=== PATIENT | female | born 1970 | race Caucasian/White ===

== ENCOUNTER 2017-12-18 22:21 | Inpatient (IN) | payer OTHER ==
[2017-12-19 00:06] LABS: ABS Basophils 0.1 10^3/ul (0-0.2); ABS Eosinophils 0.3 10^3/ul (0-0.6); ABS Lymphocytes 1.6 10^3/ul (1.0-4.8); ABS Monocytes 0.7 10^3/ul (0-0.8); ABS Neutrophils 8.6 10^3/ul (1.5-7.7); ABS Nucleated RBC 0 10^3/ul; Eosinophil % 2.3 % (0-6); Hematocrit 29 % (35-47); Hemoglobin 9.5 g/dl (12.0-16.0); Lymphocyte % 14.5 % (25-47); Mean Corpuscular HGB Conc 33 g/dl (31-36); Mean Corpuscular Hemoglobin 30 pg (27-31); Mean Corpuscular Volume 89 fL (80-97); Mean Platelet Volume 9.2 um3 (7.4-10.4); Nucleated Red Blood Cells % 0; Platelet Count 265 10^3/ul (150-450); Red Cell Distribution Width 13 % (10.5-15); White Blood Count 11.2 10^3/ul (3.5-10.8)
[2017-12-19 01:22] LABS: Urine Appearance Cloudy; Urine Blood Negative (Negative); Urine Color Yellow; Urine Ketones Negative (Negative); Urine Protein Negative (Negative); Urine Specific Gravity 1.014 (1.010-1.030); Urine Urobilinogen Negative (Negative)
[2017-12-19] MEDS ORDERED: Vancomycin(*) 1,000 MG in NS 0.9% 250 ML* 250 ML IVPB ONE ×2 (01:45→03:30)
[2017-12-19] MEDS ORDERED: Piperacillin/Tazobac ADVAN(*) 3.375 GM in NS 0.9% 100 ML* 100 ML IVPB ONE ×2 (01:46→13:43)
--- NOTE | 2017-12-19 02:21 | ED ---
HPI Febrile Illness - HPI Summary HPI Summary: Complains of fever up to 103 starting Tuesday, and redness and pain appearing on abdomen 2 days. History of breast reduction surgery, tummy tuck, liposuction on 12/06 with [facility] with Dr. Reed. Also complains of possible yeast infection due to vaginal itching and discharge after taking antibiotics for surgery. Currently being treated with Diflucan. Patient called surgeon today and was advised to come to the ED for possible cellulitis. Patient started on Keflex today by phoned in prescription. Denies cough, sore throat, CP, SOB, N/V/D, change in BM - History of Current Complaint Chief Complaint: EDGeneral Time Seen by Provider: 12/18/17 23:39 Hx Last Menstrual Period: 2 years - uterine ablasion Pain Intensity: 1 - Allergy/Home Medications Allergies/Adverse Reactions: Allergies Allergy/AdvReac Type Severity Reaction Status Date / Time codeine Allergy Nausea Verified 12/18/17 22:23 Home Medications: Home Medications Cephalexin CAP* [Keflex 500 CAP*] 500 mg PO TID 12/19/17 [History Confirmed ] oxyCODONE/Acetamin 5/325 MG* [Percocet 5/325 TAB*] 1 tab PO Q4HR PRN 12/19/17 [ History Confirmed 12/19/17] PMH/Surg Hx/FS Hx/Imm Hx Endocrine/Hematology History: Denies: Hx Diabetes, Hx Sickle Cell Disease, Hx Thyroid Disease Cardiovascular History: Denies: Hx Hypertension, Hx Pacemaker/ICD, Other Cardiovascular Problems/ Disorders Respiratory History: Denies: Hx Asthma, Hx Chronic Obstructive Pulmonary Disease (COPD), Other Respiratory Problems/Disorders GI History: Reports: Hx Gastroesophageal Reflux Disease - rarely, treats w/Tums Denies: Hx Ulcer, Other GI Disorders Musculoskeletal History: Reports: Hx Back Problems - herniated discs, chronic pain, Hx Orthopedic Injury - (right) knee ACL repair 1988 Denies: Other Musculoskeletal History Sensory History: Denies: Hx Contacts or Glasses, Hx Hearing Aid Opthamlomology History: Denies: Hx Contacts or Glasses Neurological History: Denies: Other Neuro Impairments/Disorders Psychiatric History: Reports: Hx Anxiety - MEDICATION FOR, Hx Depression - 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 1987 RT ACL REPAIR. 2008 RT KNEE SCOPE- [facility]. EXCISION FOREIGN OBJECT FROM MOUTH A CHILD , BACK SURGERY 2012, TWO CARPAL TUNNEL SURGERIES. LOWER BACK SURGERY- FOR HERNIATED DISC-. RIGHT WRIST CARPAL TUNNEL RELEASE-11/2013 Hx Anesthesia Reactions: No Infectious Disease History: No Infectious Disease History: Denies: Hx Clostridium Difficile, Hx Hepatitis, Hx Human Immunodeficiency Virus (HIV), Hx of Known/Suspected MRSA, Hx Shingles, Hx Tuberculosis, Traveled Outside the [place] in Last 30 Days - Family History Known Family History: Positive: Cardiac Disease - Social History Alcohol Use: None Substance Use Type: Reports: None Smoking Status (MU): Never Smoked Tobacco Have You Smoked in the Last Year: No Review of Systems Positive: Fever Eyes: Negative ENT: Negative Cardiovascular: Negative Respiratory: Negative Gastrointestinal: Negative Positive: discharge Musculoskeletal: Negative Positive: Other Neurological: Negative Psychological: Normal All Other Systems Reviewed And Are Negative: Yes Physical Exam - Summary Physical Exam Summary: Surgical wounds are clean dry and intact. No purulent drainage noted. Drains appear to be functioning properly. Cellulitis across bilateral upper abdomen and suprapubic area. Patient denies abdominal pain but abdomen is tender when palpated. Area over bilateral kidneys is tender, hard to determine whether CVA tenderness or tenderness due to liposuction in this area. Triage Information Reviewed: Yes Vital Signs On Initial Exam: Initial Vitals Temp Pulse Resp BP Pulse Ox 97.6 F 83 18 114/46 96 12/18/17 22:23 12/18/17 22:23 12/18/17 22:23 12/18/17 22:23 12/18/17 22:23 Vital Signs Reviewed: Yes Appearance: Positive: Well-Appearing Skin: Positive: Warm Head/Face: Positive: Normal Head/Face Inspection Eyes: Positive: Normal Neck: Positive: Supple Respiratory/Lung Sounds: Positive: Clear to Auscultation Cardiovascular: Positive: Normal Musculoskeletal: Positive: Normal Neurological: Positive: Normal Psychiatric: Positive: Normal AVPU Assessment: Alert - Sofia Coma Scale Best Eye Response: 4 - Spontaneous Best Motor Response: 6 - Obeys Commands Best Verbal Response: 5 - Oriented Coma Scale Total: 15 Diagnostics - Vital Signs Vital Signs Temp Pulse Resp BP Pulse Ox 12/18/17 23:35 80 93/65 98 12/18/17 23:34 78 99 12/18/17 22:23 97.6 F 83 18 114/46 96 - Laboratory Lab Results: Lab Results 12/18/17 12/18/17 12/18/17 Range/Units 01:00 23:51 23:51 WBC 11.2 H (3.5-10.8) 10^3/ul RBC 3.20 L (4.0-5.4) 10^6/ul Hgb 9.5 L (12.0-16.0) g/dl Hct 29 L (35-47) % MCV 89 (80-97) fL MCH 30 (27-31) pg MCHC 33 (31-36) g/dl RDW 13 (10.5-15) % Plt Count 265 (150-450) 10^3/ul MPV 9.2 (7.4-10.4) um3 Neut % (Auto) 76.6 (38-83) % Lymph % (Auto) 14.5 L (25-47) % Murray % (Auto) 5.9 (0-7) % Eos % (Auto) 2.3 (0-6) % Baso % (Auto) 0.7 (0-2) % Absolute Neuts (auto) 8.6 H (1.5-7.7) 10^3/ul Absolute Lymphs (auto) 1.6 (1.0-4.8) 10^3/ul Absolute Monos (auto) 0.7 (0-0.8) 10^3/ul Absolute Eos (auto) 0.3 (0-0.6) 10^3/ul Absolute Basos (auto) 0.1 (0-0.2) 10^3/ul Absolute Nucleated RBC 0 10^3/ul Nucleated RBC % 0 Sodium 132 L (139-145) mmol/L Potassium 3.5 (3.5-5.0) mmol/L Chloride 102 (101-111) mmol/L Carbon Dioxide 21 L (22-32) mmol/L Anion Gap 9 (2-11) mmol/L BUN 14 (6-24) mg/dL Creatinine 0.68 (0.51-0.95) mg/dL Est GFR ( Amer) 118.3 (>60) Est GFR (Non-Af Amer) 92.0 (>60) BUN/Creatinine Ratio 20.6 H (8-20) Glucose 134 H (70-100) mg/dL Lactic Acid (0.5-2.0) mmol/L Calcium 8.4 L (8.6-10.3) mg/dL Total Bilirubin 0.50 (0.2-1.0) mg/dL AST 12 L (13-39) U/L ALT 13 (7-52) U/L Alkaline Phosphatase 288 H (34-104) U/L C-Reactive Protein 393.83 H (< 5.00) mg/L Total Protein 6.3 L (6.4-8.9) g/dL Albumin 3.0 L (3.2-5.2) g/dL Globulin 3.3 (2-4) g/dL Albumin/Globulin Ratio 0.9 L (1-3) Urine Color Yellow Urine Appearance Cloudy Urine pH 5.0 (5-9) Ur Specific [place] 1.014 (1.010-1.030) Urine Protein Negative (Negative) Urine Ketones Negative (Negative) Urine Blood Negative (Negative) Urine Nitrate Negative (Negative) Urine Bilirubin Negative (Negative) Urine Urobilinogen Negative (Negative) Ur Leukocyte Esterase 3+ A (Negative) Urine WBC (Auto) 3+(>20/hpf) A (Absent) Urine RBC (Auto) Trace(0-2/hpf) (Absent) Ur Squamous Epith Cells Present A (Absent) Ur Transition Epith Cell Present A (Absent) Urine Bacteria Absent (Absent) Urine Glucose Negative (Negative) 12/18/17 Range/Units 23:51 WBC (3.5-10.8) 10^3/ul RBC (4.0-5.4) 10^6/ul Hgb (12.0-16.0) g/dl Hct (35-47) % MCV (80-97) fL MCH (27-31) pg MCHC (31-36) g/dl RDW (10.5-15) % Plt Count (150-450) 10^3/ul MPV (7.4-10.4) um3 Neut % (Auto) (38-83) % Lymph % (Auto) (25-47) % Murray % (Auto) (0-7) % Eos % (Auto) (0-6) % Baso % (Auto) (0-2) % Absolute Neuts (auto) (1.5-7.7) 10^3/ul Absolute Lymphs (auto) (1.0-4.8) 10^3/ul Absolute Monos (auto) (0-0.8) 10^3/ul Absolute Eos (auto) (0-0.6) 10^3/ul Absolute Basos (auto) (0-0.2) 10^3/ul Absolute Nucleated RBC 10^3/ul Nucleated RBC % Sodium (139-145) mmol/L Potassium (3.5-5.0) mmol/L Chloride (101-111) mmol/L Carbon Dioxide (22-32) mmol/L Anion Gap (2-11) mmol/L BUN (6-24) mg/dL Creatinine (0.51-0.95) mg/dL Est GFR ( Amer) (>60) Est GFR (Non-Af Amer) (>60) BUN/Creatinine Ratio (8-20) Glucose (70-100) mg/dL Lactic Acid 0.8 (0.5-2.0) mmol/L Calcium (8.6-10.3) mg/dL Total Bilirubin (0.2-1.0) mg/dL AST (13-39) U/L ALT (7-52) U/L Alkaline Phosphatase (34-104) U/L C-Reactive Protein (< 5.00) mg/L Total Protein (6.4-8.9) g/dL Albumin (3.2-5.2) g/dL Globulin (2-4) g/dL Albumin/Globulin Ratio (1-3) Urine Color Urine Appearance Urine pH (5-9) Ur Specific [place] (1.010-1.030) Urine Protein (Negative) Urine Ketones (Negative) Urine Blood (Negative) Urine Nitrate (Negative) Urine Bilirubin (Negative) Urine Urobilinogen (Negative) Ur Leukocyte Esterase (Negative) Urine WBC (Auto) (Absent) Urine RBC (Auto) (Absent) Ur Squamous Epith Cells (Absent) Ur Transition Epith Cell (Absent) Urine Bacteria (Absent) Urine Glucose (Negative) Result Diagrams: 12/18/17 23:51 12/18/17 23:51 Lab Statement: Any lab studies that have been ordered have been reviewed, and results considered in the medical decision making process. Course/Dx - Course Course Of Treatment: Patient complains of fever up to 103, redness and tenderness across her stomach 3 days with vaginal itching and burning as well. Patient started on Keflex today by surgeon for cellulitis, told to come to the ED for further evaluation. Treating vaginal symptoms with Diflucan. History of breast reduction, tummy tuck, liposuction on 12/06 with [facility]. Vital signs within normal limits and stable. Patient nonseptic. Alkaline phosphatase elevated, but patient denies N/V or right upper quadrant pain when not palpated in that area. Definite pain in right upper quadrant when palpated. Hard to determine if pain is related to surgical wounds or gallbladder. Ultrasound gallbladder not available at this time. Discussed patient with Dr. Santillan on-call for the [facility] who wished us to keep patient and give her IV antibiotics. Discussed patient with Dr. Tam who recommended IV antibiotics and discharge as patient does not meet sepsis criteria, with advice the patient return for any concerning symptoms. IV vancomycin and Zosyn given here in the ED. Patient already on Keflex, told to continue taking which will cellulitis and UTI. Advised to return for any new or concerning symptoms. Dr Drake will consult on pt and decide dispo at that time. - Diagnoses Provider Diagnoses: Cellulitis, UTI (urinary tract infection), Elevated alkaline phosphatase level - Provider Notifications Discussed Care Of Patient With: Marco Tam Time Discussed With Above Provider: 04:01 - WILL CONSULT ON PT Discharge - Sign-Out/Discharge Documenting (check all that apply): Discharge/Admit/Transfer - Discharge Plan Condition: Stable Disposition: ADMITTED TO [facility] Patient Education Materials: Urinary Tract Infection in Women (ED), Cellulitis (ED) Referrals: Keila Ortega MD [Primary Care Provider] - Additional Instructions: Follow-up with your plastic surgeon. Continue to take Keflex. Return to the ED for any new or worsening symptoms - Billing Disposition and Condition Condition: STABLE Disposition: [facility]
[2017-12-19] MEDS ORDERED: Acetaminophen TAB* 325 MG PO ONE (03:02)
[2017-12-19] MEDS: NS 0.9% 1000 ML* 2,000 ML IV ONE (04:29)
[2017-12-19] MEDS ORDERED: Iohexol 300* (CONTRAST) 10 ML SDV IV ONE (11:41)
--- NOTE | 2017-12-19 12:48 | RAD ---
HISTORY: Status post abdominoplasty, rule out abscess COMPARISONS: None TECHNIQUE: Multiple contiguous axial CT scans were obtained of the chest, abdomen, and pelvis after the administration of intravenous contrast. Coronal and sagittal multiplanar reformations are submitted for review.. Oral contrast was administered. Delayed images were obtained through the abdomen and pelvis. FINDINGS: CHEST NECK AND THYROID: The lower neck and thyroid are unremarkable. CHEST WALL: There is no lower cervical, axillary, or supraclavicular lymphadenopathy by size criteria. HEART AND PERICARDIUM: The heart is unremarkable. AORTA AND PULMONARY VASCULATURE: Evaluation is limited due to the phase of contrast demonstration; however, there are filling defects within the lobar branches of the right pulmonary artery consistent with pulmonary embolism. The aorta is unremarkable. MEDIASTINUM: There is no mediastinal lymphadenopathy by size criteria. ITALIA: There is no hilar lymphadenopathy by size criteria. AIRWAY AND ESOPHAGUS: The airway is unremarkable, without endobronchial filling defect. The esophagus is grossly normal. LUNG PARENCHYMA: The lungs are clear. PLEURA: No pleural abnormalities are noted. BONES AND SOFT TISSUES: No bone or soft tissue abnormalities are noted. ABDOMEN/PELVIS: LIVER: The liver is diffusely low in attenuation compared to the spleen. There are no focal hepatic parenchymal masses. The liver measures 22 cm in long axis. BILE DUCTS: There is no intrahepatic or extrahepatic biliary dilatation. GALLBLADDER: The gallbladder is normal, without pericholecystic inflammatory change. PANCREAS: The pancreas is normal, without mass or ductal dilatation. SPLEEN: Normal in size and appearance. UPPER GI TRACT: Evaluation of the gastrointestinal tract is limited by incomplete gastric distention. The upper GI tract is unremarkable. SMALL BOWEL & MESENTERY: The small bowel is normal in contour, course, and caliber. There is no obstruction or dilatation. COLON: The colon is normal in contour, course, caliber. There is no pericolonic inflammatory change. ADRENALS: Normal bilaterally. KIDNEYS: The kidneys are normal in shape, size, contour, and axis. There is no hydronephrosis or nephrolithiasis. BLADDER: The bladder is smooth in contour. PELVIC ORGANS: The uterus and adnexa are grossly normal for technique. AORTA: The aorta is normal. IVC: Unremarkable LYMPH NODES: There is no lymphadenopathy by size criteria. ABDOMINAL WALL: A surgical drain is noted. There is extensive subcutaneous edema of the anterior abdominal wall and flanks bilaterally. There is no loculated fluid collection to suggest abscess. BONES AND SOFT TISSUES: Mild degenerative changes are noted at L5-S1. OTHER: None IMPRESSION: 1. NO LOCULATED FLUID COLLECTION TO SUGGEST ABSCESS. EXTENSIVE ABDOMINAL WALL SUBCUTANEOUS EDEMA CONSISTENT WITH THE HISTORY OF RECENT SURGERY. 2. PULMONARY ARTERIAL FILLING DEFECTS WITHIN THE LOBAR BRANCHES OF THE RIGHT PULMONARY ARTERY CONSISTENT WITH PULMONARY EMBOLISM. 3. HEPATOMEGALY WITH FATTY INFILTRATION OF THE LIVER. PRELIMINARY FINDINGS WERE DISCUSSED WITH DR. ZAPIEN IN THE EMERGENCY DEPARTMENT AT APPROXIMATELY 12:40 PM ON DEC 19 2017.
--- NOTE | 2017-12-19 13:07 | CONS ---
CC: Dr. Keila Ortega; Keyur Reed MD, [address] [place] [address]. * SURGICAL CONSULTATION REPORT: DATE OF CONSULT: 12/19/17 HISTORY OF PRESENT ILLNESS: I was contacted by the hospitalist service regarding Alexandrea Albert, 47-year-old female who is just under 2 weeks status post of abdominoplasty, liposuction, and bilateral breast reduction who presented to the emergency room as requested per plastic surgeon for evaluation for fevers, chills, and worsening upper abdominal pain. In the emergency room, the patient had labs drawn and these were reviewed. No significant additional workup performed and emergency room reached out to the hospitalist service for admission for concern of SIRS and the hospitalist service contacted me. The patient describes having an uneventful postoperative course. She was given Keflex in the postoperative period. She was followed up one week postoperatively and describes being in good condition. She went back to work. She completed her course of antibiotics. She continue to having ELMIRA drains in the lower incision. She would record these daily. On Tuesday, the patient states she was not feeling well, just general malaise with fever. She had abdominal pain, but thought this was a typical course. It was not until yesterday when the patient reached out to her surgeon who restarted her on Keflex. The patient did spike a fever to 103 and was recommended to go to the emergency room. Since coming to the emergency room, the patient does states that she feels somewhat better. Pain is mostly in the upper abdomen where she describes having a tightness. She describes decreased sensation along the skin in the lower abdomen. She describes the drains with persistent drainage that has changed to a cloudier drainage on the left side about 2 days ago. She has been applying antibiotic ointment to the breast incision along with gauze. PAST MEDICAL HISTORY: Anxiety. MEDICATIONS: Reviewed. ALLERGIES: She is allergic to CODEINE. SOCIAL HISTORY: She is a nonsmoker, night time nanny employment, rarely drinks. REVIEW OF SYSTEMS: Fevers and chills as described. No cardiovascular disease. No cerebrovascular disease. No complications with anesthesia. Good exercise tolerance. The patient is doing weight loss program through [employer] using [employer]. She denies nausea or vomiting. She has been having normal bowel movements. Appetite has been fine. No significant weight loss or weight gain. No history of DVT. No metabolic disorders other than obesity. PHYSICAL EXAM: Vital Signs: One temperature has been drawn since arrival was 97.6. Blood pressure 104/58 it had gone as low as 82 in the early hours, systolic. Heart rate normal. General: She is alert and oriented x3. She is in no apparent distress. Head, Ears, Eyes, Nose, and Throat: Normocephalic and atraumatic. Sclerae anicteric. Mucous membranes are moist. Abdomen: Soft , thought secondary to the surgery as one would expect, there is no erythema. It is tender diffusely but without rebound. There is no ecchymosis. No cellulitis. Lower abdominal incision is healing well. Steri-Strips off. ELMIRA drains show serous drainage at the right-sided ELMIRA drain and cloudy yellowish at the left drain, these go through the incision site. Incision extends in the midline towards the umbilicus. The umbilical incision is also intact without erythema. There is no drainage from these sites other than at the ELMIRA drains, it is dry and intact. Breast: Breast incisions bilaterally are also intact with most of the Steri-Strips fallen off. There is no erythema. No drainage. Nipple incisions are also intact without breakdown. Extremities: Within normal limits. IMPRESSION: Status post panniculectomy, abdominoplasty, breast reduction, and liposuction. The patient with reported fever at home, afebrile now. White count of 11.2 without left shift. She does have an elevated CRP of 390. Urinalysis shows white blood cells, but negative nitrites. She may be suffering with a possible seroma or infected seroma within the abdominal wall. My inclination would be antibiotics at this point and followup with her surgeon who can evaluate her for the possibility of imaging and even surgical intervention, but I think the prudent thing initially would be antibiotics and observation. I think she will be better served and I have asked the emergency room to call her plastic surgeon. If there is thought of admission, she can be admitted under OBV; we will see her again tomorrow, if this is the case. This was discussed with the patient as well as the emergency room physicians. TIME SPENT: Overall 40 minutes was spent with the patient going over the plan of care as well as examination. [id number]/[facility] #: [id number] SONIDO
[2017-12-19] MEDS ORDERED: Morphine VIAL* 4 MG/ML VIAL (1 ml vial) IV PRN (13:25)
[2017-12-19] MEDS ORDERED: Ibuprofen TAB* 600 MG PO PRN (13:26)
[2017-12-19] MEDS ORDERED: Zosyn per Pharmacy* NOTE FOLLOW UP SCH (14:00)
[2017-12-19] MEDS ORDERED: Heparin VIAL(*) 5000 UNITS/ML VIAL (FIVE THOUSAND) ONE (14:04)
[2017-12-19] MEDS ORDERED: Heparin DRIP 25,000 UNITS(*) 25,000 UNITS/500 ML BAG ONE (14:05)
--- NOTE | 2017-12-19 14:08 | ED ---
Luis Yang Rebecca, scribed for Stephen Zapien on 12/19/17 at 0956 . Progress - Progress Note Progress Note: Pt was signed out by Doug Craft, pending dispo, awaiting consultations. - Results/Orders Results/Orders: CT Chest/Abd/Pel: Read by radiologist: 1. NO LOCULATED FLUID COLLECTION TO SUGGEST ABSCESS. EXTENSIVE ABDOMINAL WALL SUBCUTANEOUS EDEMA CONSISTENT WITH THE HISTORY OF RECENT SURGERY. 2. PULMONARY ARTERIAL FILLING DEFECTS WITHIN THE LOBAR BRANCHES OF THE RIGHT PULMONARY ARTERY CONSISTENT WITH PULMONARY EMBOLISM. 3. HEPATOMEGALY WITH FATTY INFILTRATION OF THE LIVER. PRELIMINARY FINDINGS WERE DISCUSSED WITH DR. ZAPIEN IN THE EMERGENCY DEPARTMENT AT APPROXIMATELY 12:40 PM ON DEC 19 2017. ED physician reviewed this report. Re-Evaluation - Re-Evaluation First Eval Re-Evaluation Time: 10:14 Comment: Updated the pt. She is concerned about going home. Course/Dx - Course Course Of Treatment: Pt was signed out by Doug Craft, pending dispo, awaiting consultations. CT Chest/abd/pel reveals a pulmonary embolism with full findings above. Discussed care of pt with Dr. Francois who advised consultation with the pt's surgeon. Discussed care of pt with her surgeon, Dr. Lou Santillan , who is requesting CTs. Discussed care of pt with Dr. Francois again at 1030 who requested blood cultures. Discussed with Dr. Clay at [address] Chest/Abd/Pel findings of PE. Discussed with Dr. Santillan again at 1245, sharing the CT findings and she will call back. Discussed care of pt with Dr. Santillan again at 1250 who recommeneded [place] [facility] Discussed with Dr. Ennis again at 1300 who accepts pt for admission. Further discussed with Dr. Francois, asking him to do a consultation. Pt will be admitted with Dx of pulmonary embolism, cellulitis, septic shock, status post abdominalplasty, status post breast reduction and elevated alkaline phosphatase level. 1 hour of critical care time. Allergy noted. - Diagnoses Provider Diagnoses: Cellulitis, Elevated alkaline phosphatase level, Pulmonary embolism, Septic shock, Status post abdominoplasty, Status post breast reduction - Provider Notifications Discussed Care Of Patient With: Herman Francois Time Discussed With Above Provider: 09:50 Instructed by Provider To: Other - Advised consultation with the pt's surgeon. Discussed care of pt with her surgeon, Dr. Lou Santillan, who is requesting CTs. Discussed care of pt with Dr. Francois again at 1030 who requested blood cultures. Discussed with Dr. Clay at [address] Chest/Abd/Pel findings of PE. Discussed with Dr. Santillan again at 1245, sharing the CT findings and she will call back. Discussed care of pt with Dr. Santillan again at 1250 who recommeneded admission to [place]ist [place] [facility] [place] Discussed with Dr. Ennis again at 1300 who accepts pt for admission. Further discussed with Dr. Francois, asking him to do a consultation. - Critical Care Time Critical Care Time: 30-74 min - 60 minutes Discharge - Sign-Out/Discharge Documenting (check all that apply): Discharge/Admit/Transfer - Admit - Discharge Plan Condition: Stable Disposition: ADMITTED TO [facility] Patient Education Materials: Urinary Tract Infection in Women (ED), Cellulitis (ED) Referrals: Keila Ortega MD [Primary Care Provider] - The documentation as recorded by the Luis gao Rebecca accurately reflects the service I personally performed and the decisions made by , Stephen Zapien.
[2017-12-19] MEDS: oxyCODONE/Acetamin 5/325 MG* TAB PO PRN (14:12)
[2017-12-19] MEDS: NS 0.9% 1000 ML* 1,000 ML IV SCH ×2 (14:15→22:27)
[2017-12-19 14:18] LABS: INR 1.11 (0.77-1.02)
[2017-12-19] MEDS: Heparin VIAL(*) 5000 UNITS/ML VIAL (FIVE THOUSAND) IV PRN ×2 (14:20→19:39)
[2017-12-19] MEDS: Heparin DRIP 25,000 UNITS(*) 25,000 UNITS/500 ML BAG IV SCH (14:21)
[2017-12-19] MEDS ORDERED: Vancomycin(*) 1,250 MG in NS 0.9% 250 ML* 250 ML IVPB ONE (15:00)
[2017-12-19] MEDS: Acetaminophen TAB* 325 MG PO PRN (15:14)
--- NOTE | 2017-12-19 16:03 | PN ---
Sepsis Event Evaluation Date of Evaluation: 12/19/17 Time of Evaluation: 16:00 Current Stage of Sepsis: Sepsis Vital Signs - Last 12 Hours: Vital Signs - 12 hr Temp Pulse Resp BP Pulse Ox 12/19/17 14:37 100 F 89 16 125/64 99 12/19/17 14:14 100.2 F 95 126/78 98 12/19/17 14:12 16 12/19/17 14:11 95 100 12/19/17 14:10 93 126/78 98 Lactic Acid: 0.8, next one pending - Cardiopulmonary Exam Capillary Refill: Immediate Respiratory: Symmetrical Chest Expansion and Respiratory Effort, Clear to Auscultation, Clear to Percussion, Clear to Palpation Cardiovascular: NL Sounds; No Murmurs; No JVD, RRR, No Edema - Peripheral Pulse Exam Radial Pulses: Bilateral Normal Pedal Pulses: Bilateral Normal - Skin Exam Skin Exam: Flushed - Sofia Coma Scale Best Eye Response: 4 - Spontaneous Best Motor Response: 6 - Obeys Commands Best Verbal Response: 5 - Oriented - new labs ordered and pending, pt is comfortable, but anxious about her fever of 103 Coma Scale Total: 15 Assess/Plan/Problems-Billing Assessment: 47 yo F with recent extensive plastic surgery on abd and breasts with sepsis due to cellulitis and PE Cont. Vanc/Zosyn. Hemodynamically stable. F/u labs ordered
[2017-12-19 16:49] LABS: ABS Basophils 0.1 10^3/ul (0-0.2); ABS Eosinophils 0.2 10^3/ul (0-0.6); ABS Lymphocytes 1.2 10^3/ul (1.0-4.8); ABS Monocytes 0.3 10^3/ul (0-0.8); ABS Nucleated RBC 0 10^3/ul; Hematocrit 28 % (35-47); Hemoglobin 9.1 g/dl (12.0-16.0); Lymphocyte % 12.7 % (25-47); Mean Corpuscular HGB Conc 32 g/dl (31-36); Mean Corpuscular Hemoglobin 29 pg (27-31); Mean Corpuscular Volume 90 fL (80-97); Mean Platelet Volume 9.8 um3 (7.4-10.4); Nucleated Red Blood Cells % 0; Platelet Count 288 10^3/ul (150-450); Red Blood Count 3.11 10^6/ul (4.0-5.4); Red Cell Distribution Width 13 % (10.5-15); White Blood Count 9.8 10^3/ul (3.5-10.8)
[2017-12-19] MEDS ORDERED: NS 0.9% 1000 ML* 1,000 ML IV ONE (16:55)
[2017-12-19 17:03] LABS: EGFR Non-African American 115.1 (>60)
[2017-12-19] MEDS: Citalopram TAB* 10 MG PO SCH (19:11)
[2017-12-19] MEDS: ZOSYN 3.375 GM Q8H per EXTENDED INFUSION IVPB SCH ×2 (19:30)
[2017-12-19] MEDS ORDERED: Magnesium Sulfate 2 GM IV* 2 GM/50 ML BAG IVPB ONE (20:20)
--- NOTE | 2017-12-19 20:41 | PN ---
Hospitalist Progress Note Date of Service: 12/19/17 Called to floor by RN to emergently evaluate the patient for vomiting and changes on tele. Upon evaluation of tele, patient had what appears to be a Mobitz I block then felt nauseous and vomited, then had a 12 second pause. Patient states she felt as if she passed out during the episode. She is currently awake and conversant, flushed and visibly anxious. Ordered external pacer pads, 2 gm Mag, troponin and CBC. Dr. Tam discussed with Dr. Salazar from cardiology who will evaluate tomorrow. Patient to be transferred to ICU for closer monitoring. Requested by patient to call her Issac to update on status. Requested hydro excavation operator to contact her plastic surgeon Dr. Keyur Reed in [facility] to advise of patient's change in status. Dr. Tam left his mobile number with Dr. Reed's service.
[2017-12-19] MEDS ORDERED: Ondansetron INJ* 2 MG/ML VIAL IV PRN (20:46)
[2017-12-19 20:48] LABS: ABS Basophils 0.1 10^3/ul (0-0.2); ABS Eosinophils 0.2 10^3/ul (0-0.6); ABS Lymphocytes 1.8 10^3/ul (1.0-4.8); ABS Monocytes 0.4 10^3/ul (0-0.8); ABS Nucleated RBC 0 10^3/ul; Hematocrit 26 % (35-47); Hemoglobin 8.6 g/dl (12.0-16.0); Lymphocyte % 18.6 % (25-47); Mean Corpuscular HGB Conc 33 g/dl (31-36); Mean Corpuscular Hemoglobin 30 pg (27-31); Mean Corpuscular Volume 90 fL (80-97); Mean Platelet Volume 9.2 um3 (7.4-10.4); Nucleated Red Blood Cells % 0; Platelet Count 283 10^3/ul (150-450); Red Blood Count 2.88 10^6/ul (4.0-5.4); Red Cell Distribution Width 13 % (10.5-15); White Blood Count 9.4 10^3/ul (3.5-10.8)
--- NOTE | 2017-12-19 21:14 | HP ---
CC: Dr. Keila Ortega; Dr. Francois; Dr. Keyur Reed, ; Dr. Lou Santillan * HISTORY AND PHYSICAL: DATE OF ADMISSION: 12/19/17 PRIMARY CARE PROVIDER: Dr. Keila Ortega. CHIEF COMPLAINT: Fever. HISTORY OF PRESENT ILLNESS: Alexandrea Albert is a 47-year-old female with history of obesity who had abdominoplasty, liposuction, and bilateral breast reduction performed by Dr. Reed on 12/06/17. The patient stated that postoperatively, she was on antibiotics for approximately 7 days, which ended on 12/13/17. She did okay to the point of going to work on 12/15/17, but a day later on 12/16/17, she started developing fevers. The highest fever was documented at 103 degrees at home. She called back Dr. Reed's service and spoke with Dr. Santillan, who started the patient on Keflex. The patient also came into the hospital today for evaluation for continuation of feeling poorly and fevers. Here, her systolic pressures had been in the 90s, but after initial intravenous fluids, it wil now to 111 systolically. The patient's maximum temperature was 97.6. A CT of the chest, abdomen and pelvis was obtained after the ED physician discussed the patient's case with Dr. Santillan and showed no evidence of abscess, but positive for small right-sided pulmonary embolism. The CT also showed extensive abdominal wall subcutaneous edema. The patient is going to be admitted with a diagnosis of sepsis, which appears to be likely due to abdominal wall cellulitis as well as PE. PAST MEDICAL HISTORY: 1. On 11/26/17, liposuction, abdominoplasty, and bilateral breast reduction performed at [place] by a plastic surgeon. 2. History of anxiety. 3. History of obesity. 4. History of bilateral carpal tunnel release. 5. History of lumbar back surgery in 2012. 6. History of tonsillectomy. 7. History of wisdom teeth removal in the past. 8. History of right knee surgery in 1987. CURRENT MEDICATIONS: Include: 1. Percocet 5/325 mg 1 tablet every 4 hours p.r.n. 2. Celexa 20 mg daily. 3. Estrogen 1 tablet daily. 4. Keflex 500 mg 3 times a day started just yesterday. ALLERGIES: CODEINE causes nausea. The patient had been tolerating oxycodone without any problems as well as morphine. FAMILY HISTORY: Positive for breast cancer on the mother's side, the patient's mother as well as maternal grandmother had breast cancer. Mother of COPD complications at the age of 72. The patient's father with history of CHF at the age of 92. SOCIAL HISTORY: The patient denies any tobacco, alcohol, or drug use. She is a [employer]. Lives with her , who will be her surrogate as needed be. REVIEW OF SYSTEMS: Please see history of present illness. The patient stated that she had been having lower abdominal pain postoperative, but in the past couple of days she decided not to take her narcotic pain medications anymore and complains of significant amount of postoperative pain currently. She had been somewhat short of breath, but she thought it was related to surgery. She complains of pleuritic chest pain, which also she thought was related to the surgery and her incisions underneath bilateral breasts. None of the postoperative pain had changed in the past several days. She denies leg edema. She had been febrile for 4 days up to 103 degrees. Her appetite had been poor. She denies nausea and vomiting. The remaining 12 systems were reviewed with the patient and were otherwise negative. PHYSICAL EXAMINATION GENERAL: The patient is a very pleasant 47-year-old female, who is in no acute distress. The patient is alert, awake, and oriented x3. VITAL SIGNS: Blood pressure of 111/61, heart rate of 81 and regular, respiratory rate 12, oxygen saturation 97% on room air, temperature 97.6. HEENT: Head atraumatic, normocephalic. Eyes, pupils are equal, reactive to light and accommodation. Oropharynx clear. Mucosa moist. NECK: Supple. No JVD. No bruits bilaterally. RESPIRATORY: Fine crackles at bilateral bases. Otherwise, clear. CARDIOVASCULAR: Regular rate and rhythm. No murmur. ABDOMEN: Soft. Mild diffuse tenderness on superficial palpation due to a recent plastic surgery with no rebound. No guarding. Bowel sounds present in all 4 quadrants. SKIN: On evaluation of the skin and evaluation of the patient's postoperative incisions, the patient has bilateral incisions underneath her breasts as well as periareolar incisions bilaterally. Bilateral groin incisions with 2 ELMIRA drains, 1 ELMIRA drain on each side of the abdomen. All of the incisions with neatly approximated edges with no evidence of infection, dehiscence, drainage or cellulitis. The patient's mid abdominal wall and the supraumbilical area has increased warmth. Mild tenderness to palpation and erythema, consistent with cellulitis. There is no cellulitis in the incision sites. EXTREMITIES: There is no edema. Pulses are +2 bilaterally. There is no clubbing or cyanosis. NEUROLOGIC: Speech clear. Cranial nerves II through XII grossly intact. Motor strength is 5/5 bilaterally. DIAGNOSTIC STUDIES/LAB DATA: Laboratory data reveals white blood cell count of 11.2, hemoglobin of 9.5, hematocrit 29, and platelets 265,000. Sodium 132, potassium 3.5, chloride 102, carbon dioxide 21, BUN 14, creatinine 0.68. Glucose 134. Calcium of 8.4, total bilirubin of 0.5, AST of 12, ALT of 13, alkaline phosphatase of 288, C-reactive protein of 393. Total protein of 6.3, albumin of 3.0. Urinalysis showed +3 esterase, but no bacteria. Chest, abdomen and pelvis CT. Impression: "No loculated fluid collection to suggest abscess. Extensive abdominal wall subcutaneous edema consistent with a history of recent surgery. Pulmonary arterial filling defects and lobar branches of the right pulmonary artery consistent with pulmonary embolism. Hepatomegaly with fatty infiltration of the liver." ASSESSMENT AND PLAN: 1. In regards to the patient's pulmonary embolism. Due to the patient being history of postop as of 2 weeks ago, she is going to be initially placed on heparin drip that was already started in the ED and we will continue it. Later on, she probably may be able to just continue on Xarelto at home. I will obtain bilateral lower extremity deep venous thrombosis. At this point, it does not appear that the patient has any lower extremity edema. 2. In regards to the patient's sepsis. It appears to be due to abdominal wall cellulitis and upper mid abdomen. Due to history of extensive surgery on the patient's abdomen, she is going to be placed on vancomycin and Zosyn. We will continue with requesting general surgical consult and Dr. Francois already consulted on this patient in the emergency department. The patient is going to be resuscitated with intravenous fluids. 3. For DVT prophylaxis as mentioned above, the patient is going to be continued on heparin drip. 4. For code status, the patient is considered as full. Her surrogate is her . TIME SPENT: Approximately 72 minutes were spent on the admission of this patient, more than half that time was spent [id number] with the patient during the interview and physical exam. [id number]/CPS #: [id number] SONIDO
[2017-12-19 22:12] LABS: EGFR Non-African American 112.7 (>60)
[2017-12-19] MEDS: LORazepam INJ* 2 MG/ML 1 ML VIAL IV PRN (22:57)
[2017-12-19] MEDS ORDERED: Ondansetron SYRINGE* 4 MG/2 ML SYRINGE (from 40mg/20ml vial) IV PRN (23:00)
[2017-12-19] MEDS ORDERED: Potassium Chlor TAB* 20 MEQ TAB.ER PO ONE (23:03)
[2017-12-20] MEDS: Vancomycin(*) 1,000 MG in NS 0.9% 250 ML* 250 ML IVPB SCH ×3 (00:37→16:42)
[2017-12-20] MEDS: ZOSYN 3.375 GM Q8H per EXTENDED INFUSION IVPB SCH ×4 (02:43→11:01)
[2017-12-20 06:21] LABS: ABS Basophils 0.1 10^3/ul (0-0.2); ABS Eosinophils 0.2 10^3/ul (0-0.6); ABS Lymphocytes 1.9 10^3/ul (1.0-4.8); ABS Monocytes 0.5 10^3/ul (0-0.8); ABS Neutrophils 6.8 10^3/ul (1.5-7.7); ABS Nucleated RBC 0 10^3/ul; Eosinophil % 1.6 % (0-6); Hematocrit 23 % (35-47); Hemoglobin 7.9 g/dl (12.0-16.0); Lymphocyte % 20.3 % (25-47); Mean Corpuscular HGB Conc 34 g/dl (31-36); Mean Corpuscular Hemoglobin 30 pg (27-31); Mean Corpuscular Volume 90 fL (80-97); Mean Platelet Volume 8.9 um3 (7.4-10.4); Nucleated Red Blood Cells % 0; Platelet Count 266 10^3/ul (150-450); Red Cell Distribution Width 14 % (10.5-15); White Blood Count 9.5 10^3/ul (3.5-10.8)
[2017-12-20 06:35] LABS: EGFR Non-African American 112.7 (>60)
[2017-12-20] MEDS: Heparin VIAL(*) 5000 UNITS/ML VIAL (FIVE THOUSAND) IV PRN ×2 (07:37→14:24)
[2017-12-20] MEDS: Heparin DRIP 25,000 UNITS(*) 25,000 UNITS/500 ML BAG IV SCH ×2 (07:38→22:28)
[2017-12-20] MEDS ORDERED: Calcium Gluconate INJ* 1 GM in NS 0.9% 50 ML* 50 ML IVPB ONE (07:47)
[2017-12-20] MEDS ORDERED: NS 0.9% 1000 ML* 1,000 ML IV SCH (07:50)
[2017-12-20] MEDS ORDERED: Potassium Chlor TAB* 20 MEQ TAB.ER PO ONE (07:52)
[2017-12-20] MEDS ORDERED: Polyethylene Glycol 3350* 17 GM PACKET PO SCH (08:00)
--- NOTE | 2017-12-20 08:17 | PN ---
Subjective Date of Service: 12/20/17 Interval History: Pt feels "much better". Stronger, less post op pain in abdomen. Had a BM this AM , no evidence of melena or blood. Had 12 sec of asystole after vomiting last night. Cardiology consulted Objective Active Medications: Acetaminophen (Tylenol Tab*) 650 mg PO Q4H PRN PRN Reason: FEVER/PAIN Last Admin: 12/19/17 15:14 Dose: 650 mg Citalopram Hydrobromide (Celexa Tab*) 20 mg PO QPM [facility] Last Admin: 12/19/17 19:11 Dose: 20 mg Docusate Sodium (Colace Cap*) 100 mg PO BID VASILE Heparin Sodium (Porcine) (Heparin Vial(*)) 0 units IV .BOLUS PRN PRN Reason: BOLUS PER HEPARIN PROTOCOL Last Admin: 12/20/17 07:37 Dose: 2,400 units Heparin Sodium/Dextrose (Heparin Drip 25,000 Units(*)) 25,000 units in 500 mls @ 0 mls/hr IV PER RATE [facility]; Per Protocol PRN Reason: Protocol Last Admin: 12/20/17 07:38 Dose: 34 mls/hr Piperacillin Sod/Tazobactam (Sod 3.375 gm/ Sodium Chloride) 100 mls @ 25 mls/ hr IVPB Q8H [facility] Last Admin: 12/20/17 02:43 Dose: 25 mls/hr Vancomycin HCl 1,000 mg/ (Sodium Chloride) 250 mls @ 166.667 mls/hr IVPB Q8H [facility] Last Admin: 12/20/17 07:39 Dose: 166.667 mls/hr Calcium Gluconate 1 gm/ Sodium (Chloride) 60 mls @ 60 mls/hr IVPB ONCE ONE Stop: 12/20/17 08:46 Sodium Chloride (Ns 0.9% 1000 Ml*) 1,000 mls @ 75 mls/hr IV PER RATE [facility] Last Admin: 12/20/17 08:07 Dose: 75 mls/hr Ibuprofen (Motrin Tab*) 600 mg PO Q8H PRN PRN Reason: PAIN Lorazepam (Ativan Inj*) 0.5 mg IV Q6H PRN PRN Reason: ANXIETY Last Admin: 12/19/17 22:57 Dose: 0.5 mg Morphine Sulfate (Morphine Vial*) 1 mg IV Q4H PRN PRN Reason: PAIN Last Admin: 12/19/17 20:45 Dose: 1 mg Ondansetron HCl (Zofran 40 Mg Vial*) 4 mg IV Q6H PRN PRN Reason: NAUSEA Oxycodone/Acetaminophen (Percocet 5/325 Tab*) 1 tab PO Q4HR PRN PRN Reason: PAIN Last Admin: 12/19/17 14:12 Dose: 1 tab Pharmacy Consult (Zosyn Per Pharmacy*) 1 note FOLLOW UP .ZOSYN PER PHARMACY [facility] Pharmacy Profile Note (Vancomycin Trough Check) 1 note FOLLOW UP 1600 ONE Stop: 12/20/17 16:01 Polyethylene Glycol/Electrolytes (Miralax*) 17 gm PO DAILY [facility] Vital Signs - 8 hr 12/20/17 12/20/17 12/20/17 00:30 01:00 01:30 Temperature Pulse Rate 85 82 79 Respiratory 19 19 19 Rate Blood Pressure 111/52 103/54 109/57 (mmHg) O2 Sat by Pulse 93 94 95 Oximetry 12/20/17 12/20/17 12/20/17 02:00 02:30 03:00 Temperature Pulse Rate 78 84 74 Respiratory 20 18 21 Rate Blood Pressure 104/57 107/60 107/54 (mmHg) O2 Sat by Pulse 95 96 96 Oximetry 12/20/17 12/20/17 12/20/17 03:30 04:00 04:30 Temperature 98.6 F Pulse Rate 75 79 78 Respiratory 22 22 20 Rate Blood Pressure 101/57 106/66 106/61 (mmHg) O2 Sat by Pulse 95 96 95 Oximetry 12/20/17 12/20/17 12/20/17 05:00 05:30 06:00 Temperature Pulse Rate 84 75 80 Respiratory 17 20 21 Rate Blood Pressure 101/56 104/58 112/60 (mmHg) O2 Sat by Pulse 96 96 96 Oximetry 12/20/17 07:40 Temperature 98.8 F Pulse Rate Respiratory Rate Blood Pressure (mmHg) O2 Sat by Pulse Oximetry Oxygen Devices in Use Now: Nasal Cannula Appearance: 47 yo f in nAD, aAOx3 Eyes: No Scleral Icterus, PERRLA Ears/Nose/Mouth/Throat: NL Teeth, Lips, Gums, Mucous Membranes Moist Neck: NL Appearance and Movements; NL JVP, Trachea Midline Respiratory: Symmetrical Chest Expansion and Respiratory Effort, - - crackles at b/l bases Cardiovascular: NL Sounds; No Murmurs; No JVD, RRR Abdominal: - - tender in supraumbilical region with palpable increased density subcu fat and slight erythema on skin. post op incisions in b/l inguinal, suprapubica area as well as around b/l areola's and underneath both breasts with no evidence of dehiscence, wound infection, drainage. ELMIRA drains in b/l lower abd with serous fluid Lymphatic: No Cervical Adenopathy Skin: No Nodules or Sclerosis, - - see above Neurological: Alert and Oriented x 3, NL Muscle Strength and Tone Result Diagrams: 12/20/17 06:05 12/20/17 06:05 Additional Lab and Data: Lab Results 12/18/17 12/18/17 12/18/17 Range/Units 01:00 23:51 23:51 WBC 11.2 H (3.5-10.8) 10^3/ul RBC 3.20 L (4.0-5.4) 10^6/ul Hgb 9.5 L (12.0-16.0) g/dl Hct 29 L (35-47) % MCV 89 (80-97) fL MCH 30 (27-31) pg MCHC 33 (31-36) g/dl RDW 13 (10.5-15) % Plt Count 265 (150-450) 10^3/ul MPV 9.2 (7.4-10.4) um3 Neut % (Auto) 76.6 (38-83) % Lymph % (Auto) 14.5 L (25-47) % Luna % (Auto) 5.9 (0-7) % Eos % (Auto) 2.3 (0-6) % Baso % (Auto) 0.7 (0-2) % Absolute Neuts (auto) 8.6 H (1.5-7.7) 10^3/ul Absolute Lymphs (auto) 1.6 (1.0-4.8) 10^3/ul Absolute Monos (auto) 0.7 (0-0.8) 10^3/ul Absolute Eos (auto) 0.3 (0-0.6) 10^3/ul Absolute Basos (auto) 0.1 (0-0.2) 10^3/ul Absolute Nucleated RBC 0 10^3/ul Nucleated RBC % 0 Sodium 132 L (139-145) mmol/L Potassium 3.5 (3.5-5.0) mmol/L Chloride 102 (101-111) mmol/L Carbon Dioxide 21 L (22-32) mmol/L Anion Gap 9 (2-11) mmol/L BUN 14 (6-24) mg/dL Creatinine 0.68 (0.51-0.95) mg/dL Est GFR ( Amer) 118.3 (>60) Est GFR (Non-Af Amer) 92.0 (>60) BUN/Creatinine Ratio 20.6 H (8-20) Glucose 134 H (70-100) mg/dL Lactic Acid (0.5-2.0) mmol/L Calcium 8.4 L (8.6-10.3) mg/dL Total Bilirubin 0.50 (0.2-1.0) mg/dL AST 12 L (13-39) U/L ALT 13 (7-52) U/L Alkaline Phosphatase 288 H (34-104) U/L C-Reactive Protein 393.83 H (< 5.00) mg/L Total Protein 6.3 L (6.4-8.9) g/dL Albumin 3.0 L (3.2-5.2) g/dL Globulin 3.3 (2-4) g/dL Albumin/Globulin Ratio 0.9 L (1-3) Urine Color Yellow Urine Appearance Cloudy Urine pH 5.0 (5-9) Ur Specific Sarah Ann 1.014 (1.010-1.030) Urine Protein Negative (Negative) Urine Ketones Negative (Negative) Urine Blood Negative (Negative) Urine Nitrate Negative (Negative) Urine Bilirubin Negative (Negative) Urine Urobilinogen Negative (Negative) Ur Leukocyte Esterase 3+ A (Negative) Urine WBC (Auto) 3+(>20/hpf) A (Absent) Urine RBC (Auto) Trace(0-2/hpf) (Absent) Ur Squamous Epith Cells Present A (Absent) Ur Transition Epith Cell Present A (Absent) Urine Bacteria Absent (Absent) Urine Glucose Negative (Negative) 12/18/17 Range/Units 23:51 WBC (3.5-10.8) 10^3/ul RBC (4.0-5.4) 10^6/ul Hgb (12.0-16.0) g/dl Hct (35-47) % MCV (80-97) fL MCH (27-31) pg MCHC (31-36) g/dl RDW (10.5-15) % Plt Count (150-450) 10^3/ul MPV (7.4-10.4) um3 Neut % (Auto) (38-83) % Lymph % (Auto) (25-47) % Luna % (Auto) (0-7) % Eos % (Auto) (0-6) % Baso % (Auto) (0-2) % Absolute Neuts (auto) (1.5-7.7) 10^3/ul Absolute Lymphs (auto) (1.0-4.8) 10^3/ul Absolute Monos (auto) (0-0.8) 10^3/ul Absolute Eos (auto) (0-0.6) 10^3/ul Absolute Basos (auto) (0-0.2) 10^3/ul Absolute Nucleated RBC 10^3/ul Nucleated RBC % Sodium (139-145) mmol/L Potassium (3.5-5.0) mmol/L Chloride (101-111) mmol/L Carbon Dioxide (22-32) mmol/L Anion Gap (2-11) mmol/L BUN (6-24) mg/dL Creatinine (0.51-0.95) mg/dL Est GFR ( Amer) (>60) Est GFR (Non-Af Amer) (>60) BUN/Creatinine Ratio (8-20) Glucose (70-100) mg/dL Lactic Acid 0.8 (0.5-2.0) mmol/L Calcium (8.6-10.3) mg/dL Total Bilirubin (0.2-1.0) mg/dL AST (13-39) U/L ALT (7-52) U/L Alkaline Phosphatase (34-104) U/L C-Reactive Protein (< 5.00) mg/L Total Protein (6.4-8.9) g/dL Albumin (3.2-5.2) g/dL Globulin (2-4) g/dL Albumin/Globulin Ratio (1-3) Urine Color Urine Appearance Urine pH (5-9) Ur Specific Sarah Ann (1.010-1.030) Urine Protein (Negative) Urine Ketones (Negative) Urine Blood (Negative) Urine Nitrate (Negative) Urine Bilirubin (Negative) Urine Urobilinogen (Negative) Ur Leukocyte Esterase (Negative) Urine WBC (Auto) (Absent) Urine RBC (Auto) (Absent) Ur Squamous Epith Cells (Absent) Ur Transition Epith Cell (Absent) Urine Bacteria (Absent) Urine Glucose (Negative) Assess/Plan/Problems-Billing Assessment: 47 yo F with recent extensive plastic surgery on abd and breasts with sepsis due to cellulitis and PE - Patient Problems (1) Pulmonary embolism Comment: post op plastic surgery. cont heparin gtt Hb down -suspect dilution (due to IVF used for sepsis tx) (2) Sepsis Comment: suspect source is the skin and subcu tissue after liposuction in the and wall. cont nick spectrum antibiotics: Zosyn /Vanc. CRP lower today. will d/w ID further tx. Surgery following (3) Anemia Comment: acute on post op suspect dilution stool for guiac pending, no evidence of acute bleeding (4) Syncope Comment: 12 sec pause after N/V possible vaso -vagal Cardiology consult pending Echo ordered Cont telem (5) DVT prophylaxis Comment: heparin gtt dopplers of b/l LE's pending Status and Disposition: inpatient
[2017-12-20] MEDS: Docusate CAP* 100 MG PO SCH ×3 (08:21→21:12)
[2017-12-20] MEDS: Acetaminophen TAB* 325 MG PO PRN ×2 (08:21→14:24)
[2017-12-20] MEDS ORDERED: Polyethylene Glycol 3350* 17 GM PACKET PO PRN (08:31)
[2017-12-20] MEDS ORDERED: Ondansetron 40 MG VIAL* 2 MG/ML 20 ML VIAL IV PRN (09:00)
--- NOTE | 2017-12-20 09:00 | RAD ---
Indication: Pulmonary embolus, recent surgery. Duplex Doppler sonography of the deep venous system of both lower extremities was performed. Bilaterally the common femoral veins, proximal greater saphenous veins, proximal deep femoral veins, femoral veins, popliteal veins, posterior tibial veins and peroneal veins appear patent and compressible. Incidentally noted duplicated right femoral vein is present. IMPRESSION: NO EVIDENCE OF DEEP VENOUS THROMBOSIS OF EITHER LOWER EXTREMITY IS PRESENT.
[2017-12-20] MEDS ORDERED: Perflutren Lipid Microsphere* 3 ML VIAL ONE (10:34)
--- NOTE | 2017-12-20 11:09 | PN ---
Progress Note - Progress Note Date of Service: 12/20/17 SOAP: Subjective: Pt seen and examined. events overnight noted. Pt feeling better today. still with abdo pain. no nausea Objective: [id number], af vss chest: incisions intact, /o celulitis or fluctuance abdo: nondistended, tender mostly on L. some cellulitis, no fluctuence. ELMIRA b/l serous labs, CT noted Assessment: PE, cellulitis s/p cosmetic surgery Plan: abx drainage via ELMIRA drains no need for incision and washout of abdominoplast at this point. ID consult
--- NOTE | 2017-12-20 11:34 | ECHO ---
Patient: SAMMI HALEY [facility] Rec#: [id number] : 1970 Date: 12/20/2017 Age: 47y Height: 157.48 cm / 62.0 in Weight: 90.26 kg / 198.9 lbs Sex: F BSA: 1.91 Room#: [facility] Admit Date#: 12/19/2017 Type: Inpatient Referring: Audrey Ennis MD Reading: Ehsan Rizzo MD Shift Production Associate: Swetha Stanley RDCS CC: Keila Ortega Transthoracic Echocardiogram Indication: Syncope, pulmonary embolism, sepsis. BP: 112/60 HR: 75 Rhythm: NSR with PVCs Findings History: Obesity, s/p plastic surgery early November 2017. Technical Comments: The study is technically difficult. The study is technically limited due to poor acoustic windows. The study was technically limited due to the patient's inability to lay in the left lateral decubitus position. Completed at 1120. Left Ventricle: The left ventricular chamber size is normal. There is no left ventricular hypertrophy. There is normal left ventricular systolic function. The estimated ejection fraction is 55-60%. There is septal flattening of the interventricular septum consistent with right ventricular volume or pressure overload. There is no consistent Doppler evidence of clinically significant diastolic dysfunction. Left Atrium: The left atrium is not well visualized. The left atrium is moderately dilated. Right Ventricle: The right ventricle is mildly dilated. The right ventricular global systolic function is mildly to moderately reduced. Right Atrium: The right atrium is not well visualized. The right atrium is moderately dilated. Aortic Valve: The aortic valve is trileaflet. The aortic valve leaflets are mildly thickened. There is no evidence of aortic regurgitation. There is no evidence of aortic stenosis. Mitral Valve: The mitral valve leaflets are mildly thickened. There is a trace of mitral regurgitation. There is no evidence of mitral stenosis. Tricuspid Valve: The tricuspid valve leaflets are normal. There is mild tricuspid regurgitation. The right ventricular systolic pressure is estimated at 33 mmHg. There is evidence that pulmonary hypertension may be underestimated. There is no tricuspid stenosis. Pulmonic Valve: The pulmonic valve appears normal. There is a trace pulmonic regurgitation. There is no pulmonic stenosis. Pericardium: There is no significant pericardial effusion. A pericardial fat pad is visualized. Aorta: There is no dilatation of the ascending aorta. There is no dilatation of the aortic arch. The aortic root is normal in size. Pulmonary Artery: The main pulmonary artery is not well visualized. Venous: The inferior vena cava is dilated. There is an approximate 50% respiratory change in the inferior vena cava dimension. Contrast: Definity was used to optimize study. 4 mL of diluted Definity was utilized. Intravenous contrast was used to enhance endocardial border definition. Conclusions The study is technically limited due to poor acoustic windows. There is normal left ventricular systolic function. The estimated ejection fraction is 55-60%. There is septal flattening of the interventricular septum consistent with right ventricular volume or pressure overload. The right ventricular global systolic function is mildly to moderately reduced. There is no evidence of aortic regurgitation. There is a trace of mitral regurgitation. There is mild tricuspid regurgitation. The right ventricular systolic pressure is estimated at 33 mmHg. There is evidence that pulmonary hypertension may be underestimated. There is no significant pericardial effusion. Measurements Name Value Normal Range RVIDd (AP) 2D 3.3 cm (0.9 - 2.6) RVDdMajor (2D) 4.4 cm (2.2 - 4.4) RAd ISD 4CH 5.7 cm (3.4 - 4.9) RA (A4C)W 4.7 cm (2.9 - 4.6) IVSd (2D) 0.8 cm (0.6 - 1) LVPWd (2D) 0.9 cm (0.6 - 1) LVIDd (2D) 4.7 cm (3.6 - 5.4) LVIDs (2D) 2.7 cm - LV FS (2D) 42 % (25 - 45) Aortic Annulus 2 cm (1.4 - 2.6) Ao root diameter (2D) 2.4 cm (2.1 - 3.5) Ascending Ao 2.6 cm (2.1 - 3.4) Aortic arch 1.7 cm (1.8 - 3.4) LA dimension (AP) 2D 3.8 cm (2.3 - 3.8) LAd ISD 4CH 6.3 cm (2.9 - 5.3) LA ISD 4CH W 5 cm (2.5 - 4.5) Name Value Normal Range LA ESV SP 4CH (A/L) 105 ml - LA ESV SP 2CH (A/L) 140 ml - LA ESV BP (A/L) 127 ml - LA ESV BP (A/L) index 66 ml/m2 - LA ESV SP 4CH (MOD) 95 ml - LA ESV SP 2CH (MOD) 126 ml - Name Value Normal Range MV E-wave Vmax 1.1 m/sec - MV deceleration time 236.6 msec - MV A-wave Vmax 0.89 m/sec - MV E:A ratio 1.2 ratio - LV septal e' Vmax 0.09 m/sec - LV lateral e' Vmax 0.11 m/sec - LV E:e' septal ratio 12.22 ratio - LV E:e' lateral ratio 10 ratio - Name Value Normal Range AV Vmax 1.4 m/sec - AV VTI 29.34 cm - AV peak gradient 7.87 mmHg - AV mean gradient 4.14 mmHg - LVOT Vmax 1.1 m/sec - LVOT VTI 22.28 cm - LVOT peak gradient 4.54 mmHg - LVOT mean gradient 2.23 mmHg - SHERWIN Vmax 1.37 m/sec - Name Value Normal Range TR Vmax 2.5 m/sec - TR peak gradient 25 mmHg - RAP 8 mmHg - RVSP 33 mmHg - IVC diameter 2.2 cm - Name Value Normal Range PV Vmax 1.3 m/sec - PV peak gradient 7.2 mmHg -
[2017-12-20] MEDS ORDERED: Al Hydrox/Mg Hydrox/Simet LIQ* 30 ML UDC PO PRN (14:49)
[2017-12-20] MEDS: oxyCODONE/Acetamin 5/325 MG* TAB PO PRN (15:41)
[2017-12-20] MEDS ORDERED: Vancomycin Trough Check NOTE FOLLOW UP ONE (16:00)
--- NOTE | 2017-12-20 16:05 | CONSULT ---
<Sharmaine Daniel - Last Filed: 12/20/17 16:35> Consult Consult: Infectious disease consult note Consult requested by: Consult reason: fever HPI: 47 yo woman pmhx anxiety/ADHD, obesity presented with fever. Pt underwent extensive plastic surgery including abdominoplasty, liposuction and b/l breast reduction on 12/06/17 in [facility]. She took 7-days of postop antibiotics which she completed on 12/13. She felt well and went to work on 12/15 but developed a fever on 12/16 up to 103. She called her surgeon's office and was given a course of keflex on 12/18 but still felt unwell so surgeon recommended that she came to ED for evaluation on 12/19. In the ED, she was afebrile but hypotensive to SBP 90/70s, improved with IVF. Per discussion with her surgeon, CT C/A/P was done, which showed small R lobar PE, no fluid collection in the abdomen but extensive subcutaneous edema and fatty liver. She was started on heparin gtt and vanc/zosyn for possible abdominal wall cellulitis. ELMIRA drain fluid was sent to Cx on 12/20 and grew MRSA from both L and R drains. BCx from 12/19 is no growth to date. UCx 12/18 was negative. Doppler of LE was negative for PE. Yesterday, pt had a 12-second pause on telemetry after feeling dizzy/nausea and emesis so transferred to ICU for close monitoring. Cardiology was consulted, TTE showed EF 55-60%, septal flattening from possible RV overload, RV systolic function is reduced. Of note, pt has been taking estrogen 1mg daily and progesterone for 3 years for hormonal replacement post menopause. No Fhx of bleeding/clotting but mom/grandmother had breast cancer. On my exam, pt reported that her ELMIRA drain output became cloudier around Tuesday/ Tuesday, has had intermittent abd pressure. No cough, hemoptysis, headache, dysuria. Having loose BMs, no bloody stool. 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 Never smoker. FHx: Mom, grandmother- breast cancer ROS: 14 point negative unless stated above in HPI. PE: Selected Entries 12/20/17 15:22 Heart Rate 76 Respiratory 19 Rate Blood Pressure 92/50 (mmHg) O2 Sat by Pulse 92 Oximetry Gen- fatigued appearing middle aged woman, no acute distress. HEENT- EOMI, MMM. CV- s1 s2, RRR, no m/r/g Pulm- CTA b/l anteriorly, unable to sit up due to abdominal discomfort. Abd- soft, [address] draining serous yellow fluid with fibrinous materials. large incision with steristrips across the lower abdomen, no fluctuance or purulence. Extrem- no LE edema, no calf tenderness Neuro- AOx3, non focal. Labs: WBC 11.2 --> 9.8 --> 9.4 --> 9.5 Hgb 9.5 --> 9.1 --> 8.6 --> 7.9 CRP 394 UA- 3+LE, wbc 3+, no bacteria UCx- negative BCx 12/19- NGTD Fluid Cx from ELMIRA drains b/l- MRSA A/P: 47 yo woman pmhx anxiety/ADHD, obesity s/p extensive plastic surgery including abdominoplasty, liposuction and b/l breast reduction on 12/06/17 presented with fever/chills, found to meet SIRS criteria on admission. Abdominal fluid Cx growing MRSA, BCx no growth to date, currently on vancomycin/zosyn for abdominal wall skin/soft tissue infection. CT A/P without e/o abscess/loculated fluid collection. Also found to have R lobal PE with signs of RV strain on TTE. Hospital course c/b 12-second pause requiring transfer to ICU, currently with soft BPs in low 90s. - if febrile, would panculture (BCx, UA/UCx). - continue vancomycin, check trough. Can discontinue zosyn given no e/o G- organisms on UCx or BCx. - trend CRP - discussed with ID attending Dr. Lane. Sharmaine Daniel PGY3, IM resident <Ariana NEWELL,Juan Benavides - Last Filed: 12/20/17 17:01> Consult Consult: Seen, examined, and discussed with Dr Daniel, I agree with her full note 1. Abd wall cellulitis after abdominoplasty, typically gram positive and MRSA in drain, though it's role here not definitely a pathogen; will DC zosyn and follow exam/CRP. Discussed with Dr Ennis
[2017-12-20] MEDS: LORazepam INJ* 2 MG/ML 1 ML VIAL IV PRN (17:08)
[2017-12-20] MEDS ORDERED: diPHENhydraMINE PO* 25 MG PO PRN (17:41)
[2017-12-20] MEDS ORDERED: Magnesium Sulfate 1 GM IV* 1 GM/100 ML BAG IV ONE (17:43)
[2017-12-20] MEDS ORDERED: Ondansetron SYRINGE* 4 MG/2 ML SYRINGE (from 40mg/20ml vial) IV PRN (18:00)
[2017-12-20] MEDS: Citalopram TAB* 10 MG PO SCH (18:27)
[2017-12-20] MEDS ORDERED: Vancomycin per Pharmacy* NOTE FOLLOW UP PRN (22:42)
[2017-12-20] MEDS: Vancomycin(*) 1,250 MG in NS 0.9% 250 ML* 250 ML IVPB SCH (23:37)
[2017-12-21 06:14] LABS: Hematocrit 24 % (35-47); Hemoglobin 7.9 g/dl (12.0-16.0); Mean Corpuscular HGB Conc 33 g/dl (31-36); Mean Corpuscular Hemoglobin 30 pg (27-31); Mean Corpuscular Volume 90 fL (80-97); Mean Platelet Volume 9.2 um3 (7.4-10.4); Platelet Count 259 10^3/ul (150-450); Red Blood Count 2.67 10^6/ul (4.0-5.4); Red Cell Distribution Width 14 % (10.5-15); White Blood Count 7.4 10^3/ul (3.5-10.8)
[2017-12-21 06:41] LABS: EGFR Non-African American 115.1 (>60)
--- NOTE | 2017-12-21 09:18 | CONSULT ---
<Sharmaine Daniel - Last Filed: 12/21/17 13:14> Consult Consult: Infectious disease- follow up note 12/21/2017 Briefly, 47 yo woman pmhx anxiety/ADHD, obesity s/p abdominoplasty, panniculectomy and b/l breast reduction on 12/06/17 p/w fever/chills with abd fluid cx growing MRSA though clear BCx, concerning for abdominal wall skin/soft tissue infection, previously on vanc/zosyn. Discontinued zosyn yesterday given negative BCx. Vanc trough level was 9, so vanc dose was increased from 1g q8h to 1250mg q8h yesterday. S: Overnight, had allergic reaction to IV ativan and zofran, was given IV benadryl with resolution of sx. This morning, feels well, having regular BMs. Whole body feels more swollen. Selected Entries 12/21/17 12/21/17 07:00 08:00 Temperature 37.1 C Heart Rate 71 Respiratory 20 Rate Blood Pressure 97/51 (mmHg) O2 Sat by Pulse 95 Oximetry Gen- fatigued appearing middle aged woman, no acute distress. HEENT- EOMI, MMM. CV- s1 s2, RRR, no m/r/g Pulm- CTA b/l anteriorly, unable to sit up due to abdominal discomfort. Abd- soft, [address] draining serous yellow fluid with fibrinous materials. large incision with minimal erythema steristrips across the lower abdomen, no fluctuance or purulence. Extrem- no LE edema, no calf tenderness Neuro- AOx3, non focal. Labs: WBC 11.2 --> 9.8 --> 9.4 --> 9.5 --> 7.9 Hgb 9.5 --> 9.1 --> 8.6 --> 7.9 --> 7.9 CRP 394 UA- 3+LE, wbc 3+, no bacteria UCx- negative BCx 12/19- NGTD Fluid Cx from ELMIRA drains b/l 12/20- MRSA A/P: 47 yo woman pmhx anxiety/ADHD, obesity s/p extensive plastic surgery including abdominoplasty, liposuction and b/l breast reduction on 12/06/17 presented with fever/chills, found to meet SIRS criteria on admission. Abdominal fluid Cx growing MRSA, BCx no growth to date, currently on vancomycin for abdominal wall skin/soft tissue infection. CT A/P without e/o abscess/loculated fluid collection. Also found to have R lobal PE with signs of RV strain on TTE. Hospital course c/b 12-second pause requiring transfer to ICU, currently with soft BPs in low 90s. - if febrile, would panculture (BCx, UA/UCx). - consider targeting a lower vanc trough goal given no systemic MRSA infection, only growing in abdominal fluid from ELMIRA drain. - once BCx finalizes and remains negative, consider switching to PO antibiotics for MRSA soft tissue infection- ie doxy, bactrim, etc. - trend CRP - discussed with ID attending Dr. Lane, final recs pending. Sharmaine Daniel PGY3, [facility] IM resident <Ariana NEWELL,Juan Benavides - Last Filed: 12/22/17 08:42> Consult Consult: Seen, examined, and discussed with Dr Daniel, I agree with her full note above.
[2017-12-21] MEDS: Vancomycin(*) 1,250 MG in NS 0.9% 250 ML* 250 ML IVPB SCH ×2 (10:35→16:17)
[2017-12-21] MEDS: Docusate CAP* 100 MG PO SCH ×2 (10:35→21:23)
[2017-12-21] MEDS: oxyCODONE/Acetamin 5/325 MG* TAB PO PRN ×2 (10:35→16:58)
--- NOTE | 2017-12-21 12:19 | PN ---
Subjective Date of Service: 12/21/17 Interval History: Pt feels "much better". Still c/o post op discomfort in upper epigastrium Objective Active Medications: Acetaminophen (Tylenol Tab*) 650 mg PO Q4H PRN PRN Reason: FEVER/PAIN Last Admin: 12/20/17 14:24 Dose: 650 mg Al Hydrox/Mg Hydrox/Simethicone (Maalox Plus*) 30 ml PO Q2H PRN PRN Reason: HEARTBURN Last Admin: 12/20/17 15:04 Dose: 30 ml Citalopram Hydrobromide (Celexa Tab*) 20 mg PO QPM VASILE Last Admin: 12/20/17 18:27 Dose: 20 mg Diphenhydramine HCl (Benadryl Po*) 25 mg PO Q6H PRN PRN Reason: Allergy Symptoms Last Admin: 12/20/17 17:54 Dose: 25 mg Docusate Sodium (Colace Cap*) 100 mg PO BID [facility] Last Admin: 12/21/17 10:35 Dose: Not Given Heparin Sodium (Porcine) (Heparin Vial(*)) 0 units IV .BOLUS PRN PRN Reason: BOLUS PER HEPARIN PROTOCOL Last Admin: 12/20/17 14:24 Dose: 2,400 units Heparin Sodium/Dextrose (Heparin Drip 25,000 Units(*)) 25,000 units in 500 mls @ 0 mls/hr IV PER RATE VASILE; Per Protocol PRN Reason: Protocol Last Admin: 12/20/17 22:28 Dose: 37 mls/hr Vancomycin HCl 1,250 mg/ (Sodium Chloride) 250 mls @ 166.667 mls/hr IVPB Q8H VASILE Last Admin: 12/21/17 10:35 Dose: 166.667 mls/hr Ibuprofen (Motrin Tab*) 600 mg PO Q8H PRN PRN Reason: PAIN Lorazepam (Ativan Inj*) 0.5 mg IV Q6H PRN PRN Reason: ANXIETY Last Admin: 12/20/17 17:08 Dose: 0.5 mg Morphine Sulfate (Morphine Vial*) 1 mg IV Q4H PRN PRN Reason: PAIN Last Admin: 12/19/17 20:45 Dose: 1 mg Ondansetron HCl (Zofran Syringe*) 4 mg IV Q6H PRN PRN Reason: NAUSEA Last Admin: 12/20/17 17:14 Dose: 4 mg Oxycodone/Acetaminophen (Percocet 5/325 Tab*) 1 tab PO Q4HR PRN PRN Reason: PAIN Last Admin: 12/21/17 10:35 Dose: 1 tab Pharmacy Consult (Vancomycin Per Pharmacy*) 1 note FOLLOW UP . PRN PRN Reason: PER PROTOCOL Pharmacy Profile Note (Vancomycin Trough Check) 1 note FOLLOW UP 0800 ONE Stop: 12/22/17 08:01 Polyethylene Glycol/Electrolytes (Miralax*) 17 gm PO DAILY PRN PRN Reason: CONSTIPATION Vital Signs - 8 hr 12/21/17 12/21/17 12/21/17 05:00 05:48 06:00 Temperature 98.9 F Pulse Rate 69 75 Respiratory 15 21 Rate Blood Pressure 104/53 94/57 (mmHg) O2 Sat by Pulse 94 95 Oximetry 12/21/17 12/21/17 12/21/17 07:00 08:00 09:00 Temperature 98.7 F Pulse Rate 70 68 73 Respiratory 20 19 15 Rate Blood Pressure 97/51 101/54 (mmHg) O2 Sat by Pulse 95 94 96 Oximetry 12/21/17 12/21/17 12/21/17 10:00 10:01 10:35 Temperature Pulse Rate 70 72 Respiratory 18 18 Rate Blood Pressure 114/53 (mmHg) O2 Sat by Pulse 95 96 Oximetry 12/21/17 12/21/17 12/21/17 11:00 11:01 11:41 Temperature 98.8 F Pulse Rate 74 73 Respiratory 22 18 Rate Blood Pressure 101/59 (mmHg) O2 Sat by Pulse 95 95 Oximetry Oxygen Devices in Use Now: Nasal Cannula Appearance: 47 yo f in nAD, AAOx3 Eyes: No Scleral Icterus, PERRLA Ears/Nose/Mouth/Throat: NL Teeth, Lips, Gums, Mucous Membranes Moist Neck: NL Appearance and Movements; NL JVP, Trachea Midline Respiratory: Symmetrical Chest Expansion and Respiratory Effort, Clear to Auscultation Cardiovascular: NL Sounds; No Murmurs; No JVD, RRR Abdominal: - - tender to palpation of the subcu tissue in epigastrum with area of induration noted, erythmea on skin resolving Lymphatic: No Cervical Adenopathy, No Axillary Adenopathy Extremities: No Edema, No Clubbing, Cyanosis Skin: No Nodules or Sclerosis, - - post op incisions with no dehiscence, ELMIRA drains draining scant serous fluid. Neurological: Alert and Oriented x 3, NL Muscle Strength and Tone Result Diagrams: 12/21/17 05:40 12/21/17 05:40 Additional Lab and Data: Lab Results 12/18/17 12/18/17 12/18/17 Range/Units 01:00 23:51 23:51 WBC 11.2 H (3.5-10.8) 10^3/ul RBC 3.20 L (4.0-5.4) 10^6/ul Hgb 9.5 L (12.0-16.0) g/dl Hct 29 L (35-47) % MCV 89 (80-97) fL MCH 30 (27-31) pg MCHC 33 (31-36) g/dl RDW 13 (10.5-15) % Plt Count 265 (150-450) 10^3/ul MPV 9.2 (7.4-10.4) um3 Neut % (Auto) 76.6 (38-83) % Lymph % (Auto) 14.5 L (25-47) % [place] % (Auto) 5.9 (0-7) % Eos % (Auto) 2.3 (0-6) % Baso % (Auto) 0.7 (0-2) % Absolute Neuts (auto) 8.6 H (1.5-7.7) 10^3/ul Absolute Lymphs (auto) 1.6 (1.0-4.8) 10^3/ul Absolute Monos (auto) 0.7 (0-0.8) 10^3/ul Absolute Eos (auto) 0.3 (0-0.6) 10^3/ul Absolute Basos (auto) 0.1 (0-0.2) 10^3/ul Absolute Nucleated RBC 0 10^3/ul Nucleated RBC % 0 Sodium 132 L (139-145) mmol/L Potassium 3.5 (3.5-5.0) mmol/L Chloride 102 (101-111) mmol/L Carbon Dioxide 21 L (22-32) mmol/L Anion Gap 9 (2-11) mmol/L BUN 14 (6-24) mg/dL Creatinine 0.68 (0.51-0.95) mg/dL Est GFR ( Amer) 118.3 (>60) Est GFR (Non-Af Amer) 92.0 (>60) BUN/Creatinine Ratio 20.6 H (8-20) Glucose 134 H (70-100) mg/dL Lactic Acid (0.5-2.0) mmol/L Calcium 8.4 L (8.6-10.3) mg/dL Total Bilirubin 0.50 (0.2-1.0) mg/dL AST 12 L (13-39) U/L ALT 13 (7-52) U/L Alkaline Phosphatase 288 H (34-104) U/L C-Reactive Protein 393.83 H (< 5.00) mg/L Total Protein 6.3 L (6.4-8.9) g/dL Albumin 3.0 L (3.2-5.2) g/dL Globulin 3.3 (2-4) g/dL Albumin/Globulin Ratio 0.9 L (1-3) Urine Color Yellow Urine Appearance Cloudy Urine pH 5.0 (5-9) Ur Specific [place] 1.014 (1.010-1.030) Urine Protein Negative (Negative) Urine Ketones Negative (Negative) Urine Blood Negative (Negative) Urine Nitrate Negative (Negative) Urine Bilirubin Negative (Negative) Urine Urobilinogen Negative (Negative) Ur Leukocyte Esterase 3+ A (Negative) Urine WBC (Auto) 3+(>20/hpf) A (Absent) Urine RBC (Auto) Trace(0-2/hpf) (Absent) Ur Squamous Epith Cells Present A (Absent) Ur Transition Epith Cell Present A (Absent) Urine Bacteria Absent (Absent) Urine Glucose Negative (Negative) 12/18/17 Range/Units 23:51 WBC (3.5-10.8) 10^3/ul RBC (4.0-5.4) 10^6/ul Hgb (12.0-16.0) g/dl Hct (35-47) % MCV (80-97) fL MCH (27-31) pg MCHC (31-36) g/dl RDW (10.5-15) % Plt Count (150-450) 10^3/ul MPV (7.4-10.4) um3 Neut % (Auto) (38-83) % Lymph % (Auto) (25-47) % [place] % (Auto) (0-7) % Eos % (Auto) (0-6) % Baso % (Auto) (0-2) % Absolute Neuts (auto) (1.5-7.7) 10^3/ul Absolute Lymphs (auto) (1.0-4.8) 10^3/ul Absolute Monos (auto) (0-0.8) 10^3/ul Absolute Eos (auto) (0-0.6) 10^3/ul Absolute Basos (auto) (0-0.2) 10^3/ul Absolute Nucleated RBC 10^3/ul Nucleated RBC % Sodium (139-145) mmol/L Potassium (3.5-5.0) mmol/L Chloride (101-111) mmol/L Carbon Dioxide (22-32) mmol/L Anion Gap (2-11) mmol/L BUN (6-24) mg/dL Creatinine (0.51-0.95) mg/dL Est GFR ( Amer) (>60) Est GFR (Non-Af Amer) (>60) BUN/Creatinine Ratio (8-20) Glucose (70-100) mg/dL Lactic Acid 0.8 (0.5-2.0) mmol/L Calcium (8.6-10.3) mg/dL Total Bilirubin (0.2-1.0) mg/dL AST (13-39) U/L ALT (7-52) U/L Alkaline Phosphatase (34-104) U/L C-Reactive Protein (< 5.00) mg/L Total Protein (6.4-8.9) g/dL Albumin (3.2-5.2) g/dL Globulin (2-4) g/dL Albumin/Globulin Ratio (1-3) Urine Color Urine Appearance Urine pH (5-9) Ur Specific [place] (1.010-1.030) Urine Protein (Negative) Urine Ketones (Negative) Urine Blood (Negative) Urine Nitrate (Negative) Urine Bilirubin (Negative) Urine Urobilinogen (Negative) Ur Leukocyte Esterase (Negative) Urine WBC (Auto) (Absent) Urine RBC (Auto) (Absent) Ur Squamous Epith Cells (Absent) Ur Transition Epith Cell (Absent) Urine Bacteria (Absent) Urine Glucose (Negative) Microbiology and Other Data: Microbiology 12/20/17 11:11 Gram Stain - Final Body Fluid - Abdominal Body Fluid Culture - Preliminary Staphylococcus Aureus Skin and Soft Tissue MRSA/MSSA (PCR - Final Mrsa Positive S.aureus Positive 12/20/17 11:11 Gram Stain - Final Body Fluid - Abdominal Body Fluid Culture - Preliminary Staphylococcus Aureus Skin and Soft Tissue MRSA/MSSA (PCR - Final Mrsa Positive S.aureus Positive Assess/Plan/Problems-Billing Assessment: 47 yo F with recent extensive plastic surgery on abd and breasts with sepsis due to cellulitis and PE - Patient Problems (1) Pulmonary embolism Comment: post op plastic surgery. cont heparin gtt Hb down -suspect dilution (due to IVF used for sepsis tx). will check stool guaiac-if neg can be started on oral anticoagulants (2) Sepsis Comment: suspect source is the skin and subcu tissue after liposuction in the abd wall. cont Vanc. Zosyn stopped per ID. Surgery following Drain fluid growing MRSA. Blood Cx neg (3) Anemia Comment: acute on post op suspect dilution stool for guiac pending, no evidence of acute bleeding (4) Syncope Comment: 12 sec pause after N/V possible vaso -vagal Echo shows no major valular abn and good EF. Cont telem (5) DVT prophylaxis Comment: heparin gtt dopplers of b/l LE's negative for DVT Status and Disposition: inpatient
[2017-12-21 13:50] LABS: ABS Basophils 0 10^3/ul (0-0.2); ABS Eosinophils 0.3 10^3/ul (0-0.6); ABS Lymphocytes 1.9 10^3/ul (1.0-4.8); ABS Monocytes 0.4 10^3/ul (0-0.8); ABS Neutrophils 5.1 10^3/ul (1.5-7.7); ABS Nucleated RBC 0 10^3/ul; Eosinophil % 3.5 % (0-6); Hematocrit 25 % (35-47); Hemoglobin 8.3 g/dl (12.0-16.0); Mean Corpuscular HGB Conc 33 g/dl (31-36); Mean Corpuscular Hemoglobin 30 pg (27-31); Mean Corpuscular Volume 91 fL (80-97); Mean Platelet Volume 8.7 um3 (7.4-10.4); Nucleated Red Blood Cells % 0; Platelet Count 302 10^3/ul (150-450); Red Cell Distribution Width 14 % (10.5-15); White Blood Count 7.8 10^3/ul (3.5-10.8)
[2017-12-21] MEDS: Heparin DRIP 25,000 UNITS(*) 25,000 UNITS/500 ML BAG IV SCH (14:02)
[2017-12-21 14:10] LABS: EGFR Non-African American 108.3 (>60)
[2017-12-21] MEDS: Citalopram TAB* 10 MG PO SCH (16:58)
[2017-12-21] MEDS ORDERED: Ondansetron 40 MG VIAL* 2 MG/ML 20 ML VIAL IV PRN (18:00)
[2017-12-21] MEDS ORDERED: PROCHLORPERAZINE INJ 5 MG/ML 2 ML VIAL IV PRN (18:11)
[2017-12-21] MEDS: Pantoprazole IV* 80 MG in NS 0.9% 250 ML* 250 ML IVPB SCH (21:21)
[2017-12-22] MEDS: Vancomycin(*) 1,250 MG in NS 0.9% 250 ML* 250 ML IVPB SCH ×2 (00:34→09:55)
[2017-12-22] MEDS: oxyCODONE/Acetamin 5/325 MG* TAB PO PRN ×4 (00:34→22:19)
--- NOTE | 2017-12-22 01:25 | CONS ---
GASTROENTEROLOGY CONSULTATION DATE: 12/21/17 CONSULTING PHYSICIANS: Audrey Ennis; Keila Ortega REASON FOR CONSULTATION: Low hemoglobin and heme-positive stool in a woman diagnosed a couple of days ago with pulmonary embolism and now on a heparin drip. HISTORY OF PRESENT ILLNESS: This 47-year-old woman 3-1/2 weeks ago had a multipart plastic surgical procedure in [place], [place] including bilateral breast reduction, abdominoplasty, and liposuction. She did okay initially, postop taking some cephalexin. She went back to work on 12/15/17 and was feeling fine. The next day, however, she developed a fever. She was admitted in the impression of sepsis. A CT top to bottom showed no independent source of infection other than the surgical sites, but she had pulmonary emboli. She has been placed on heparin. She states she has never had any thromboembolic phenomena in the past. She has never had a clotting or vascular issues. She has not had chronic gastrointestinal problems and denies using antacids, OTC agents, fiber supplements, or laxatives. She does take ibuprofen 800 mg about 3 days a week referring that she used in general whenever she needs something (for headache). She has been following a liquid diet called Optifast, which her says is under medical supervision. PAST MEDICAL HISTORY: 1. Morbid obesity - she did see Dr. Bridges in consult in 2012. 2. History of recent abdominoplasty and bilateral breast reduction. 3. Anxiety. 4. Lumbar back surgery, 2012. 5. Remote tonsillectomy. 6. Right knee surgery in 1987. OUTPATIENT MEDICATION: Celexa 20 mg, Estrogen type uncertain, Percocet q4 hours p.r.n Ibuprofen 800mg 3x a week or as needed ALLERGIES: CODEINE causes nausea. FAMILY HISTORY: She states there is no family history of gastrointestinal problems. REVIEW OF SYSTEMS: No history of TB, hemoptysis, lung problems, [place], palpitations, syncope, hepatitis, jaundice, chronic rectal bleeding, skin rash. She says she has never been treated for a peptic disorder by her primary or put on iron. She donated blood a few times over 15 yrs ago. PHYSICAL EXAM: The history was assisted by her and sister. She was uncomfortable stating she was having a dramatic reaction to her first solid meal in 4 days which was lasagna. They felt it must have been bad. It is observed that the patient in the adjoining room having the same meal, had had no particular trouble. HEENT exam shows no icterus. She is rather flushed and somewhat emotional. He has no adenopathy. Her lungs are clear. Heart sounds regular. The abdomen has a binder on. Peeled away reveals a low transabdominal scar with a drain on the left margin. There is erythema for 4 to 5 cm above the scar appearing suspicious for margin of infection. Legs show symmetry and no erythema or tenderness. Neurologic shows she is alert and oriented, but a detailed exam was not indicated and the patient's energy level did not permit it. IMPRESSION AND PLAN: This 47-year-old woman is having a very difficult course with sepsis and a PE now 3-1/2 weeks after an extensive plastic surgical procedure with heme-positive stool. Most important source to consider would be a peptic process in the upper gut related to NSAID use and plans have been made to start a Protonix drip, and I agree with that. There is no indication right now for endoscopy. [id number]/[facility] #: [id number] [facility] HOSPITALTracee
[2017-12-22] MEDS ORDERED: Vancomycin Trough Check NOTE FOLLOW UP ONE (08:00)
[2017-12-22 08:29] LABS: ABS Basophils 0 10^3/ul (0-0.2); ABS Eosinophils 0.3 10^3/ul (0-0.6); ABS Monocytes 0.4 10^3/ul (0-0.8); ABS Neutrophils 3.6 10^3/ul (1.5-7.7); ABS Nucleated RBC 0 10^3/ul; Eosinophil % 4.5 % (0-6); Hematocrit 23 % (35-47); Hemoglobin 7.8 g/dl (12.0-16.0); Lymphocyte % 31.5 % (25-47); Mean Corpuscular HGB Conc 33 g/dl (31-36); Mean Corpuscular Hemoglobin 30 pg (27-31); Mean Corpuscular Volume 90 fL (80-97); Mean Platelet Volume 8.6 um3 (7.4-10.4); Nucleated Red Blood Cells % 0; Platelet Count 275 10^3/ul (150-450); Red Blood Count 2.62 10^6/ul (4.0-5.4); Red Cell Distribution Width 14 % (10.5-15); White Blood Count 6.4 10^3/ul (3.5-10.8)
[2017-12-22 08:56] LABS: EGFR Non-African American 108.3 (>60)
[2017-12-22] MEDS: Docusate CAP* 100 MG PO SCH ×2 (08:59→19:53)
--- NOTE | 2017-12-22 09:57 | PN ---
Progress Note - Progress Note Date of Service: 12/22/17 SOAP: Subjective: CC: cellulitis HPI: 47 year old woman with abdominal wall cellulitis after abdominoplasty; fever and diarrhea resolved. No abd pain and decreased appetite. No rash. Objective: Vital Signs Temp 36.3 C 12/22/17 08:18 Pulse 67 12/22/17 08:10 Resp 18 12/22/17 09:35 BP 113/61 12/22/17 08:10 Pulse Ox 100 12/22/17 08:10 Intake & Output 12/21/17 12/22/17 12/22/17 18:59 06:59 18:59 Intake Total 990 1847 Output Total 390 120 Balance 600 1727 Intake: IV Fluids 52 566 ABX - VANCOMYCIN 52 531 NS (0.9%) 35 IVPB 277 ABX - VANCOMYCIN 277 Medicated IV 80 Protonix 80 Heparin 81 321 Oral 580 880 Output: ELMIRA #1 20 55 ELMIRA #2 20 65 Urine 350 Other: Estimated Void Medium # Bowel Movements 1 Estimated Stool Amount Small # Voids 1 Gen:awake, no distress HEENT: no thrush Heart:RRR no murmur Lungs:CTA BL Abd:+BS NTND, incision intact, diffuse edema and mild warmth Skin: no rash Laboratory Results - last 24 hr 12/21/17 12/21/17 12/22/17 13:34 13:34 03:23 WBC 7.8 RBC 2.80 L Hgb 8.3 L Hct 25 L MCV 91 MCH 30 MCHC 33 RDW 14 Plt Count 302 MPV 8.7 Neut % (Auto) 65.9 Lymph % (Auto) 25.0 [place] % (Auto) 5.1 Eos % (Auto) 3.5 Baso % (Auto) 0.5 Absolute Neuts (auto) 5.1 Absolute Lymphs (auto) 1.9 Absolute Monos (auto) 0.4 Absolute Eos (auto) 0.3 Absolute Basos (auto) 0 Absolute Nucleated RBC 0 Nucleated RBC % 0 APTT 63.9 H Sodium Potassium Chloride Carbon Dioxide Anion Gap BUN 8 Creatinine 0.59 Est GFR ( Amer) 139.3 Est GFR (Non-Af Amer) 108.3 BUN/Creatinine Ratio Glucose Calcium C-Reactive Protein Vancomycin Trough 12/22/17 12/22/17 12/22/17 08:04 08:04 08:04 WBC 6.4 RBC 2.62 L Hgb 7.8 L Hct 23 L MCV 90 MCH 30 MCHC 33 RDW 14 Plt Count 275 MPV 8.6 Neut % (Auto) 56.6 Lymph % (Auto) 31.5 [place] % (Auto) 6.8 Eos % (Auto) 4.5 Baso % (Auto) 0.6 Absolute Neuts (auto) 3.6 Absolute Lymphs (auto) 2.0 Absolute Monos (auto) 0.4 Absolute Eos (auto) 0.3 Absolute Basos (auto) 0 Absolute Nucleated RBC 0 Nucleated RBC % 0 APTT Sodium 138 L Potassium 3.8 Chloride 109 Carbon Dioxide 23 Anion Gap 6 BUN 8 Creatinine 0.59 Est GFR ( Amer) 139.3 Est GFR (Non-Af Amer) 108.3 BUN/Creatinine Ratio 13.6 Glucose 102 H Calcium 7.5 L C-Reactive Protein 112.60 H Vancomycin Trough 14.9 Assessment: 1. abdominoplasty SSI, cellulitis 2. elevated CRP due to #1, improving, fever resolved 3. obesity 4. Pulmonary embolism Plan: 1. continue vancomycin goal tr 10-15 eventually can change to PO antibiotics
--- NOTE | 2017-12-22 11:26 | PN ---
Subjective Date of Service: 12/22/17 Interval History: Pt feels well. C/o hot flashes . She was taken of her estrogen at admission and was on it for menopausal symptoms Denies N/V. Left groin drain is not keeping seal and it appears to have been partially pulled out Objective Active Medications: Acetaminophen (Tylenol Tab*) 650 mg PO Q4H PRN PRN Reason: FEVER/PAIN Last Admin: 12/20/17 14:24 Dose: 650 mg Al Hydrox/Mg Hydrox/Simethicone (Maalox Plus*) 30 ml PO Q2H PRN PRN Reason: HEARTBURN Last Admin: 12/20/17 15:04 Dose: 30 ml Citalopram Hydrobromide (Celexa Tab*) 20 mg PO QPM [facility]AS[facility] Last Admin: 12/21/17 16:58 Dose: 20 mg Diphenhydramine HCl (Benadryl Po*) 25 mg PO Q6H PRN PRN Reason: Allergy Symptoms Last Admin: 12/20/17 17:54 Dose: 25 mg Docusate Sodium (Colace Cap*) 100 mg PO BID [facility]AS[facility] Last Admin: 12/22/17 08:59 Dose: Not Given Heparin Sodium (Porcine) (Heparin Vial(*)) 0 units IV .BOLUS PRN PRN Reason: BOLUS PER HEPARIN PROTOCOL Last Admin: 12/20/17 14:24 Dose: 2,400 units Heparin Sodium/Dextrose (Heparin Drip 25,000 Units(*)) 25,000 units in 500 mls @ 0 mls/hr IV PER RATE VASILE; Per Protocol PRN Reason: Protocol Last Admin: 12/21/17 14:02 Dose: 37 mls/hr Vancomycin HCl 1,250 mg/ (Sodium Chloride) 250 mls @ 166.667 mls/hr IVPB Q8H VASILE Last Admin: 12/22/17 09:55 Dose: 166.667 mls/hr Pantoprazole Sodium 80 mg/ (Sodium Chloride) 250 mls @ 25 mls/hr IVPB Q10H [facility]ASILE Last Admin: 12/21/17 21:21 Dose: 25 mls/hr Lorazepam (Ativan Inj*) 0.5 mg IV Q6H PRN PRN Reason: ANXIETY Last Admin: 12/20/17 17:08 Dose: 0.5 mg Morphine Sulfate (Morphine Vial*) 1 mg IV Q4H PRN PRN Reason: PAIN Last Admin: 12/19/17 20:45 Dose: 1 mg Ondansetron HCl (Zofran 40 Mg Vial*) 4 mg IV Q6H PRN PRN Reason: NAUSEA Oxycodone/Acetaminophen (Percocet 5/325 Tab*) 1 tab PO Q4HR PRN PRN Reason: PAIN Last Admin: 12/22/17 09:35 Dose: 1 tab Pharmacy Consult (Vancomycin Per Pharmacy*) 1 note FOLLOW UP . PRN PRN Reason: PER PROTOCOL Polyethylene Glycol/Electrolytes (Miralax*) 17 gm PO DAILY PRN PRN Reason: CONSTIPATION Prochlorperazine Edisylate (Compazine Inj*) 5 mg IV Q6H PRN PRN Reason: NAUSEA/VOMITING Last Admin: 12/21/17 18:33 Dose: 5 mg Vital Signs - 8 hr 12/22/17 12/22/17 12/22/17 03:50 03:51 08:01 Temperature 98.1 F Pulse Rate 67 Respiratory 16 18 18 Rate Blood Pressure 111/57 (mmHg) O2 Sat by Pulse 96 Oximetry 12/22/17 12/22/17 12/22/17 08:10 08:18 09:35 Temperature 97.3 F Pulse Rate 67 Respiratory 20 18 Rate Blood Pressure 113/61 (mmHg) O2 Sat by Pulse 100 Oximetry 12/22/17 10:40 Temperature Pulse Rate 66 Respiratory 20 Rate Blood Pressure 110/57 (mmHg) O2 Sat by Pulse 98 Oximetry Oxygen Devices in Use Now: None Appearance: 47 yo F in NAD, AAOx3 Eyes: No Scleral Icterus, PERRLA Ears/Nose/Mouth/Throat: NL Teeth, Lips, Gums, Mucous Membranes Moist Neck: NL Appearance and Movements; NL JVP, Trachea Midline Respiratory: Symmetrical Chest Expansion and Respiratory Effort, - - fine bibasiliar crackles Cardiovascular: NL Sounds; No Murmurs; No JVD, RRR Abdominal: No Hepatosplenomegaly, - - mild tenderness in upper abd, no renound, no guarding Lymphatic: No Cervical Adenopathy Extremities: No Edema, No Clubbing, Cyanosis Skin: No Nodules or Sclerosis, - - incisions on breasts are intact. erythema in supraumbilical area is rseolved. Left ELMIRA drain appears partially pulled put. R ELM[place]A drain with serous fluid in it. b/l inguinal and suprapubic incisons sutured with no evidence of dehiscence Neurological: Alert and Oriented x 3, NL Muscle Strength and Tone Result Diagrams: 12/22/17 08:04 12/22/17 08:04 Additional Lab and Data: Lab Results 12/18/17 12/18/17 12/18/17 Range/Units 01:00 23:51 23:51 WBC 11.2 H (3.5-10.8) 10^3/ul RBC 3.20 L (4.0-5.4) 10^6/ul Hgb 9.5 L (12.0-16.0) g/dl Hct 29 L (35-47) % MCV 89 (80-97) fL MCH 30 (27-31) pg MCHC 33 (31-36) g/dl RDW 13 (10.5-15) % Plt Count 265 (150-450) 10^3/ul MPV 9.2 (7.4-10.4) um3 Neut % (Auto) 76.6 (38-83) % Lymph % (Auto) 14.5 L (25-47) % [place] % (Auto) 5.9 (0-7) % Eos % (Auto) 2.3 (0-6) % Baso % (Auto) 0.7 (0-2) % Absolute Neuts (auto) 8.6 H (1.5-7.7) 10^3/ul Absolute Lymphs (auto) 1.6 (1.0-4.8) 10^3/ul Absolute Monos (auto) 0.7 (0-0.8) 10^3/ul Absolute Eos (auto) 0.3 (0-0.6) 10^3/ul Absolute Basos (auto) 0.1 (0-0.2) 10^3/ul Absolute Nucleated RBC 0 10^3/ul Nucleated RBC % 0 Sodium 132 L (139-145) mmol/L Potassium 3.5 (3.5-5.0) mmol/L Chloride 102 (101-111) mmol/L Carbon Dioxide 21 L (22-32) mmol/L Anion Gap 9 (2-11) mmol/L BUN 14 (6-24) mg/dL Creatinine 0.68 (0.51-0.95) mg/dL Est GFR ( Amer) 118.3 (>60) Est GFR (Non-Af Amer) 92.0 (>60) BUN/Creatinine Ratio 20.6 H (8-20) Glucose 134 H (70-100) mg/dL Lactic Acid (0.5-2.0) mmol/L Calcium 8.4 L (8.6-10.3) mg/dL Total Bilirubin 0.50 (0.2-1.0) mg/dL AST 12 L (13-39) U/L ALT 13 (7-52) U/L Alkaline Phosphatase 288 H (34-104) U/L C-Reactive Protein 393.83 H (< 5.00) mg/L Total Protein 6.3 L (6.4-8.9) g/dL Albumin 3.0 L (3.2-5.2) g/dL Globulin 3.3 (2-4) g/dL Albumin/Globulin Ratio 0.9 L (1-3) Urine Color Yellow Urine Appearance Cloudy Urine pH 5.0 (5-9) Ur Specific [place] 1.014 (1.010-1.030) Urine Protein Negative (Negative) Urine Ketones Negative (Negative) Urine Blood Negative (Negative) Urine Nitrate Negative (Negative) Urine Bilirubin Negative (Negative) Urine Urobilinogen Negative (Negative) Ur Leukocyte Esterase 3+ A (Negative) Urine WBC (Auto) 3+(>20/hpf) A (Absent) Urine RBC (Auto) Trace(0-2/hpf) (Absent) Ur Squamous Epith Cells Present A (Absent) Ur Transition Epith Cell Present A (Absent) Urine Bacteria Absent (Absent) Urine Glucose Negative (Negative) 12/18/17 Range/Units 23:51 WBC (3.5-10.8) 10^3/ul RBC (4.0-5.4) 10^6/ul Hgb (12.0-16.0) g/dl Hct (35-47) % MCV (80-97) fL MCH (27-31) pg MCHC (31-36) g/dl RDW (10.5-15) % Plt Count (150-450) 10^3/ul MPV (7.4-10.4) um3 Neut % (Auto) (38-83) % Lymph % (Auto) (25-47) % [place] % (Auto) (0-7) % Eos % (Auto) (0-6) % Baso % (Auto) (0-2) % Absolute Neuts (auto) (1.5-7.7) 10^3/ul Absolute Lymphs (auto) (1.0-4.8) 10^3/ul Absolute Monos (auto) (0-0.8) 10^3/ul Absolute Eos (auto) (0-0.6) 10^3/ul Absolute Basos (auto) (0-0.2) 10^3/ul Absolute Nucleated RBC 10^3/ul Nucleated RBC % Sodium (139-145) mmol/L Potassium (3.5-5.0) mmol/L Chloride (101-111) mmol/L Carbon Dioxide (22-32) mmol/L Anion Gap (2-11) mmol/L BUN (6-24) mg/dL Creatinine (0.51-0.95) mg/dL Est GFR ( Amer) (>60) Est GFR (Non-Af Amer) (>60) BUN/Creatinine Ratio (8-20) Glucose (70-100) mg/dL Lactic Acid 0.8 (0.5-2.0) mmol/L Calcium (8.6-10.3) mg/dL Total Bilirubin (0.2-1.0) mg/dL AST (13-39) U/L ALT (7-52) U/L Alkaline Phosphatase (34-104) U/L C-Reactive Protein (< 5.00) mg/L Total Protein (6.4-8.9) g/dL Albumin (3.2-5.2) g/dL Globulin (2-4) g/dL Albumin/Globulin Ratio (1-3) Urine Color Urine Appearance Urine pH (5-9) Ur Specific [place] (1.010-1.030) Urine Protein (Negative) Urine Ketones (Negative) Urine Blood (Negative) Urine Nitrate (Negative) Urine Bilirubin (Negative) Urine Urobilinogen (Negative) Ur Leukocyte Esterase (Negative) Urine WBC (Auto) (Absent) Urine RBC (Auto) (Absent) Ur Squamous Epith Cells (Absent) Ur Transition Epith Cell (Absent) Urine Bacteria (Absent) Urine Glucose (Negative) Microbiology and Other Data: Microbiology 12/20/17 11:11 Gram Stain - Final Body Fluid - Abdominal Body Fluid Culture - Preliminary Staphylococcus Aureus Skin and Soft Tissue MRSA/MSSA (PCR - Final Mrsa Positive S.aureus Positive 12/20/17 11:11 Gram Stain - Final Body Fluid - Abdominal Body Fluid Culture - Preliminary Staphylococcus Aureus Skin and Soft Tissue MRSA/MSSA (PCR - Final Mrsa Positive S.aureus Positive Assess/Plan/Problems-Billing Assessment: 47 yo F with recent extensive plastic surgery on abd and breasts with sepsis due to cellulitis and PE - Patient Problems (1) Pulmonary embolism Comment: post op plastic surgery. cont heparin gtt till observed x another 24 H at least , with stable Hb. Pt was noted to have heme+ stool on 12/21/17 (2) Sepsis Comment: suspect source is the skin and subcu tissue after liposuction in the abd wall. cont Vanc. Zosyn stopped per ID. Surgery following Drain fluid growing MRSA. Blood Cx neg left ELMIRA drain partially pulled out-asked DR. Francois to follow (3) Anemia Comment: acute on post op, but stool Heme + Pt is noted to have acute GI bleed, but no melena or BRBPR noted. Appreciate Dr. Kirkpatrick's consult. GI will follow. For now the plan is to cont Protoninx gtt x 24H (started on 12/21/17), then can be switched to prilosec BID Hb relatively stable, cont H&H Q8 for now OK to cont heparin ngtt. Another stool guaiac ordered (4) Syncope Comment: 12 sec pause after N/V possible vaso -vagal on 12/20/17 Echo shows no major valvular abn and good EF. Cont telem (5) DVT prophylaxis Comment: heparin gtt dopplers of b/l LE's negative for DVT Status and Disposition: inpatient
[2017-12-22] MEDS: Pantoprazole IV* 80 MG in NS 0.9% 250 ML* 250 ML IVPB SCH ×2 (11:47→13:27)
[2017-12-22] MEDS: LORazepam INJ* 2 MG/ML 1 ML VIAL IV PRN (11:50)
[2017-12-22] MEDS ORDERED: Vancomycin(*) 1,000 MG in NS 0.9% 250 ML* 250 ML IVPB SCH (12:03)
[2017-12-22 15:27] LABS: Hematocrit 24 % (35-47); Hemoglobin 7.7 g/dl (12.0-16.0)
[2017-12-22] MEDS: Vancomycin(*) 1,000 MG in NS 0.9% 250 ML* 250 ML IVPB SCH (16:12)
[2017-12-22] MEDS: Citalopram TAB* 10 MG PO SCH (18:10)
[2017-12-23] MEDS: Vancomycin(*) 1,000 MG in NS 0.9% 250 ML* 250 ML IVPB SCH ×3 (00:07→15:46)
[2017-12-23] MEDS: Pantoprazole IV* 80 MG in NS 0.9% 250 ML* 250 ML IVPB SCH ×2 (00:21→11:19)
[2017-12-23 00:49] LABS: Hematocrit 23 % (35-47); Hemoglobin 7.8 g/dl (12.0-16.0)
[2017-12-23 06:16] LABS: ABS Basophils 0.1 10^3/ul (0-0.2); ABS Eosinophils 0.3 10^3/ul (0-0.6); ABS Lymphocytes 2.2 10^3/ul (1.0-4.8); ABS Monocytes 0.4 10^3/ul (0-0.8); ABS Neutrophils 3.4 10^3/ul (1.5-7.7); ABS Nucleated RBC 0 10^3/ul; Eosinophil % 4.4 % (0-6); Hematocrit 23 % (35-47); Hemoglobin 7.8 g/dl (12.0-16.0); Lymphocyte % 34.3 % (25-47); Mean Corpuscular HGB Conc 34 g/dl (31-36); Mean Corpuscular Hemoglobin 30 pg (27-31); Mean Corpuscular Volume 90 fL (80-97); Mean Platelet Volume 8.6 um3 (7.4-10.4); Nucleated Red Blood Cells % 0.1; Platelet Count 310 10^3/ul (150-450); Red Blood Count 2.59 10^6/ul (4.0-5.4); Red Cell Distribution Width 14 % (10.5-15); White Blood Count 6.3 10^3/ul (3.5-10.8)
[2017-12-23] MEDS: Docusate CAP* 100 MG PO SCH ×2 (07:37→20:52)
--- NOTE | 2017-12-23 08:54 | PN ---
Subjective Date of Service: 12/23/17 Interval History: Pt is feeling ok. She notes that she is becoming more and more swollen. Her goal is to get up and moving more today. She denies any SOB. She has mild tenderness of the abdomen. Her biggest concern is that there is leakage from the drain in the LLQ. Objective Active Medications: Acetaminophen (Tylenol Tab*) 650 mg PO Q4H PRN PRN Reason: FEVER/PAIN Last Admin: 12/20/17 14:24 Dose: 650 mg Al Hydrox/Mg Hydrox/Simethicone (Maalox Plus*) 30 ml PO Q2H PRN PRN Reason: HEARTBURN Last Admin: 12/20/17 15:04 Dose: 30 ml Citalopram Hydrobromide (Celexa Tab*) 20 mg PO QPM VASILE Last Admin: 12/22/17 18:10 Dose: 20 mg Diphenhydramine HCl (Benadryl Po*) 25 mg PO Q6H PRN PRN Reason: Allergy Symptoms Last Admin: 12/20/17 17:54 Dose: 25 mg Docusate Sodium (Colace Cap*) 100 mg PO BID [facility] Last Admin: 12/23/17 07:37 Dose: Not Given Heparin Sodium (Porcine) (Heparin Vial(*)) 0 units IV .BOLUS PRN PRN Reason: BOLUS PER HEPARIN PROTOCOL Last Admin: 12/20/17 14:24 Dose: 2,400 units Heparin Sodium/Dextrose (Heparin Drip 25,000 Units(*)) 25,000 units in 500 mls @ 0 mls/hr IV PER RATE VASILE; Per Protocol PRN Reason: Protocol Last Admin: 12/21/17 14:02 Dose: 37 mls/hr Pantoprazole Sodium 80 mg/ (Sodium Chloride) 250 mls @ 25 mls/hr IVPB Q10H [facility]ILE Last Admin: 12/23/17 00:21 Dose: 25 mls/hr Vancomycin HCl 1,000 mg/ (Sodium Chloride) 250 mls @ 166.667 mls/hr IVPB 0000, 0800,1600 VASILE Last Admin: 12/23/17 07:34 Dose: 166.667 mls/hr Lorazepam (Ativan Inj*) 0.5 mg IV Q6H PRN PRN Reason: ANXIETY Last Admin: 12/22/17 11:50 Dose: 0.5 mg Morphine Sulfate (Morphine Vial*) 1 mg IV Q4H PRN PRN Reason: PAIN Last Admin: 12/19/17 20:45 Dose: 1 mg Ondansetron HCl (Zofran 40 Mg Vial*) 4 mg IV Q6H PRN PRN Reason: NAUSEA Oxycodone/Acetaminophen (Percocet 5/325 Tab*) 1 tab PO Q4HR PRN PRN Reason: PAIN Last Admin: 12/22/17 22:19 Dose: 1 tab Pharmacy Consult (Vancomycin Per Pharmacy*) 1 note FOLLOW UP . PRN PRN Reason: PER PROTOCOL Pharmacy Profile Note (Vancomycin Trough Check) 1 note FOLLOW UP 0800 ONE Stop: 12/24/17 08:01 Polyethylene Glycol/Electrolytes (Miralax*) 17 gm PO DAILY PRN PRN Reason: CONSTIPATION Prochlorperazine Edisylate (Compazine Inj*) 5 mg IV Q6H PRN PRN Reason: NAUSEA/VOMITING Last Admin: 12/21/17 18:33 Dose: 5 mg Vital Signs - 8 hr 12/23/17 12/23/17 12/23/17 01:22 03:09 07:50 Temperature 97.7 F 98.5 F Pulse Rate 66 65 Respiratory 18 16 20 Rate Blood Pressure 104/64 106/59 (mmHg) O2 Sat by Pulse 97 97 Oximetry 12/23/17 08:00 Temperature Pulse Rate Respiratory 18 Rate Blood Pressure (mmHg) O2 Sat by Pulse Oximetry Oxygen Devices in Use Now: None Appearance: Middle aged obese female sitting up in bed, NAD Eyes: No Scleral Icterus Ears/Nose/Mouth/Throat: Mucous Membranes Moist Respiratory: Symmetrical Chest Expansion and Respiratory Effort, Clear to Auscultation - anteriorly Cardiovascular: NL Sounds; No Murmurs; No JVD, RRR, - - 1+ B/L LE edema Abdominal: - - BS+ soft, diffusely swollen, no erythema Extremities: No Clubbing, Cyanosis Skin: No Nodules or Sclerosis Neurological: Alert and Oriented x 3 Result Diagrams: 12/23/17 05:45 12/23/17 05:45 Additional Lab and Data: Lab Results 12/18/17 12/18/17 12/18/17 Range/Units 01:00 23:51 23:51 WBC 11.2 H (3.5-10.8) 10^3/ul RBC 3.20 L (4.0-5.4) 10^6/ul Hgb 9.5 L (12.0-16.0) g/dl Hct 29 L (35-47) % MCV 89 (80-97) fL MCH 30 (27-31) pg MCHC 33 (31-36) g/dl RDW 13 (10.5-15) % Plt Count 265 (150-450) 10^3/ul MPV 9.2 (7.4-10.4) um3 Neut % (Auto) 76.6 (38-83) % Lymph % (Auto) 14.5 L (25-47) % [place] % (Auto) 5.9 (0-7) % Eos % (Auto) 2.3 (0-6) % Baso % (Auto) 0.7 (0-2) % Absolute Neuts (auto) 8.6 H (1.5-7.7) 10^3/ul Absolute Lymphs (auto) 1.6 (1.0-4.8) 10^3/ul Absolute Monos (auto) 0.7 (0-0.8) 10^3/ul Absolute Eos (auto) 0.3 (0-0.6) 10^3/ul Absolute Basos (auto) 0.1 (0-0.2) 10^3/ul Absolute Nucleated RBC 0 10^3/ul Nucleated RBC % 0 Sodium 132 L (139-145) mmol/L Potassium 3.5 (3.5-5.0) mmol/L Chloride 102 (101-111) mmol/L Carbon Dioxide 21 L (22-32) mmol/L Anion Gap 9 (2-11) mmol/L BUN 14 (6-24) mg/dL Creatinine 0.68 (0.51-0.95) mg/dL Est GFR ( Amer) 118.3 (>60) Est GFR (Non-Af Amer) 92.0 (>60) BUN/Creatinine Ratio 20.6 H (8-20) Glucose 134 H (70-100) mg/dL Lactic Acid (0.5-2.0) mmol/L Calcium 8.4 L (8.6-10.3) mg/dL Total Bilirubin 0.50 (0.2-1.0) mg/dL AST 12 L (13-39) U/L ALT 13 (7-52) U/L Alkaline Phosphatase 288 H (34-104) U/L C-Reactive Protein 393.83 H (< 5.00) mg/L Total Protein 6.3 L (6.4-8.9) g/dL Albumin 3.0 L (3.2-5.2) g/dL Globulin 3.3 (2-4) g/dL Albumin/Globulin Ratio 0.9 L (1-3) Urine Color Yellow Urine Appearance Cloudy Urine pH 5.0 (5-9) Ur Specific [place] 1.014 (1.010-1.030) Urine Protein Negative (Negative) Urine Ketones Negative (Negative) Urine Blood Negative (Negative) Urine Nitrate Negative (Negative) Urine Bilirubin Negative (Negative) Urine Urobilinogen Negative (Negative) Ur Leukocyte Esterase 3+ A (Negative) Urine WBC (Auto) 3+(>20/hpf) A (Absent) Urine RBC (Auto) Trace(0-2/hpf) (Absent) Ur Squamous Epith Cells Present A (Absent) Ur Transition Epith Cell Present A (Absent) Urine Bacteria Absent (Absent) Urine Glucose Negative (Negative) 12/18/17 Range/Units 23:51 WBC (3.5-10.8) 10^3/ul RBC (4.0-5.4) 10^6/ul Hgb (12.0-16.0) g/dl Hct (35-47) % MCV (80-97) fL MCH (27-31) pg MCHC (31-36) g/dl RDW (10.5-15) % Plt Count (150-450) 10^3/ul MPV (7.4-10.4) um3 Neut % (Auto) (38-83) % Lymph % (Auto) (25-47) % [place] % (Auto) (0-7) % Eos % (Auto) (0-6) % Baso % (Auto) (0-2) % Absolute Neuts (auto) (1.5-7.7) 10^3/ul Absolute Lymphs (auto) (1.0-4.8) 10^3/ul Absolute Monos (auto) (0-0.8) 10^3/ul Absolute Eos (auto) (0-0.6) 10^3/ul Absolute Basos (auto) (0-0.2) 10^3/ul Absolute Nucleated RBC 10^3/ul Nucleated RBC % Sodium (139-145) mmol/L Potassium (3.5-5.0) mmol/L Chloride (101-111) mmol/L Carbon Dioxide (22-32) mmol/L Anion Gap (2-11) mmol/L BUN (6-24) mg/dL Creatinine (0.51-0.95) mg/dL Est GFR ( Amer) (>60) Est GFR (Non-Af Amer) (>60) BUN/Creatinine Ratio (8-20) Glucose (70-100) mg/dL Lactic Acid 0.8 (0.5-2.0) mmol/L Calcium (8.6-10.3) mg/dL Total Bilirubin (0.2-1.0) mg/dL AST (13-39) U/L ALT (7-52) U/L Alkaline Phosphatase (34-104) U/L C-Reactive Protein (< 5.00) mg/L Total Protein (6.4-8.9) g/dL Albumin (3.2-5.2) g/dL Globulin (2-4) g/dL Albumin/Globulin Ratio (1-3) Urine Color Urine Appearance Urine pH (5-9) Ur Specific [place] (1.010-1.030) Urine Protein (Negative) Urine Ketones (Negative) Urine Blood (Negative) Urine Nitrate (Negative) Urine Bilirubin (Negative) Urine Urobilinogen (Negative) Ur Leukocyte Esterase (Negative) Urine WBC (Auto) (Absent) Urine RBC (Auto) (Absent) Ur Squamous Epith Cells (Absent) Ur Transition Epith Cell (Absent) Urine Bacteria (Absent) Urine Glucose (Negative) Microbiology and Other Data: Microbiology 12/20/17 11:11 Gram Stain - Final Body Fluid - Abdominal Body Fluid Culture - Preliminary Staphylococcus Aureus Skin and Soft Tissue MRSA/MSSA (PCR - Final Mrsa Positive S.aureus Positive 12/20/17 11:11 Gram Stain - Final Body Fluid - Abdominal Body Fluid Culture - Preliminary Staphylococcus Aureus Skin and Soft Tissue MRSA/MSSA (PCR - Final Mrsa Positive S.aureus Positive Assess/Plan/Problems-Billing Ms Albert is a 47 yo F with recent extensive plastic surgery on abdomen and breasts who presented to the ER with sepsis due to abdominal wall cellulitis and was also found to have a PE. - Patient Problems (1) Pulmonary embolism Current Visit: Yes Status: Acute Code(s): I26.99 - OTHER PULMONARY EMBOLISM WITHOUT ACUTE COR PULMONALE SNOMED Code(s): 20688115 Comment: The patient was found to have a pulmonary embolism on admission. She remains on a heparin drip. COnversion to oral anticoagulant has been held up due to probable slow/intermittent upper GI bleed with drop in H/H. In next 24hr if stable can consider starting coumadin/lovenox vs xarelto (would need to be cautious as no reversal agent yet available). (2) Sepsis Current Visit: Yes Status: Acute Comment: Present on admission secondary to abdominal wall cellulitis. Sepsis now resolved. (3) Cellulitis of abdominal wall Current Visit: Yes Status: Acute Code(s): L03.311 - CELLULITIS OF ABDOMINAL WALL SNOMED Code(s): 09113548 Comment: Improving per pt. No erythema noted. Treating for MRSA. Drain in LLQ has scant purulent drainage noted coming out around the drain tube. Will discuss with Dr. Lane and pt's surgeon. Continue vancomycin for now. (4) Anemia Current Visit: Yes Status: Acute Code(s): D64.9 - ANEMIA, UNSPECIFIED SNOMED Code(s): 809891250 Comment: The patient dropped her H/H from admission likely secondary to slow/ intermittent upper GI bleed. H/H now stable. GI consult obtained and currently no recommendation for EGD. Will change to BID protonix starting this evening. Check H/H this evening. (5) DVT prophylaxis Current Visit: Yes Status: Acute Code(s): PYF4264 - SNOMED Code(s): 087713210 Comment: heparin gtt (6) Full code status Current Visit: Yes Status: Acute Code(s): Z78.9 - OTHER SPECIFIED HEALTH STATUS SNOMED Code(s): 441424772 Status and Disposition: .
[2017-12-23] MEDS: Heparin DRIP 25,000 UNITS(*) 25,000 UNITS/500 ML BAG IV SCH (09:51)
[2017-12-23] MEDS: oxyCODONE/Acetamin 5/325 MG* TAB PO PRN ×2 (09:55→15:45)
[2017-12-23 12:29] LABS: EGFR Non-African American 98.6 (>60)
--- NOTE | 2017-12-23 14:26 | PN ---
Progress Note - Progress Note Date of Service: 12/23/17 SOAP: Infectious disease- follow up note Subjective: [Pt was very upset that she's not getting better. She's worried that no one wants to treat her because she got the surgery in [place] which is 3 hrs away from here. No change in abdominal sx, pain feels about the same. Passing gas, having regular BMs. No f/c, n/v. ] Objective: [ Selected Entries 12/23/17 12/23/17 09:00 11:19 Temperature 36.9 C Pulse Rate 64 Heart Rate 71 Respiratory 16 Rate Blood Pressure 125/68 (mmHg) Gen- middle aged woman, tearful. HEENT- EOMI, MMM. CV- s1 s2, RRR, no m/r/g Pulm- CTA b/l. Abd- soft, [address] draining serous yellow fluid with fibrinous materials. L drain site with scant purulent drainage, large horizontal incision with minimal erythema steristrips across the lower abdomen, no fluctuance or purulence. Extrem- no LE edema, no calf tenderness Neuro- AOx3, non focal. Labs: WBC 11.2 --> 9.8 --> 9.4 --> 9.5 --> 7.9 --> 6.3 Hgb 9.5 --> 9.1 --> 8.6 --> 7.9 --> 7.9 --> 7.8 CRP 394 --> 112 UA- 3+LE, wbc 3+, no bacteria UCx- negative BCx 12/19- NGTD Fluid Cx from ELMIRA drains b/l 12/20- MRSA, finegoldia A/P: 47 yo woman pmhx anxiety/ADHD, obesity s/p extensive plastic surgery including abdominoplasty, liposuction and b/l breast reduction on 12/06/17 presented with fever/chills, found to meet SIRS criteria on admission. Abdominal fluid Cx growing MRSA and finegoldia, BCx no growth to date, currently on vancomycin for abdominal wall skin/soft tissue infection. CT A/P without e/o abscess/loculated fluid collection. Also found to have R lobal PE with signs of RV strain on TTE. Hospital course c/b 12-second pause requiring transfer to ICU, now clinically stable transferred to . Now course c/b LLQ drain with scant purulent material. - f/u surgery recs re: ELMIRA drains. - consider U/S of the LLQ to r/o fluid collection/abscess. - cont vancomycin with target trough 10-15. Can most likely transition to PO doxy soon if no further surgical interventions. - CRP downtrending, repeat tomorrow. - discussed with ID attending Dr. Lane, final recs pending. Sharmaine Daniel PGY3, [facility]- IM resident ] <Sharmaine Daniel - Last Filed: 12/23/17 14:53> - Progress Note SOAP: Seen, examined, discussed with Dr Daniel, I agree with her note. 1. abdominal wall cellulitis and surgical site infection due to MRSA, improving as is CRP. US today to ensure no collection at left incision. Assuming no and continues to improve, can change to doxycycline 100 mg PO twice daily for 14 more days and fu with surgeon in [place] early next week and with me 1 week. 2. VTE disease Discussed with Dr Valero <Ariana NEWELL,Juan Benavides - Last Filed: 12/23/17 16:22>
[2017-12-23] MEDS: Omeprazole CAP* 20 MG PO SCH (15:45)
[2017-12-23] MEDS: Citalopram TAB* 10 MG PO SCH (16:40)
--- NOTE | 2017-12-23 17:29 | RAD ---
INDICATION: Concern for left lower quadrant subcutaneous abscess COMPARISON: CT of the chest abdomen pelvis dated December 19, 2017 TECHNIQUE: Real time ultrasound images of the left lower quadrant subcutaneous tissue were acquired with hurt scale and Doppler color flow imaging. FINDINGS: No abscess or other subcutaneous fluid collection is identified. IMPRESSION: Normal sonographic examination of the subcutaneous tissue overlying the left lower quadrant. No drainable abscess is visualized.
[2017-12-23 21:29] LABS: Hematocrit 24 % (35-47); Hemoglobin 8.1 g/dl (12.0-16.0)
[2017-12-23] MEDS: Acetaminophen TAB* 325 MG PO PRN (22:04)
[2017-12-24] MEDS: Vancomycin(*) 1,000 MG in NS 0.9% 250 ML* 250 ML IVPB SCH ×2 (00:01→09:28)
[2017-12-24] MEDS: Heparin DRIP 25,000 UNITS(*) 25,000 UNITS/500 ML BAG IV SCH ×2 (00:13→14:05)
[2017-12-24 06:48] LABS: EGFR Non-African American 106.3 (>60)
[2017-12-24] MEDS: Omeprazole CAP* 20 MG PO SCH ×2 (07:41→16:55)
[2017-12-24 07:42] LABS: Vancomycin Trough 16.7 mcg/mL
[2017-12-24 07:48] LABS: ABS Basophils 0.1 10^3/ul (0-0.2); ABS Eosinophils 0.3 10^3/ul (0-0.6); ABS Lymphocytes 2.3 10^3/ul (1.0-4.8); ABS Monocytes 0.4 10^3/ul (0-0.8); ABS Neutrophils 4.6 10^3/ul (1.5-7.7); ABS Nucleated RBC 0 10^3/ul; Hematocrit 24 % (35-47); Hemoglobin 7.9 g/dl (12.0-16.0); Lymphocyte % 29.8 % (25-47); Mean Corpuscular HGB Conc 33 g/dl (31-36); Mean Corpuscular Hemoglobin 30 pg (27-31); Mean Corpuscular Volume 89 fL (80-97); Mean Platelet Volume 9.2 um3 (7.4-10.4); Nucleated Red Blood Cells % 0.1; Platelet Count 325 10^3/ul (150-450); Red Blood Count 2.65 10^6/ul (4.0-5.4); Red Cell Distribution Width 14 % (10.5-15); White Blood Count 7.7 10^3/ul (3.5-10.8)
[2017-12-24] MEDS ORDERED: Vancomycin Trough Check NOTE FOLLOW UP ONE (08:00)
[2017-12-24] MEDS ORDERED: Vancomycin(*) 1,250 MG in NS 0.9% 250 ML* 250 ML IVPB SCH (08:30)
[2017-12-24] MEDS: Docusate CAP* 100 MG PO SCH ×2 (09:27→21:45)
[2017-12-24 10:19] LABS: Corrected Retic Count 1.2 % (0.5-1.5); Hematocrit for Retic CNT 24 % (35-47); Immature Retic Fraction 0.64; RBC Retic Count 2.67 10^6/ul (4.6-6.2)
--- NOTE | 2017-12-24 11:01 | PN ---
Subjective Date of Service: 12/24/17 Interval History: Patient reports moderate abdominal pain. She is worried infection is not under control. Has appt w/ surgeon on in [place]. She denies SOB. She feels weak, and requires assistance to walk to bathroom. Family History: Unchanged from Admission Social History: Unchanged from Admission Past Medical History: Unchanged from Admission Objective Active Medications: Acetaminophen (Tylenol Tab*) 650 mg PO Q4H PRN PRN Reason: FEVER/PAIN Last Admin: 12/23/17 22:04 Dose: 650 mg Al Hydrox/Mg Hydrox/Simethicone (Maalox Plus*) 30 ml PO Q2H PRN PRN Reason: HEARTBURN Last Admin: 12/20/17 15:04 Dose: 30 ml Citalopram Hydrobromide (Celexa Tab*) 20 mg PO QPM [facility] Last Admin: 12/23/17 16:40 Dose: 20 mg Diphenhydramine HCl (Benadryl Po*) 25 mg PO Q6H PRN PRN Reason: Allergy Symptoms Last Admin: 12/20/17 17:54 Dose: 25 mg Docusate Sodium (Colace Cap*) 100 mg PO BID [facility] Last Admin: 12/24/17 09:27 Dose: 100 mg Doxycycline Hyclate (Vibramycin Cap(*)) 100 mg PO BID [facility] Heparin Sodium (Porcine) (Heparin Vial(*)) 0 units IV .BOLUS PRN PRN Reason: BOLUS PER HEPARIN PROTOCOL Last Admin: 12/20/17 14:24 Dose: 2,400 units Heparin Sodium/Dextrose (Heparin Drip 25,000 Units(*)) 25,000 units in 500 mls @ 0 mls/hr IV PER RATE VASILE; Per Protocol PRN Reason: Protocol Last Admin: 12/24/17 00:13 Dose: 37 mls/hr Lorazepam (Ativan Inj*) 0.5 mg IV Q6H PRN PRN Reason: ANXIETY Last Admin: 12/22/17 11:50 Dose: 0.5 mg Morphine Sulfate (Morphine Vial*) 1 mg IV Q4H PRN PRN Reason: PAIN Last Admin: 12/19/17 20:45 Dose: 1 mg Omeprazole (Prilosec Cap*) 20 mg PO 0730,1630 [facility] Last Admin: 12/24/17 07:41 Dose: 20 mg Ondansetron HCl (Zofran 40 Mg Vial*) 4 mg IV Q6H PRN PRN Reason: NAUSEA Oxycodone/Acetaminophen (Percocet 5/325 Tab*) 1 tab PO Q4HR PRN PRN Reason: PAIN Last Admin: 12/23/17 15:45 Dose: 1 tab Polyethylene Glycol/Electrolytes (Miralax*) 17 gm PO DAILY PRN PRN Reason: CONSTIPATION Prochlorperazine Edisylate (Compazine Inj*) 5 mg IV Q6H PRN PRN Reason: NAUSEA/VOMITING Last Admin: 12/21/17 18:33 Dose: 5 mg Vital Signs - 8 hr 12/24/17 12/24/17 12/24/17 03:45 08:00 08:11 Temperature 36.7 C 36.4 C Pulse Rate 69 61 Respiratory 16 16 16 Rate Blood Pressure 117/67 125/65 (mmHg) O2 Sat by Pulse 97 98 Oximetry Oxygen Devices in Use Now: None Appearance: alert, no distress Eyes: No Scleral Icterus Ears/Nose/Mouth/Throat: Clear Oropharnyx Neck: NL Appearance and Movements; NL JVP Respiratory: Clear to Auscultation Cardiovascular: NL Sounds; No Murmurs; No JVD Abdominal: - - tender epigastric area, edema in abdo wall, no major erythema, no fluctuance. Incision bikini line C/D/I medial, ulcer/open LT pole, ELMIRA drains in place Extremities: No Edema Skin: - - breast incisions C/D/I Neurological: Alert and Oriented x 3 Lines/Tubes/Other Access: Clean, Dry and Intact Peripheral IV Nutrition: Taking PO's Result Diagrams: 12/24/17 06:22 12/24/17 06:22 Additional Lab and Data: Laboratory Tests 12/24/17 12/24/17 06:22 06:22 Retic Count, Calc 2.3 H Corrected Retic Count 1.2 Retic Shift Factor 2.0 Iron 25 L TIBC 253 % Saturation 10 L Vitamin B12 Pending Microbiology and Other Data: Microbiology 12/20/17 11:11 Gram Stain - Final Body Fluid - Abdominal Body Fluid Culture - Preliminary Staphylococcus Aureus Skin and Soft Tissue MRSA/MSSA (PCR - Final Mrsa Positive S.aureus Positive 12/20/17 11:11 Gram Stain - Final Body Fluid - Abdominal Body Fluid Culture - Preliminary Staphylococcus Aureus Skin and Soft Tissue MRSA/MSSA (PCR - Final Mrsa Positive S.aureus Positive Assess/Plan/Problems-Billing Ms Albert is a 47 yo F with recent extensive plastic surgery on abdomen and breasts who presented to the ER with sepsis due to abdominal wall cellulitis and was also found to have a PE. - Patient Problems (1) Pulmonary embolism Current Visit: Yes Status: Acute Priority: High Code(s): I26.99 - OTHER PULMONARY EMBOLISM WITHOUT ACUTE COR PULMONALE SNOMED Code(s): 36274300 Comment: -The patient was found to have a pulmonary embolism on admission. She remains on a heparin drip. - Will need 3 months minimum anticoagulation. Discussed risks/benefits of warfarin vs Pradaxa, given likely slow upper GI bleed. Elected to start warfarin , as there is available reversal agent. (2) Cellulitis of abdominal wall Current Visit: Yes Status: Acute Priority: Medium Code(s): L03.311 - CELLULITIS OF ABDOMINAL WALL SNOMED Code(s): 94201552 Comment: - Improving. No erythema noted. Treating for MRSA. - Reviewed Dr. Lane's note, doing well w/ vanco IV, will switch to oral doxycycline,and consider discharge in 1-2 days if doing well. (3) Iron deficiency anemia Current Visit: Yes Status: Acute Priority: Medium Code(s): D50.9 - IRON DEFICIENCY ANEMIA, UNSPECIFIED SNOMED Code(s): 56606109 Comment: - continue omeprazole for presumed gastritis/ulcer - check FOBT - started on oral iron (4) DVT prophylaxis Current Visit: Yes Status: Acute Priority: Low Code(s): ODG5284 - SNOMED Code(s): 141286560 Comment: -heparin gtt, converting to warfarin alone when INR >2 Status and Disposition: Inpatient.
[2017-12-24] MEDS: Ferrous Gluconate TAB* 324 MG TAB PO SCH (14:05)
[2017-12-24] MEDS: oxyCODONE/Acetamin 5/325 MG* TAB PO PRN (14:43)
[2017-12-24] MEDS: Citalopram TAB* 10 MG PO SCH (16:55)
[2017-12-24] MEDS ORDERED: Warfarin TAB(*) 5 MG PO SCH (17:00)
[2017-12-24] MEDS: DOXYcycline CAP(*) 100 MG PO SCH (21:45)
[2017-12-25] MEDS: Ferrous Gluconate TAB* 324 MG TAB PO SCH (03:13)
[2017-12-25 05:02] LABS: Hematocrit 24 % (35-47); Hemoglobin 8.2 g/dl (12.0-16.0); Mean Corpuscular HGB Conc 34 g/dl (31-36); Mean Corpuscular Hemoglobin 30 pg (27-31); Mean Corpuscular Volume 88 fL (80-97); Mean Platelet Volume 8.2 um3 (7.4-10.4); Platelet Count 333 10^3/ul (150-450); Red Blood Count 2.74 10^6/ul (4.0-5.4); Red Cell Distribution Width 13 % (10.5-15); White Blood Count 9.8 10^3/ul (3.5-10.8)
[2017-12-25 05:10] LABS: INR 1.01 (0.77-1.02)
[2017-12-25 05:18] LABS: ABS Basophils 0.1 10^3/ul (0-0.2); ABS Eosinophils 0.3 10^3/ul (0-0.6); ABS Lymphocytes 2.7 10^3/ul (1.0-4.8); ABS Monocytes 0.5 10^3/ul (0-0.8); ABS Neutrophils 6.1 10^3/ul (1.5-7.7)
[2017-12-25 05:29] LABS: EGFR Non-African American 95.2 (>60)
[2017-12-25 05:40] LABS: Monocytes % 3 % (0-7)
[2017-12-25] MEDS: Docusate CAP* 100 MG PO SCH (08:14)
[2017-12-25] MEDS: Omeprazole CAP* 20 MG PO SCH (08:14)
[2017-12-25] MEDS: DOXYcycline CAP(*) 100 MG PO SCH (08:14)
--- NOTE | 2017-12-25 10:26 | PN ---
Progress Note - Progress Note Date of Service: 12/25/17 Note: Discharge Progress Note Primary Diagnosis: Sepsis due to abdominal wall infection, MRSA Secondary Diagnoses: pulmonary embolism morbid obesity iron deficiency anemia suspected GI bleeding recent reduction mammoplasty, abdominoplasty anxiety premature menopause x 10 years Consultations: Dr. Kirkpatrick of GI Dr. Francois, General Surgery Dr. Lane of ID Procedures: none Complications: none Pertinent lab/radiology testing: Microbiology 12/25/17 07:57 Stool Stool Occult Blood (VERONICA) - Final 12/24/17 03:50 Stool Stool Occult Blood (VERNOICA) - Final 12/20/17 11:11 Body Fluid - Abdominal Gram Stain - Final 12/20/17 11:11 Body Fluid - Abdominal Skin and Soft Tissue MRSA/MSSA (PCR - Final MRSA Mrsa Positive S.aureus Positive 12/20/17 11:11 Body Fluid - Abdominal Gram Stain - Final 12/20/17 11:11 Body Fluid - Abdominal Skin and Soft Tissue MRSA/MSSA (PCR - Final MRSA Finegoldia Magna Mrsa Positive S.aureus Positive Laboratory Tests 12/18/17 12/18/17 12/19/17 23:51 23:51 16:17 WBC Hct Myelocytes % Retic Count, Calc Corrected Retic Count INR (Anticoag Therapy) APTT Sodium 132 L 133 L Lactic Acid 0.8 Iron TIBC % Saturation Troponin I C-Reactive Protein Vitamin B12 12/19/17 12/22/17 12/24/17 21:45 08:04 06:22 WBC Hct Myelocytes % Retic Count, Calc Corrected Retic Count INR (Anticoag Therapy) APTT Sodium Lactic Acid Iron TIBC % Saturation Troponin I 0.02 C-Reactive Protein 112.60 H 45.67 H Vitamin B12 12/24/17 12/24/17 12/25/17 06:22 06:22 04:49 WBC 9.8 Hct 24 L Myelocytes % 4 H Retic Count, Calc 2.3 H Corrected Retic Count 1.2 INR (Anticoag Therapy) APTT Sodium Lactic Acid Iron 25 L TIBC 253 % Saturation 10 L Troponin I C-Reactive Protein Vitamin B12 1135 H 12/25/17 12/25/17 04:49 04:50 WBC Hct Myelocytes % Retic Count, Calc Corrected Retic Count INR (Anticoag Therapy) 1.01 APTT 67.1 H Sodium 138 L Lactic Acid Iron TIBC % Saturation Troponin I C-Reactive Protein Vitamin B12 Tests pending upon discharge: Factor V Leiden Prothrombin Gene mutation PT/INR Discharge Physical Exam: Selected Entries 12/25/17 03:34 Temperature 36.9 C Pulse Rate 64 Respiratory 20 Rate Blood Pressure 126/61 (mmHg) O2 Sat by Pulse 97 Oximetry Alert, ambulatory Lungs: clear Breasts: anchor scars bilat C/D/I Abdo: tender, indurated epigastric area, bikini line incision ELMIRA drain RT pole, 1 cm open area LT pole, serous drainage.
[2017-12-25 10:30] VITALS: BP 120/56
[2017-12-25] MEDS ORDERED: Enoxaparin(*) 100 MG/ML SYR SUBCUT SCH (14:00)
[2017-12-25] MEDS: Acetaminophen TAB* 325 MG PO PRN (14:11)
--- NOTE | 2017-12-26 02:03 | DS ---
CC: Dr. Keila Ortega; Dr. Keyur Reed, phone # [phone]; Dr. Lou Santillan. * DISCHARGE SUMMARY: DATE OF ADMISSION: 12/19/17 DATE OF DISCHARGE: 12/25/17 PRIMARY DIAGNOSIS: Sepsis due to abdominal wall infection, proven to be methicillin-resistant Staphylococcus aureus on body fluid testing. SECONDARY DIAGNOSES: 1. Pulmonary embolism. 2. Morbid obesity. 3. Iron deficiency anemia. 4. Suspected gastrointestinal bleeding. 5. Recent reduction mammoplasty and abdominoplasty. 6. Anxiety and premature menopause x10 years. MEDICATIONS ON DISCHARGE: 1. Acetaminophen 650 mg p.o. q.4 hours p.r.n. pain or fever. 2. Maalox 30 mL q.2 hours p.r.n. dyspepsia. 3. Buspirone 10 mg p.o. t.i.d. p.r.n. anxiety. 4. Citalopram 20 mg p.o. q.p.m. 5. Colace 100 mg p.o. b.i.d. 6. Doxycycline 100 mg p.o. b.i.d. x6 days. 7. Enoxaparin 90 units subcutaneous b.i.d. until INR has been above 2 for 1 day , at which point it will be stopped. 8. Ferrous gluconate 325 mg p.o. q.12 hours. 9. Omeprazole 20 mg p.o. b.i.d. 10. Oxycodone 1 tab p.o. q.4 hours p.r.n. pain. 11. MiraLAX 17 g p.o. mixed with water daily for constipation. 12. Warfarin 5 mg p.o. q.p.m. initiated on 12/24/17. HOSPITAL COURSE: The patient was admitted to the hospitalist service on with fever to 103, abdominal pain. She had a recent reduction mammoplasty and abdominoplasty in [place] and was started on Keflex as an outpatient through the surgical office. CT of the chest, abdomen, and pelvis at that time showed abdominal wall edema without any fluid collection. There are several right lower lobe pulmonary emboli as well as hepatomegaly consistent with nonalcoholic fatty liver disease. The patient had a consultation with Dr. Francois of Surgery and he followed the patient throughout the hospital stay. The patient did not require any surgical intervention. A repeat ultrasound on 12/23 showed no fluid collection near the bikini line incision. The patient did lose her ELMIRA drain on the left side of that incision and since then has been draining yellow fluid, slightly cloudy purulent fluid from that area, soaking her 4x4s. The rest of the bikini line wound looks clean, dry, and intact and there is a ELMIRA drain in the right pole of that wound. There are also scars under the breasts from the reduction mammoplasty which look clean, dry, and intact. The patient had a consultation by Dr. Lane of Infectious Disease who addressed her antibiotic treatment for this soft tissue infection. She was initially treated with vancomycin and Zosyn and when she improved, she was switched to oral doxycycline to complete the course. The microbiology turned out to be polymicrobial with Finegoldia magna also growing from her body fluid culture. Her blood cultures were negative after 5 days. Urine culture showed no growth. The patient's pulmonary embolism was thought to be related to postop state as well. The patient was treated with intravenous heparin and initiated on warfarin on the day prior to discharge. We chose warfarin because it could be reversed if she began to bleed internally relatively easily with vitamin K. She will need to have an INR of above 2 for 1 day of overlap on heparin, so she was discharged on subcutaneous Lovenox to take for 2 to 4 days until her INR is in the proper range for a period of time. She should be seen by her primary care doctor within 2 or 3 days for followup with this complicated hospital stay. The patient did have an anemia with hematocrit of 29 on admission, falling to 23 on 12/22/17. Once fecal occult blood test was positive and 2 subsequent tests were negative for blood. She had a gastroenterology consult with Dr. Kirkpatrick who advised starting a PPI for presumed gastritis or ulcer and possibly due to NSAID use. He has not performed any endoscopy or colonoscopy. Her hematocrit was stable and she was on heparin, so she was able to start warfarin without any further apparent bleeding. She is to have blood work done in the outpatient lab in 1 to 2 days after discharge to check her INR, CBC, as well as prothrombin 41208 mutation and factor V Leiden testing. DISPOSITION: To home where she lives with her family. ACTIVITIES: Should be as tolerated. She is to see her surgeon on of this week if in [place] and she should see Dr. Kirkpatrick for Gastroenterology if her anemia persists. More than 1 hour was spent in examining the patient, discussing discharge planning, and arranging discharge for this complicated medical patient. [id number]/[facility] #: [id number] SONIDO
[2017-12-27] MEDS ORDERED: Vancomycin Trough Check NOTE FOLLOW UP ONE (08:00)
== END 2017-12-25 15:03 | disposition home or self-care (01) | DRG 862 ==
LOC: ED 22:21 → MEDTELE 12-19 13:21 → OBSVTOIN 12-19 13:52 → ICU 12-19 20:28 → MEDTELE 12-21 16:31
PROVIDERS: ADMIT Internal Medicine; ATTEND Internal Medicine
DX: T81.4XXA Infection following a procedure, initial encounter (principal); A41.02 Sepsis due to Methicillin resistant Staphylococcus aureus; I26.99 Other pulmonary embolism without acute cor pulmonale; L03.311 Cellulitis of abdominal wall; R40.2142 Coma scale, eyes open, spontaneous, at arrival to emergency department; R40.2362 Coma scale, best motor response, obeys commands, at arrival to emergency department; R40.2252 Coma scale, best verbal response, oriented, at arrival to emergency department; F41.9 Anxiety disorder, unspecified; K21.9 Gastro-esophageal reflux disease without esophagitis; G89.29 Other chronic pain; F32.9 Major depressive disorder, single episode, unspecified; F90.9 Attention-deficit hyperactivity disorder, unspecified type; Y65.8 Other specified misadventures during surgical and medical care; B96.89 Other specified bacterial agents as the cause of diseases classified elsewhere; K76.0 Fatty (change of) liver, not elsewhere classified; E66.01 Morbid (severe) obesity due to excess calories; D50.9 Iron deficiency anemia, unspecified; K29.71 Gastritis, unspecified, with bleeding; K25.4 Chronic or unspecified gastric ulcer with hemorrhage; Z88.5 Allergy status to narcotic agent; Z80.3 Family history of malignant neoplasm of breast; Z83.6 Family history of other diseases of the respiratory system; Z82.49 Family history of ischemic heart disease and other diseases of the circulatory system; Z68.37 Body mass index [BMI] 37.0-37.9, adult; Y92.9 Unspecified place or not applicable; Z79.01 Long term (current) use of anticoagulants
CPT/HCPCS: 36415; 71260; 74177; 80048; 80053; 80202; 81003; 81015; 82272; 82565; 82607; 83540; 83550; 83605; 83735; 84484; 84520; 85014; 85018; 85025; 85027; 85045; 85610; 85730; 86140; 86141; 87040; 87070; 87076; 87077; 87086; 87186; 87205; 87640; 87641; 93005; 93306; 93970; 99285; A9270-GY; J0610; J0780; J1644; J1650; J2060; J2270; J2405; J2543; J3370; J3475; Q9967

== ENCOUNTER 2018-01-10 11:30 | Emergency (ER) | payer OTHER ==
--- OUTSIDE RECORDS SUMMARY | 2018-01-10 11:42 | XMS REPORT ---
:1970 External Reference #:[id number] Author Organization [facility] Address [address] [place] [address] Phone [phone] Care Team Providers Name Role Phone Keila Ortega M.D. Care Team Information Preservationist Unavailable Keila Ortega M.D. Primary Care Physician Unavailable Payers Type Date Identification Numbers Payment Provider Subscriber Health Maintenance Effective: Policy Number: [facility] ([facility]) 07/25/2012 [id number] [employer] Group Number: [id number] [id number] Group Name: [facility] [place] [address] PayID: [id number] Problems Date Description Provider Status Onset: 01/10/2012 Anxiety state Willie Piper M.D. Active Onset: 01/10/2012 Depressive disorder Willie Piper M.D. Active Onset: 01/10/2012 Allergic rhinitis Willie Piper M.D. Active Onset: 09/19/2012 Sciatica Ron Hightower M.D. Active Onset: 10/24/2012 Low back pain Willie Piper M.D. Active Onset: 03/24/2016 Mixed hyperlipidemia Keila Ortega M.D. 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 Active Onset: 12/20/2017 H/O: pulmonary embolus Keila Ortega M.D. Active Onset: 2011 Acute upper respiratory infection Willie Piper M.D. Resolved Resolved: 07/08/2015 Onset: 05/04/2012 Blepharitis Willie Piper M.D. Resolved Resolved: 07/08/2015 Onset: 01/11/2014 Acute sinusitis Willie Piper M.D. Resolved Resolved: 07/08/2015 Onset: 2011 Backache Willie Piper M.D. Resolved Resolved: 03/24/2016 Onset: 2011 Neuralgia Willie Piper M.D. Resolved Resolved: 03/24/2016 Onset: 09/20/2013 Carpal tunnel syndrome Willie Piper M.D. Resolved Resolved: 03/24/2016 Family History Date Family Member(s) Problem(s) Comments Father No Current Problems : (age 91 Years) Father due to Congestive Heart Failure Mother due to Pneumonia () Number of Siblings Siblings: 6 First Brother ALS Text Input No immediate family members with early RI or CVA. No immediate family history of colon, breast, ovarian, cervical or prostate cancer. 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 & Congestion /2017 12HR s by mouth Jaskaran, twice ACTUARIAL ANALYST daily Citalopram 09/13 Active Tablets 20mg 90tab Take 1 Keila Hydrobromide s Tablets Fritch, By Mouth M.D. Every Day Acetaminophen ER Active Tablets ER 650mg 1 by Unknown /0000 mouth every 4 hr prn pain or fever Maalox Max Active Suspension 400-400-4 30ml q 2 Unknown /0000 0mg/5ML hr prn dyspepsia Buspirone HCL Active Tablets 10mg 1 po tid Unknown /0000 prn anxiety Colace Active Capsules 100mg 1 by Unknown /0000 mouth twice daily Doxycycline Active Capsules 100mg take one Unknown Monohydrate tablet by mouth twice a dayx 6 days Enoxaparin Sodium Active Solution 100mg/ml 10ml 90 units sq twice Fritch, a day as M.D. needed until inr above 2 for 1 day as which point it will be stopped. Ferrous Gluconate Active Tablets 324(38Fe) 1 po bid mg Omeprazole Active Capsules 20mg [address] Oxycodone HCL Active Tablets 5mg 1 by mouth every 4 hours as needed for pain Miralax Active Packet 3350NF 17 grams every day with large glass water constipat ion Warfarin Sodium Active Tablets 5mg 1 by mouth every day Phentermine HCL 05/31 Hx Capsules 37.5mg 90cap 1 by s mouth Fritch, - every day M.D. 09/13 Citalopram 03/21 Hx Tablets 20mg 90tab take 1 Keila mid s tablets Fritch, - by mouth M.D. 09/13 Phentermine HCL 03/21 Hx Capsules 15mg 30cap 1 tab by s mouth Fritch, - every M.D. 05/31 Bupropion HCL ER 03/09 Hx Tablets ER 150mg 30tab Take One Keila (XL) 24HR s Tablet By Fritch, - Mouth M.D. 03/21 Citalopram 01/21 Hx Tablets 10mg 180ta Take 1 To Hydrobromid bs 2 Tablets Thong, - Daily FAMILY RESOURCE MANAGEMENT SPECIALIST 03/21 Azithromycin 01/21 Hx Tablets 250mg 9tabs 2 tabs by J01.90 mouth Thong, - today, 2 FAMILY RESOURCE MANAGEMENT SPECIALIST 01/27 tabs by /2016 mouth tomorrow, then 1 tab by mouth daily x 5 days Medrol 01/21 Hx Tablets 4mg 1tabs as directed Thong, - FAMILY RESOURCE MANAGEMENT SPECIALIST 01/21 Bupropion HCL ER 11/24 Hx Tablets ER 150mg 30tab 1 by F41.9 (XL) 24HR s mouth Fritch, - every day M.D. 01/21 Adderall XR 12/30 Hx Caps ER 10mg 30cap take one R41.840 24HR s capsule , - by mouth M.D. 12/27 daily maximum daily dose=1 capsule Levofloxacin 07/21 Hx Tablets 500mg 5tabs 1 by mouth Fritch, - every day M.D. 12/30 for days Estrogen 07/08 Hx 1.5 1 po qd Unknown /2014 - 12/27 Progesterone 07/08 Hx Capsules take one Unknown Micron capsule - qd 12/27 Flovent HFA 05/02 Hx Aerosol 110mcg/Ac 1inha take 1 R05 t ler puffs Thong, - inhaled FAMILY RESOURCE MANAGEMENT SPECIALIST 07/08 twice a day one week samples Azithromycin 05/02 Hx Tablets 250mg 9tabs 2 tabs by J01.90 mouth Thong, - today, 2 FAMILY RESOURCE MANAGEMENT SPECIALIST 07/08 tabs by mouth tomorrow, then 1 tab by mouth daily x 5 days Meloxicam 01/23 Hx Tablets 7.5mg 30tab 1 by 724.2 Russell Roldan, /2014 s mouth M.D. - every day 07/08 Cyclobenzaprine 01/23 Hx Tablets 10mg 30tab 1 by 724.2 Russell Roldan, HCL s mouth M.D. - three 07/08 times day as needed Hydrocodone-Aceta 01/23 Hx Tablets 5-325mg 40tab 1 every 6 724.2 Russell Roldan, min s hours as M.D. - needed 07/08 Hydrocodone 01/11 Hx Liquid ER 10-8mg/5M 100ml 1 tsp q 461.9 Willie Anibal Polistirex/Chlorp /2013 L 12 hrs robbie Piperiramine - prn for M.D. Polistirex 05/22 cough Levofloxacin 01/11 Hx Tablets 500mg 10tab 1 po qd 461.9 Willie T. /2013 s Midura, - M.D. 05/22 Azithromycin 12/06 Hx Tablets 250mg 6tabs 2 po 466.0 Jen /2013 today and AMADEO Nunez - 1 tab x 4 Hydrocodone 12/06 Hx Liquid ER 10-8mg/5M 115ml 1 tsp q 466.0 Jen Polistirex/Chlorp L 12 hrs AMADEO Nunez heniramine - prn for Polistirex 01/11 cough Meloxicam 09/20 Hx Tablets 7.5mg 30tab 1 po qd 354.0 Willie T. s take with Feliz, - food. M.DLisa 12/06 Bilateral Wrist 07/09 Hx Paresthes 354.0 Jen And ias in AMADEO Nunez Splint - both 05/22 hands Dx: Possible Carpal Tunnel Syndrome Hydrochlorothiazi 07/09 Hx Tablets 12.5mg 30tab 1 po qd 354.0 Jen s prn AMADEO Nunez - 09/20 Citalopram 01/29 Hx Tablets 20mg 90tab Take One Milly Hydrobromide s Tablet By Geo, - Mouth FAMILY RESOURCE MANAGEMENT SPECIALIST 01/20 Every Day Oxycodone/Acetami 10/24 Hx Tablets 10-325mg 60tab 1 po qid Willie hess s prn Feliz, - M.DLisa 01/08 Gabapentin 10/24 Hx Capsules 300mg 60cap take 1-2 Willie Reynoso. s caps at [facility], - bedtime M.D. 01/08 for pain Work Excuse 09/25 Hx can Ron Saldana /2012 return to [facility], - work M.D. 10/2410/09/12 Medrol Dosepak 09/25 Hx Tablets 4mg 1tabs as Willie T. /2012 directed [facility], - M.DLisa 01/08 Hydromorphone HCL 09/21 Hx Tablets 4mg 20tab 1 qid Ron Saldana /2012 s prn pain [facility], - dt M.D. 01/08 Prednisone 09/19 Hx Tablets 20mg 18tab 3 x 3 Ron Saldana /2012 s days 2 x [place], - 3 days 1 M.DLisa 10/24 x 3 days /2012 Work Excuse 09/19 Hx unable to Ron Saldana /2012 work [place] - this week M.D. 10/24 Handicapped 09/19 Hx needs Ron Saldana Parking handicapp [place] - ed M.D. 01/08 sticker for 3 mths due to back pain ne Physical Therapy 09/19 Hx treatment Ron Stefania. and [place], - evaluatio M.DLisa 01/08 n low back pain Oxycodone/Acetami 09/16 Hx Tablets 5-325mg 50tab 1-2 qid Willie T. nophen s prn pain [facility], - dt M.D. 10/24 Montelukast 05/21 Hx Tablets 10mg 90tab Take 1 Willie T. s Tablet AT [facility], - Bedtime M.D. 05/22 FML 05/04 Hx Ointment 0.1% 1Tube apply bid Willie T. to tid to [facility], - eyelid M.D. 09/19 clear Oxycodone/Acetami 01/12 Hx Tablets 5-325mg 30tab 1-2 qid Willie T. nophen s prn pain [facility], - M.D. 05/04 Prednisone 01/12 Hx Tablets 10mg 18tab 2 am, 1 Willie T. s pm x [facility], - days then M.D. 05/04 1 bid x 3 days then 1 qd x 3 Hydrocodone/Aceta 01/09 Hx Tablets 5-325mg 40tab 1-2 po Willie T. minophen s qid prn [facility], - pain M.D. 05/04 Handicapped 01/09 Hx requires Willie T. Parking handicapp [facility], - ed M.D. 05/04 parking dx:low back pain length of need 3 months Physical Therapy 01/09 Hx treatment Willie T. /2011 and [facility], - evaluatio M.D. 05/04 n low back pain Chiropractic 01/09 Hx evaluate Willie T. Treatments and treat [facility], - back M.D. 01/12 pain Carisoprodol 06/29 Hx Tablets 350mg 40tab take 1 Willie T. s tablet [facility], - four M.D. 01/12 times day as needed for muscle spasm Physical Therapy 06/29 Hx treatment [facility]. [facility], - [facility] M.[facility]. 01/09 n upper back pain and radiculop athy left arm Cyclobenzaprine 12/11 Hx Tablets 5mg 30tab 1-2 at hs Willie T. HCL s for [facility], - muscle M.D. 04/06 spasm Naproxen 12/11 Hx Tablets 500mg 30tab 1 po bid Willie T. s prn pain [facility], - M.D. 01/09 Hydrocodone/Aceta 12/11 Hx Tablets 5-325mg 30tab 1-2 po Willie T. min s qid prn [facility], - pain M.[facility]. 01/09 Singulair 10/12 Hx Tablets 10mg 90tab Take 1 Willie T. s Tablet AT [facility], - Bedtime M.D. 05/21 Doxycline 08/24 Hx Capsules 100mg 20cap 1 po bid s Rajendra, - Afnp-C 09/03 Tussionex 08/11 Hx Liquid ER 100cc 1 tsp q12hrs Rajendra, - prn cough Afnp-C 08/31 Zithromax 06/04 Hx Tablets 250mg 6Tabs 2 po qd Willie T. today , Feliz, - then 1 po M.D. 07/30 qd 4 Medrol Dosepak 06/04 Hx Tablets 4mg 1tabs as Willie T. directed Feliz, - M.D. 10/12 Levaquin 05/28 Hx Tablets 500mg 10tab 1 po qd Willie T. s Feliz, - M.D. 06/04 Tessalon 05/28 Hx Capsules 200mg 30cap 1 tid prn Willie T. s cough Feliz, - M.D. 06/12 Claritin-D 24 05/13 Hx Tablets ER 10-240mg 15tab 1 po qd 461.9 [place] RaulLisa Hour 24HR cassie Vega M.D. - 08/11 Amoxicillin/Clavu 05/13 Hx Tablets 500-125mg 20tab 1 po bid 461.9 Maatmoros A. lanate cassie Vega M.D. - 05/28 Citalopram 05/04 Hx Tablets 10mg 180ta Take 1 To Willie T. Hydrobromide bs 2 Tablets Midura, - Daily M.D. 01/29 Clonazepam 03/19 Hx Tablets 0.5mg 60tab 1 bid Willie T. s prn Midura, - anxiety M.D. 06/12 Xanax 02/17 Hx Tablets 0.25mg 60tab 1 tabs po Willie T. s bid prn Midura, - anxiety M.D. 08/11 Ketoconazole 02/17 Hx Cream 2% 30gm apply to Willie T. rash qd Midura, - to bid M.D. 04/06 Zithromax 06/11 Hx Tablets 250mg 6Tabs 2 po qd 388.70 Milly today , Geo, - then 1 po FAMILY RESOURCE MANAGEMENT SPECIALIST 02/17 qd times 4 Cortisporin Otic 06/11 Hx Solution 10ml 4-5 qtts 388.70 in each Geo, - ear qid x FAMILY RESOURCE MANAGEMENT SPECIALIST 02/17 Antivert 04/30 Hx Tablets 25mg 15tab 1 tid prn 386.11 Luis Eduardo A. s dizziness Agapito - Saeed.DLisa 05/05 Nasonex 12/19 Hx Suspension 50mcg/Act 2 sprays 388.70 qhs each Nora, - nostril Afnp-C 04/30 Biaxin-xl 09/30 Hx 500mg 20uni 2 po qd 460 Luis Eduardo A. Jose David Cameron M.D. 10/10 Allerx Dose Pack 09/30 Hx Tablets 8mg;2.5mg 20tab 1 po bid 460 Luis Eduardo A. ;120MG;2. s Agapito - 5M M.DLisa 10/10 Augmentin 09/04 Hx Tablets 500mg 20tab 1 po bid 382.9 [place]amoros A. s with food Aditya Vega - x 10 days 09/28 Pen-VK 03/26 Hx Tablets 500mg 20tab 1 po bid s Rajendra, - Afnp-C 04/05 Hearing Test 03/26 Hx PT Needs To Have A Kaileeorf, - Hearing Afnp-C 09/04 Test Evaluatio n Done Due To Hearing Loss Epipen 11/08 Hx Device 1:1000 1unit as 995.3 s Directed Nora, - Afnp-C 05/27 Medrol Dosepak 11/08 Hx Tablets 4mg 1tabs as 995.3 Directed Nora, - Afnp-C 03/26 Patanol 11/08 Hx Solution 0.1% 15cc 2 gtt 995.3 Both Eyes Nora, - bid prn Afnp-C 09/04 Lidex-E 10/23 Hx Cream 0.05% 30uni apply to ts affected Rajendra, - area bid Afnp-C 03/26 Biaxin XL 10/13 Hx Tablets ER 500mg 20tab 2 PO qd Luis Eduardo A. 24HR Jose David Perez M.D. 10/23 Amoxicillin 08/28 Hx Tablets 500mg 30tab 1 po tid 461.9 s Geo, - [facility] 10/13 Amoxicillin 09/28 Hx Capsules 250mg 30cap 1 po tid Ron JLisa /2007 Jose David Metha M.D. 10/08 Valtrex 12/02 Hx Caplets 1,000mg 12cap 2 Tabs 054.9 s bid For Geo, - 1D At The [facility] 09/28 Sign Of An Outbreak Amoxicillin 08/17 Hx Capsules 500mg 30cap 1 po tid s x 10D Rajendra, - Afnp-C 08/27 Z-Pack 06/25 Hx 1Pak 1unit as Jose Miguel Saldana /2004 s Jose David Murguia M.D. 06/30 Robitussin A-c 06/25 Hx Syrup 100mg;10m 120un 1-2 TSP Jose Miguel J. /2004 g/5ML its PO qid Finver, - prn Cough M.D. 06/30 Norflex 01/27 Hx 100mg 30uni 1 PO bid ts Nora, - Afnp-C 08/17 Physical Therapy 01/27 Hx treatment and Nora, - evaluatio Afnp-C 02/02 n sciatic pain Retin A Gel 09/25 Hx 0.025% 45gm apply to Luis Eduardo A. affected Agapito, - area qhs M.D. 08/17 Medrol Dosepack 07/10 Hx 4mg 1unit as Luis Eduardo A. s Directed Agapito, - M.D. 07/22 Abreva 07/05 Hx Cream 2gm Apply Up Luis Eduardo To 5x/Day Agapito, - as Needed M.D. 09/25 Benzaclin 07/05 Hx Gel 25Gra Apply bid Luis Eduardo m Agapito - M.D. 07/10 Motrin 06/15 Hx 800mg 40uni 1 PO tid Matt F. ts prn Tono - M.DLisa 07/05 Flexeril 06/15 Hx Tabs 10mg 30tab 1 PO tid Matt F. s prn Tono, - Muscle M.D. 07/15 Spasm Physical Therapy 06/15 Hx Treatment Matt F. And Tono, - Evaluatio M.D. 06/16 n Neck , L Shoulder Pain Tylenol #3 06/15 Hx #3 20uni 1 PO Q4H Matt F. ts prn Tono - M.D. 07/15 Denavir 02/15 Hx 2gm Apply Q 2 Paul M. /1999 HRS While Danii, - Awake X 4 M.D. Zithromax 02/15 Hx 250mg 6unit 2 Tabs Paul MLisa /1999 s Day 1 Danii, - M.DLisa 02/20 1 Tab qd Days 2 Thru 5 Ortho-Novum 7/7/7 03/04 Hx 0unit [facility] [place] Robitussin ac 09/25 Hx 4Oz 1-2 TSP PO Q4H Hilsdorf, - prn Cough Afnp-C 10/02 Denavir 05/18 Hx 2gm Apply To Afected Kaileeorf, - Area Q Afnp-C 05/22 2-3 HRS /1998 While Awake X 4 Days Chibroxin 02/09 Hx Ophth Indu 10cc One GTT Matt F. qid To Tono, - Effected M.D. 02/14 Eye Metrogel 02/09 Hx .75% 1unit Apply bid Matt F. s Tono, - M.D. 03/11 Physical Therapy 10/13 Hx Treatment Willie T. And Midura, - Evaluatio M.D. 10/14 n RT Knee Pain Motrin 10/13 Hx 600mg 60uni 1 PO tid Willie T. ts prn Midura, - M.D. 10/27 Robitussin ac 09/18 Hx 4Oz 1-2 TSP Sophia PO Q4H Nora, - prn Cough Afnp-C 09/28 Robitussin Dac 05/19 Hx Liq 120cc 1-2 TSP Q Willie T. 4-6 HRS Midura, - prn Cough M.D. 09/18 Zithromax 05/19 Hx 250mg 6unit 2 Tabs Willie T. s Day 1 Midura, - M.D. 09/18 1 Tab qd Days 2 Thru 5 Entex Pse 04/09 Hx 30uni 1 bid prn Willie T. ts Congestio Midura, - n M.D. 05/19 Zithromax 04/09 Hx 250mg 6unit 2 Tabs Willie T. s Day 1 Midura, - M.D. 05/19 1 Tab qd Days 2 Thru 5 Robitussin ac 12/24 Hx 4Oz 1-2 TSP Paul M. PO Q4H Blumkin, - prn M.D. 12/31 Motrin 10/04 Hx 600mg 60uni 1 PO tid Matt F. ts prn Tono - M.D. 11/03 Flexeril 10/04 Hx 10mg 20uni 1 PO tid Matt F. ts prn Tono, - Muscle M.D. 11/03 Spasm Keflex 09/09 Hx Tabs 5Oomg 21tab tid Ron J. cassie Hightower - M.D. 12/24 Prednisone 04/29 Hx Tabs 20mg 15tab 3 PO qd X Matt F. s 2D,2 PO Shallish, - qd X3D, 1 M.D. 05/07 PO QDX Citalopram Hx Unknown Hydrobromide /0000 - 04/06 Cyclobenzaprine Hx Tablets 10mg 30tab 1 tid prn Willie T. HCL /0000 s muscle Midura, - spasm. M.D. 01/08 Phentermine HCL Hx Capsules 15mg 1 po qd Unknown /0000 - 05/26 Medications Administered in Office Medication Date Status Form Strength Qnty SIG Indications Ordering Provider TB Intradermal 12/27/ Administered Injection Willie Damon 2005 Aditya Piper TB Intradermal 02/15/ Administered Injection Paul Damon 1999 Aditya Foy TB Intradermal 04/18/ Administered Injection Family Test 1973 [facility] Injection 11/10/ Administered Injection Family Subcutaneous [facility] Intramuscular [facility] Immunizations CPT Code Status Date Vaccine Lot # [id number] Given 05/13/2010 Tdap Tetanus, W Pertussis [id number] 33137 Given 02/18/2000 Td Immunization, For Use In Individuals 7 Years Or Older 63346 Given 01/13/1979 Tetanus And Diptheria Adult Preservative Free >7Yrs 46864 Given 01/13/1979 (IPV) Inactive Poliovirus Vaccine 80860 Given 06/16/1973 Measles Immunization 61989 Given 04/18/1973 (IPV) Inactive Poliovirus Vaccine 59566 Given 04/18/1973 DTP Immunization 03908 Given 07/24/1971 DTP Immunization 46603 Given 10/13/1970 Mumps Immunization 05447 Given 07/07/1970 Rubella Immunization 50555 Given 11/11/1969 (IPV) Inactive Poliovirus Vaccine 34194 Given 11/11/1969 DTP Immunization 82146 Given 02/07/1969 (IPV) Inactive Poliovirus Vaccine 84627 Given 1968 (IPV) Inactive Poliovirus Vaccine 43190 Given 1968 DTP Immunization 07501 Given 1968 DTP Immunization 97486 Given 1968 DTP Immunization Vital Signs Date Vital Result Comment 01/06/2018 BP Systolic 104 mmHg BP Diastolic 70 mmHg Heart Rate 106 /min Body Temperature 98.1 F Height 63 inches 5'3" 12/28/2017 BP Systolic 120 mmHg BP Diastolic 64 mmHg Heart Rate 64 /min Body Temperature 98.6 F Respiratory Rate 16 /min Height 63 inches 5'3" Weight 199.00 lb BMI (Body Mass Index) 35.2 kg/m2 09/13/2017 BP Systolic 110 mmHg BP Diastolic 78 mmHg Heart Rate 76 /min Body Temperature 98.2 F Respiratory Rate 18 /min Height 63 inches 5'3" Weight 191.00 lb BMI (Body Mass Index) 33.8 kg/m2 05/31/2017 BP Systolic 124 mmHg BP Diastolic 60 mmHg Heart Rate 82 /min Body Temperature 97.0 F Respiratory Rate 16 /min Height 63 inches 5'3" Weight 197.00 lb BMI (Body Mass Index) 34.9 kg/m2 03/21/2017 BP Systolic 140 mmHg BP Diastolic 74 mmHg BP Systolic Recheck 120 mmHg BP Diastolic Recheck 70 mmHg Heart Rate 78 /min Body Temperature 98.8 F Respiratory Rate 16 /min Height 63 inches 5'3" Weight 197.00 lb BMI (Body Mass Index) 34.9 kg/m2 01/21/2017 BP Systolic 104 mmHg BP Diastolic 62 mmHg Heart Rate 78 /min Body Temperature 97.3 F Height 63 inches 5'3" Weight 193.00 lb BMI (Body Mass Index) 34.2 kg/m2 11/24/2016 BP Systolic 116 mmHg BP Diastolic 60 mmHg Heart Rate 78 /min Body Temperature 97.9 F Respiratory Rate 16 /min Height 63 inches 5'3" Weight 186.25 lb BMI (Body Mass Index) 33.0 kg/m2 05/27/2016 BP Systolic 120 mmHg BP Diastolic 72 mmHg Heart Rate 68 /min Body Temperature 97.0 F Respiratory Rate 18 /min Height 63 inches 5'3" Weight 180.00 lb BMI (Body Mass Index) 31.9 kg/m2 02/10/2016 BP Systolic 120 mmHg BP Diastolic 70 mmHg Heart Rate 68 /min Body Temperature 98.1 F Respiratory Rate 18 /min Height 63 inches 5'3" Weight 176.00 lb BMI (Body Mass Index) 31.2 kg/m2 12/31/2015 BP Systolic 110 mmHg BP Diastolic 72 mmHg Heart Rate 78 /min Body Temperature 97.5 F Respiratory Rate 16 /min Height 63 inches 5'3" Weight 172.00 lb BMI (Body Mass Index) 30.5 kg/m2 07/08/2015 BP Systolic 120 mmHg BP Diastolic 70 mmHg Heart Rate 92 /min Body Temperature 101.9 F Respiratory Rate 16 /min Height 63 inches 5'3" Weight 214.00 lb BMI (Body Mass Index) 37.9 kg/m2 05/02/2015 BP Systolic 120 mmHg BP Diastolic 74 mmHg Heart Rate 85 /min Body Temperature 98.7 F Respiratory Rate 16 /min O2 % BldC Oximetry 97 % Uir Height 63 inches 5'3" Weight 210.00 lb BMI (Body Mass Index) 37.2 kg/m2 01/23/2015 BP Systolic 120 mmHg BP Diastolic 70 mmHg Heart Rate 74 /min Body Temperature 98.4 F Respiratory Rate 16 /min Height 63 inches 5'3" 09/13/2014 BP Systolic 120 mmHg BP Diastolic 70 mmHg Heart Rate 76 /min Body Temperature 100.1 F Respiratory Rate 20 /min Height 63 inches 5'3" Weight 212.00 lb BMI (Body Mass Index) 37.6 kg/m2 05/22/2014 BP Systolic 110 mmHg BP Diastolic 75 mmHg Heart Rate 80 /min Body Temperature 97.4 F Respiratory Rate 16 /min Height 63 inches 5'3" Weight 209.00 lb BMI (Body Mass Index) 37.0 kg/m2 01/11/2014 BP Systolic 110 mmHg BP Diastolic 72 mmHg Heart Rate 70 /min Body Temperature 98.8 F Respiratory Rate 16 /min Height 63 inches 5'3" Weight 208.00 lb BMI (Body Mass Index) 36.8 kg/m2 12/06/2013 BP Systolic 120 mmHg BP Diastolic 78 mmHg Heart Rate 84 /min Body Temperature 99.1 F Respiratory Rate 16 /min Height 63 inches 5'3" Weight 206.00 lb BMI (Body Mass Index) 36.5 kg/m2 09/20/2013 BP Systolic 122 mmHg BP Diastolic 80 mmHg Heart Rate 66 /min Body Temperature 97.5 F Respiratory Rate 16 /min Height 63 inches 5'3" Weight 206.38 lb BMI (Body Mass Index) 36.6 kg/m2 07/09/2013 BP Systolic 138 mmHg BP Diastolic 80 mmHg Heart Rate 68 /min Body Temperature 98.8 F Respiratory Rate 16 /min Height 63 inches 5'3" Weight 216.00 lb BMI (Body Mass Index) 38.3 kg/m2 01/08/2013 BP Systolic 100 mmHg BP Diastolic 68 mmHg Heart Rate 88 /min Body Temperature 99.3 F Height 63 inches 5'3" Weight 206.00 lb BMI (Body Mass Index) 36.5 kg/m2 10/24/2012 BP Systolic 120 mmHg BP Diastolic 82 mmHg Heart Rate 72 /min Body Temperature 97.7 F Height 63 inches 5'3" Weight 206.00 lb BMI (Body Mass Index) 36.5 kg/m2 09/25/2012 BP Systolic 130 mmHg BP Diastolic 80 mmHg Heart Rate 80 /min Body Temperature 98.0 F Respiratory Rate 16 /min Height 63 inches 5'3" Weight 202.00 lb BMI (Body Mass Index) 35.8 kg/m2 09/19/2012 BP Systolic 120 mmHg BP Diastolic 68 mmHg Heart Rate 96 /min Body Temperature 98.3 F Respiratory Rate 16 /min Height 63 inches 5'3" 05/04/2012 BP Systolic 108 mmHg BP Diastolic 68 mmHg Heart Rate 66 /min Body Temperature 98.2 F Height 63 inches 5'3" Weight 191.00 lb BMI (Body Mass Index) 33.8 kg/m2 01/13/2012 BP Systolic 110 mmHg BP Diastolic 60 mmHg Heart Rate 66 /min Body Temperature 98.3 F Respiratory Rate 18 /min Height 63 inches 5'3" Weight 176.00 lb BMI (Body Mass Index) 31.2 kg/m2 01/10/2012 BP Systolic 122 mmHg BP Diastolic 68 mmHg Heart Rate 80 /min Body Temperature 98.7 F Height 63 inches 5'3" Weight 181.00 lb BMI (Body Mass Index) 32.1 kg/m2 2011 BP Systolic 110 mmHg BP Diastolic 70 mmHg Heart Rate 64 /min Body Temperature 98.4 F Height 63 inches 5'3" Weight 200.00 lb BMI (Body Mass Index) 35.4 kg/m2 04/06/2011 BP Systolic 120 mmHg BP Diastolic 80 mmHg Heart Rate 68 /min Body Temperature 98.2 F Height 63 inches 5'3" Weight 195.00 lb BMI (Body Mass Index) 34.5 kg/m2 12/23/2010 BP Systolic 110 mmHg BP Diastolic 56 mmHg Heart Rate 88 /min Body Temperature 98.6 F Respiratory Rate 22 /min Height 63 inches 5'3" Weight 195.00 lb BMI (Body Mass Index) 34.5 kg/m2 12/11/2010 BP Systolic 104 mmHg BP Diastolic 60 mmHg Heart Rate 72 /min Body Temperature 99.2 F Height 63 inches 5'3" Weight 196.00 lb BMI (Body Mass Index) 34.7 kg/m2 10/12/2010 BP Systolic 120 mmHg BP Diastolic 80 mmHg Heart Rate 72 /min Body Temperature 97.9 F Height 63 inches 5'3" 08/24/2010 BP Systolic 110 mmHg BP Diastolic 64 mmHg Heart Rate 72 /min Body Temperature 98.6 F Respiratory Rate 16 /min Height 63 inches 5'3" Weight 197.00 lb BMI (Body Mass Index) 34.9 kg/m2 08/11/2010 BP Systolic 114 mmHg BP Diastolic 72 mmHg Heart Rate 78 /min Body Temperature 98.9 F Height 63 inches 5'3" Weight 197.00 lb BMI (Body Mass Index) 34.9 kg/m2 07/30/2010 BP Systolic 108 mmHg BP Diastolic 60 mmHg Heart Rate 66 /min Body Temperature 98.4 F Height 63 inches 5'3" Weight 196.00 lb BMI (Body Mass Index) 34.7 kg/m2 06/12/2010 BP Systolic 116 mmHg BP Diastolic 60 mmHg Heart Rate 66 /min Body Temperature 98.9 F Height 63 inches 5'3" Weight 189.00 lb BMI (Body Mass Index) 33.5 kg/m2 06/04/2010 BP Systolic 120 mmHg BP Diastolic 74 mmHg Heart Rate 60 /min Body Temperature 98.1 F Respiratory Rate 18 /min O2 % BldC Oximetry 98 % Height 63 inches 5'3" Weight 193.00 lb BMI (Body Mass Index) 34.2 kg/m2 05/28/2010 BP Systolic 122 mmHg BP Diastolic 60 mmHg Heart Rate 78 /min Body Temperature 99.7 F Height 63 inches 5'3" Weight 194.00 lb BMI (Body Mass Index) 34.4 kg/m2 05/13/2010 BP Systolic 112 mmHg BP Diastolic 64 mmHg Heart Rate 66 /min Body Temperature 98.9 F Height 63 inches 5'3" Weight 190.00 lb BMI (Body Mass Index) 33.7 kg/m2 05/04/2010 BP Systolic 122 mmHg BP Diastolic 62 mmHg Heart Rate 72 /min Height 63 inches 5'3" Weight 190.00 lb BMI (Body Mass Index) 33.7 kg/m2 03/19/2010 BP Systolic 124 mmHg BP Diastolic 70 mmHg Heart Rate 66 /min Body Temperature 98.2 F Height 62 inches 5'2" Weight 191.00 lb BMI (Body Mass Index) 34.9 kg/m2 02/17/2010 BP Systolic 118 mmHg BP Diastolic 78 mmHg Heart Rate 80 /min Body Temperature 98.2 F Height 62 inches 5'2" Weight 183.00 lb BMI (Body Mass Index) 33.5 kg/m2 06/11/2009 BP Systolic 118 mmHg BP Diastolic 70 mmHg Heart Rate 84 /min Body Temperature 99.8 F Height 62 inches 5'2" Weight 199.00 lb BMI (Body Mass Index) 36.4 kg/m2 04/30/2009 BP Systolic 108 mmHg BP Diastolic 60 mmHg Heart Rate 84 /min Body Temperature 98.5 F Respiratory Rate 20 /min Weight 199.00 lb 12/19/2008 BP Systolic 110 mmHg BP Diastolic 60 mmHg Heart Rate 66 /min Body Temperature 98.7 F Respiratory Rate 14 /min Weight 191.00 lb 09/30/2008 BP Systolic 108 mmHg BP Diastolic 60 mmHg Heart Rate 76 /min Body Temperature 98.1 F Respiratory Rate 16 /min O2 % BldC Oximetry 98 % Weight 192.00 lb 09/04/2008 BP Systolic 118 mmHg BP Diastolic 70 mmHg Heart Rate 80 /min Body Temperature 98.8 F Respiratory Rate 16 /min Weight 193.00 lb 03/26/2008 BP Systolic 90 mmHg BP Diastolic 56 mmHg Heart Rate 72 /min Body Temperature 98.9 F Height 62 inches 5'2" Weight 189.00 lb BMI (Body Mass Index) 34.6 kg/m2 11/09/2007 BP Systolic 100 mmHg BP Diastolic 60 mmHg Heart Rate 76 /min Body Temperature 99.0 F Respiratory Rate 13 /min Height 62 inches 5'2" 10/24/2007 BP Systolic 104 mmHg BP Diastolic 62 mmHg Heart Rate 76 /min Height 62 inches 5'2" Weight 179.00 lb BMI (Body Mass Index) 32.7 kg/m2 08/28/2007 BP Systolic 112 mmHg BP Diastolic 70 mmHg Heart Rate 72 /min Body Temperature 97.4 F Height 62 inches 5'2" Weight 180.00 lb BMI (Body Mass Index) 32.9 kg/m2 08/23/2007 BP Systolic 100 mmHg BP Diastolic 50 mmHg Heart Rate 84 /min Body Temperature 96.9 F Height 62 inches 5'2" Weight 185.00 lb BMI (Body Mass Index) 33.8 kg/m2 09/28/2006 BP Systolic 124 mmHg BP Diastolic 70 mmHg Heart Rate 76 /min Body Temperature 97.6 F Height 62 inches 5'2" 12/23/2005 BP Systolic 100 mmHg BP Diastolic 72 mmHg Heart Rate 80 /min Height 62 inches 5'2" Weight 180.00 lb BMI (Body Mass Index) 32.9 kg/m2 12/02/2005 Heart Rate 72 /min Body Temperature 97.7 F Weight 176.00 lb 08/17/2005 BP Systolic 100 mmHg BP Diastolic 74 mmHg Body Temperature 98.8 F Weight 170.00 lb 08/07/2005 BP Systolic 100 mmHg BP Diastolic 60 mmHg Heart Rate 76 /min Body Temperature 98.9 F Respiratory Rate 15 /min 06/25/2005 BP Systolic 110 mmHg BP Diastolic 70 mmHg Heart Rate 68 /min Body Temperature 98.2 F Weight 170.00 lb 01/28/2004 BP Systolic 98 mmHg BP Diastolic 54 mmHg Heart Rate 52 /min Weight 186.00 lb 08/21/2002 BP Systolic 112 mmHg BP Diastolic 70 mmHg Body Temperature 97.7 F 09/25/2001 BP Systolic 120 mmHg BP Diastolic 72 mmHg Weight 174.00 lb 07/10/2001 BP Systolic 122 mmHg BP Diastolic 70 mmHg Weight 174.00 lb 07/05/2001 BP Systolic 100 mmHg BP Diastolic 70 mmHg Heart Rate 64 /min Weight 171.00 lb 06/15/2000 BP Systolic 108 mmHg BP Diastolic 68 mmHg Heart Rate 80 /min Weight 162.00 lb 02/17/2000 BP Systolic 110 mmHg BP Diastolic 70 mmHg Heart Rate 80 /min 02/16/2000 Heart Rate 80 /min Body Temperature 97.6 F Weight 152.00 lb 09/26/1999 Body Temperature 97.1 F Weight 156.00 lb 05/18/1999 Body Temperature 98.7 F Weight 153.00 lb 02/09/1999 BP Systolic 102 mmHg BP Diastolic 52 mmHg Body Temperature 98.4 F Weight 148.00 lb 09/18/1998 Body Temperature 98.9 F Weight 160.00 lb 05/19/1998 Body Temperature 98.6 F 04/09/1998 Body Temperature 98.5 F Weight 165.00 lb 12/24/1997 Body Temperature 97.3 F Weight 162.00 lb 10/04/1997 BP Systolic 110 mmHg Large Cuff BP Diastolic 80 mmHg Large Cuff Height 62.00 inches 5'2" Weight 164.00 lb 09/09/1997 BP Systolic 108 mmHg BP Diastolic 64 mmHg Body Temperature 97.0 F Height 62.00 inches 5'2" Weight 166.50 lb 166 lbs. 8 ozs. Results Test Date Test Result H/L Range Note Laboratory test finding 01/02/2018 Inr (Fma) 2.7 2-3 Laboratory test finding 12/30/2017 Inr (Fma) 2.5 2-3 Laboratory test finding 12/28/2017 Serum Iron 41 g/dL Low 60-150 1 Comprehensive Metabolic Prof 12/28/2017 Sodium 144 mEq/L 134-149 Potassium 4.1 mEq/L 3.6-5.5 Chloride 99 mEq/L 94-112 Carbon Dioxide 26 mEq/L 21-32 Glucose 125 mg/dL High 70-105 2 BUN 20 mg/dL 6-26 Creatinine 0.7 mg/dL 0.6-1.4 BUN/Creat Ratio 28.6 CALC 8.0-36.0 Calcium 9.4 mg/dL 8.6-10.2 Total Protein 6.6 g/dL 6.4-8.3 Albumin 3.6 g/dL Low 3.8-5.5 3 Globulin 3.0 g/dL 2.0-4.8 A/G Ratio 1.2 CALC 0.6-2.3 Alk. Phosphatase 306 U/L High 30-110 4 Alt (SGPT) 19 U/L 7-35 Ast (Sgot) 15 U/L 5-34 Total Bilirubin 0.3 mg/dL 0.2-1.3 GFR Non- >60 ml/min/1.73m^ >=60 GFR >60 ml/min/1.73m^ >=60 CBC Electronic Fma 12/28/2017 WBC 9.2 x10^3/UL 4.0-10.0 RBC 3.07 x10^6/UL Low 3.93-6.00 HGB 9.0 g/dL Low 12.0-17.0 HCT 28 % Low 35-50 MCV 89.6 fL 80.0-95.0 MCH 29.3 pg 25.6-32.2 MCHC 32.7 g/dL 32.2-36.0 RDW-CV 13.0 % 11.6-14.4 PLT 362 x10^3/UL 163-400 MPV 10.0 fL 9.4-12.4 Jimi# 5.60 x10^3/UL 1.56-6.13 Lymph# 2.88 x10^3/UL 1.18-3.74 Ford# 0.34 x10^3/UL 0.24-0.82 Eos # 0.2 x10^3/UL 0.0-0.5 Baso # 0.07 x10^3/UL 0.01-0.08 Jimi% 60.7 % 34.0-70.0 Lymph % 31.2 % 20.0-52.0 Ford% 3.7 % Low 5.0-12.0 Eos% 2.1 % 0.7-7.0 Baso% 0.8 % 0.1-1.2 Laboratory test finding 12/28/2017 Inr (Fma) 1.4 Low 2-3 Laboratory test finding 12/26/2017 Inr (Fma) 1.1 Low 2.0-3.0 Inr/Protime 12/19/2017 Inr 1.11 High 0.77-1.02 Laboratory test finding 12/19/2017 Partial Thrombo 28.6 seconds 26.0- 36.3 Time PTT Urine Culture And 12/18/2017 Urine Culture SEE RESULT BELOW 5 Sensitivities Urinalysis Profile 12/18/2017 Urine Color Yellow Urine Appearance Cloudy Urine Specific [place] 1.014 1.010-1.030 Urine pH 5.0 5-9 Urine Urobilinogen Negative Negative Urine Ketones Negative Negative Urine Protein Negative Negative Urine Leukocytes 3+ Negative Urine Blood Negative Negative Urine Nitrite Negative Negative Urine Bilirubin Negative Negative Urine Glucose Negative Negative Urine White Blood Cell 3+(>20/hpf) Absent Urine Red Blood Cell Trace(0-2/hpf) Absent Urine Bacteria Absent Absent Urine Squamous Epithelial Cell Present Absent Urine Transitional Epithelial Present Absent Laboratory test finding 12/18/2017 C Reactive Protein 393.83 mg/L High &lt ; 5.00 6 Comp Metabolic Panel 12/18/2017 Sodium 132 mmol/L Low 139-145 Potassium 3.5 mmol/L 3.5-5.0 Chloride 102 mmol/L 101-111 Co2 Carbon Dioxide 21 mmol/L Low 22-32 Anion Gap 9 mmol/L 2-11 Glucose 134 mg/dL High 70-100 Blood Urea Nitrogen 14 mg/dL 6-24 Creatinine 0.68 mg/dL 0.51-0.95 BUN/Creatinine Ratio 20.6 High 8-20 Calcium 8.4 mg/dL Low 8.6-10.3 Total Protein 6.3 g/dL Low 6.4-8.9 Albumin 3.0 g/dL Low 3.2-5.2 Globulin 3.3 g/dL 2-4 Albumin/Globulin Ratio 0.9 Low 1-3 Total Bilirubin 0.50 mg/dL 0.2-1.0 Alkaline Phosphatase 288 U/L High 34-104 Alt 13 U/L 7-52 Ast 12 U/L Low 13-39 Egfr Non- 92.0 >60 Egfr 118.3 >60 7 Laboratory test finding 12/18/2017 Lactic Acid 0.8 mmol/L 0.5-2.0 8 CBC Auto Diff 12/18/2017 White Blood Count 11.2 10^3/uL High 3.5-10.8 Red Blood Count 3.20 10^6/uL Low 4.0-5.4 Hemoglobin 9.5 g/dL Low 12.0-16.0 Hematocrit 29 % Low 35-47 Mean Corpuscular Volume 89 fL 80-97 Mean Corpuscular Hemoglobin 30 pg 27-31 Mean Corpuscular HGB Conc 33 g/dL 31-36 Red Cell Distribution Width 13 % 10.5-15 Platelet Count 265 10^3/uL 150-450 Mean Platelet Volume 9.2 um3 7.4-10.4 Abs Neutrophils 8.6 10^3/uL High 1.5-7.7 Abs Lymphocytes 1.6 10^3/uL 1.0-4.8 Abs Monocytes 0.7 10^3/uL 0-0.8 Abs Eosinophils 0.3 10^3/uL 0-0.6 Abs Basophils 0.1 10^3/uL 0-0.2 Abs Nucleated RBC 0 10^3/uL Granulocyte % 76.6 % 38-83 Lymphocyte % 14.5 % Low 25-47 Monocyte % 5.9 % 0-7 Eosinophil % 2.3 % 0-6 Basophil % 0.7 % 0-2 Nucleated Red Blood Cells % 0 Laboratory test finding 05/31/2017 Hemoglobin A1c (Fma) 5.2 % 4.1-5.7 Comprehensive Metabolic Prof 05/23/2017 Sodium 137 mEq/L 134-149 Potassium 4.3 mEq/L 3.6-5.5 Chloride 99 mEq/L 94-112 Carbon Dioxide 25 mEq/L 21-32 Glucose 117 mg/dL High 70-105 BUN 16 mg/dL 6-26 Creatinine 0.6 mg/dL 0.6-1.4 BUN/Creat Ratio 26.7 CALC 8.0-36.0 Calcium 8.7 mg/dL 8.6-10.2 Total Protein 7.3 g/dL 6.4-8.3 Albumin 4.5 g/dL 3.8-5.5 Globulin 2.8 g/dL 2.0-4.8 A/G Ratio 1.6 CALC 0.6-2.3 Alk. Phosphatase 72 U/L 30-110 Alt (SGPT) 14 U/L 7-35 Ast (Sgot) 16 U/L 5-34 Total Bilirubin 0.3 mg/dL 0.2-1.3 GFR Non- >60 ml/min/1.73m^ >=60 GFR >60 ml/min/1.73m^ >=60 Lipid Profile 05/23/2017 Cholesterol 212 mg/dL High 120-200 Triglycerides 238 mg/dL High 30-200 HDL Cholesterol 59 mg/dL 30-85 LDL (Calculated) 105 CALC 0-129 VLDL Cholesterol 48 mg/dL 0-50 HDL Risk Factor 3.6 CALC 0.0-4.4 Complete Blood Count 05/23/2017 WBC 8.8 x10^3/UL 3.6-9.6 RBC 4.17 x10^6/UL 3.90-5.70 HGB 13.0 g/dL 12.1-17.2 HCT 37 % 36-50 MCV 89.0 fL 82.2-97.4 MCH 31.3 pg 27.6-33.3 MCHC 35.3 g/dL 33.0-35.5 RDW 12.8 % 11.6-13.7 PLT 252 x10^3/UL 150-400 MPV 8.8 fL 7.4-10.4 Gran # 5.4 x10^3/UL 1.5-7.2 Lymph# 3.1 x10^3/UL 0.7-4.9 Ford# 0.3 x10^3/UL 0.1-0.9 Gran % 60.2 % 42.2-75.2 Lymph % 35.7 % 20.5-51.1 Ford% 4.1 % 1.7-9.3 Laboratory test finding 05/23/2017 TSH 3.44 mIU/L 0.50-6.00 Comprehensive Metabolic Prof 05/21/2016 Sodium 140 mEq/L 134-149 Potassium 4.7 mEq/L 3.6-5.5 Chloride 102 mEq/L 94-112 Carbon Dioxide 26 mEq/L 21-32 Glucose 108 mg/dL High 70-105 9 BUN 15 mg/dL 6-26 Creatinine 0.7 mg/dL 0.6-1.4 BUN/Creat Ratio 21.4 CALC 8.0-36.0 Calcium 8.6 mg/dL 8.6-10.2 Total Protein 7.0 g/dL 6.4-8.3 Albumin 4.2 g/dL 3.8-5.5 Globulin 2.8 g/dL 2.0-4.8 A/G Ratio 1.5 CALC 0.6-2.3 Alk. Phosphatase 68 U/L 30-110 Alt (SGPT) 13 U/L 7-35 Ast (Sgot) 17 U/L 5-34 Total Bilirubin 0.4 mg/dL 0.2-1.3 GFR Non- >60 ml/min/1.73m^ >=60 GFR >60 ml/min/1.73m^ >=60 Lipid Profile 05/21/2016 Cholesterol 189 mg/dL 120-200 Triglycerides 190 mg/dL 30-200 HDL Cholesterol 54 mg/dL 30-85 LDL (Calculated) 97 CALC 0-129 VLDL Cholesterol 38 mg/dL 0-50 HDL Risk Factor 3.5 CALC 0.0-4.4 Complete Blood Count 05/21/2016 WBC 7.1 x10^3/UL 3.6-9.6 RBC 4.21 x10^6/UL 3.90-5.70 HGB 13.0 g/dL 12.1-17.2 HCT 37 % 36-50 MCV 89.0 fL 82.2-97.4 MCH 30.9 pg 27.6-33.3 MCHC 34.9 g/dL 33.0-35.5 RDW 13.4 % 11.6-13.7 PLT 195 x10^3/UL 150-400 MPV 8.3 fL 7.4-10.4 Gran # 4.4 x10^3/UL 1.5-7.2 Lymph# 2.5 x10^3/UL 0.7-4.9 Ford# 0.2 x10^3/UL 0.1-0.9 Gran % 61.5 % 42.2-75.2 Lymph % 35.5 % 20.5-51.1 Ford% 3.0 % 1.7-9.3 Laboratory test finding 05/21/2016 TSH 2.41 mIU/L 0.50-6.00 10 Complete Blood Count 07/16/2015 WBC 10.6 x10^3/UL High 3.6-9.6 RBC 4.01 x10^6/UL 3.90-5.70 HGB 11.9 g/dL Low 12.1-17.2 HCT 35 % Low 36-50 MCV 88.0 fL 82.2-97.4 MCH 29.5 pg 27.6-33.3 MCHC 33.5 g/dL 33.0-35.5 RDW 13.0 % 11.6-13.7 PLT 275 x10^3/UL 150-400 MPV 8.8 fL 7.4-10.4 Gran # 6.0 x10^3/UL 1.5-7.2 Lymph# 4.2 x10^3/UL 0.7-4.9 Ford# 0.4 x10^3/UL 0.1-0.9 Gran % 56.5 % 42.2-75.2 Lymph % 39.7 % 20.5-51.1 Ford% 3.8 % 1.7-9.3 Comprehensive Metabolic Prof 07/16/2015 Sodium 138 mEq/L 134-149 Potassium 4.4 mEq/L 3.6-5.5 Chloride 98 mEq/L 94-112 Carbon Dioxide 26 mEq/L 21-32 Glucose 91 mg/dL 70-105 BUN 15 mg/dL 6-26 Creatinine 0.6 mg/dL 0.6-1.4 BUN/Creat Ratio 25.0 CALC 8.0-36.0 Calcium 8.8 mg/dL 8.6-10.2 Total Protein 7.2 g/dL 6.4-8.3 Albumin 4.0 g/dL 3.8-5.5 Globulin 3.2 g/dL 2.0-4.8 A/G Ratio 1.3 CALC 0.6-2.3 Alk. Phosphatase 118 U/L High 30-110 Alt (SGPT) 42 U/L High 7-35 Ast (Sgot) 27 U/L 5-34 Total Bilirubin 0.3 mg/dL 0.2-1.3 GFR Non- >60 ml/min/1.73m^ >=60 GFR >60 ml/min/1.73m^ >=60 Lipid Profile 07/16/2015 Cholesterol 220 mg/dL High 120-200 Triglycerides 238 mg/dL High 30-200 HDL Cholesterol 37 mg/dL 30-85 LDL (Calculated) 135 CALC High 0-129 VLDL Cholesterol 48 mg/dL 0-50 HDL Risk Factor 5.9 CALC High 0.0-4.4 Laboratory test finding 07/16/2015 TSH 1.62 mIU/L 0.50-6.00 11 Influenza A&B-fma 07/08/2015 Influenza A neg Influenza B neg Laboratory test finding 01/21/2015 Human Papilloma Virus Rna Negative Negative 12 Influenza A&B-fma 09/13/2014 Influenza A NEGATIVE Influenza B NEGATIVE Laboratory test 05/22/2014 Surgical Pathology RUN DATE: finding <SEE NOTE> CBC Auto Diff 11/01/2012 White Blood Count 9.0 10^3/uL 4.8-10.8 Red Blood Count 4.23 10^6/uL 4.0-5.4 Hemoglobin 12.2 g/dL 12.0-16.0 Hematocrit 38 % 35-47 Mean Corpuscular Volume 89 fL 80-97 Mean Corpuscular Hemoglobin 29 pg 27-31 Mean Corpuscular HGB Conc 33 g/dL 31-36 Red Cell Distribution Width 14 % 10.5-15 Platelet Count 194 10^3/uL 150-450 Mean Platelet Volume 11 um3 High 7.4-10.4 Abs Neutrophils 5.0 10^3/uL 1.5-7.7 Abs Lymphocytes 3.6 10^3/uL 1.0-4.8 Abs Monocytes 0.3 10^3/uL 0-0.8 Abs Eosinophils 0 10^3/uL 0-0.6 Abs Basophils 0.1 10^3/uL 0-0.2 Abs Nucleated RBC 0.01 10^3/uL Granulocyte % 55.4 % 38-83 Lymphocyte % 39.9 % 25-47 Monocyte % 3.6 % 1-9 Eosinophil % 0.5 % 0-6 Basophil % 0.6 % 0-2 Nucleated Red Blood Cells % 0.1 Type & Screen 11/01/2012 Patient Blood Type A Negative Antibody Screen NEGATIVE Laboratory test finding 11/01/2012 Serum Negative Negative 14 CBC Auto Diff 10/20/2012 White Blood Count 6.6 10^3/uL 4.8-10.8 Red Blood Count 4.19 10^6/uL 4.0-5.4 Hemoglobin 12.7 g/dL 12.0-16.0 Hematocrit 36 % 35-47 Mean Corpuscular Volume 86 fL 80-97 Mean Corpuscular Hemoglobin 30 pg 27-31 Mean Corpuscular HGB Conc 35 g/dL 31-36 Red Cell Distribution Width 14 % 10.5-15 Platelet Count 202 10^3/uL 150-450 Mean Platelet Volume 10 um3 7.4-10.4 Abs Neutrophils 3.7 10^3/uL 1.5-7.7 Abs Lymphocytes 2.5 10^3/uL 1.0-4.8 Abs Monocytes 0.3 10^3/uL 0-0.8 Abs Eosinophils 0.1 10^3/uL 0-0.6 Abs Basophils 0.1 10^3/uL 0-0.2 Abs Nucleated RBC 0.01 10^3/uL Granulocyte % 56.0 % 38-83 Lymphocyte % 37.6 % 25-47 Monocyte % 4.0 % 1-9 Eosinophil % 1.6 % 0-6 Basophil % 0.8 % 0-2 Nucleated Red Blood Cells % 0.1 Laboratory test finding 10/20/2012 Vitamin B1 Whole Blood 166 nmol/L 70- 180 15 Vitamin E Level 10.6 mg/L 5.5 - 17.0 16 Comp Metabolic Panel 10/20/2012 Sodium 136 mmol/L 133-145 Potassium 4.0 mmol/L 3.5-5.0 Chloride 102 mmol/L 101-111 Co2 Carbon Dioxide 26.0 mmol/L 22-32 Anion Gap 8.0 mmol/L 2-11 Glucose 107 mg/dL High 70-100 Blood Urea Nitrogen 9 mg/dL 6-24 Creatinine 0.60 mg/dL 0.50-1.40 BUN/Creatinine Ratio 15.0 8-20 Calcium 9.3 mg/dL 8.1-9.9 Total Protein 6.5 g/dL 6.2-8.1 Albumin 3.9 g/dL 3.6-5.4 Globulin 2.6 g/dL 2-4 Albumin/Globulin Ratio 1.5 1-3 Total Bilirubin 0.7 mg/dL 0.4-1.5 Alkaline Phosphatase 91 U/L 30-110 Alt 63 U/L High 14-54 Ast 50 U/L High 12-42 Egfr Non- 108.6 >60 Egfr 139.7 >60 17 Iron & Iron Binding Capacity 10/20/2012 Iron 74 g/dL 28-170 Unsaturated Iron Binding 302 g/dL Total Iron Binding Capacity 376 g/dL 250-450 % Iron Saturation 20 % 15-55 Laboratory test finding 10/20/2012 Ferritin 34 ng/mL 11-307 Vitamin B12 604 pg/mL 180-914 Folate > 25.0 ng/mL High 2-16 TSH (Thyroid Stimulating Horm) 2.00 miu/mL 0.34-5.60 Cortisol 8.1 g/dL 18 Vitamin D, 25 Hydroxy 10/20/2012 25-Hydroxy Vitamin D2 5.4 ng/mL 25-Hydroxy Vitamin D3 25 ng/mL 25-Hydroxy Vitamin D Total 30 ng/mL 19 Laboratory test finding 2011 Throat - Beta Strep Fma negative Comprehensive Metabolic Prof 05/11/2010 Albumin 4.9 g/dL 3.8-5.5 Alk. Phos. 102 U/L 30-110 Alt (SGPT) 33 U/L 7-35 Ast (Sgot) 24 U/L 5-34 BUN 12 mg/dL 6-26 Calcium 9.2 mg/dL 8.6-10.2 Chloride 99 mEq/L 94-112 Creatinine 0.7 mg/dL 0.6-1.4 Carbon Dioxide 27 mEq/L 21-32 Glucose 99 mg/dL 70-105 Sodium 140 mEq/L 134-149 Total Bilirubin 0.6 mg/dL 0.2-1.3 Total Protein 7.3 g/dL 6.3-8.1 Potassium 4.6 mEq/L 3.6-5.5 Globulin 2.5 g/dL 2.0-4.8 A/G Ratio 2.0 Calc 0.6-2.2 BUN/Creat Ratio 15.8 Calc 8.0-36.0 Laboratory test finding 05/11/2010 Free T4 0.80 ng/dL 0.75-1.54 TSH 1.46 mIU/L 0.50-6.00 Lipid Profile 05/11/2010 Cholesterol 215 mg/dL High 120-200 HDL 45 mg/dL 30-85 Triglycerides 204 mg/dL High 30-200 HDL Risk Factor 4.8 CALC 4.2-7.0 LDL (Calculated) 129 CALC 0-129 VLDL (Calculated) 41 mg/dL 0-50 CBC (Fma) 05/11/2010 WBC 7.9 3.6-9.6 RBC 4.38 3.90-5.70 Hemoglobin (Fma/CMC/CTX) 12.9 g/dL 12.1 - 17.2 Hematocrit (Fma/CMC/CTX) 37.6 % 36.1 - 50.3 Mean Corpuscular Vol 86 82.2-97.4 Mean Corpuscular Hemoglobin 29.5 27.6-33.3 Mean Corpuscular Hemo Concen 34.4 33.0-36.0 Platelets 232 10^3/ul 150-400 Lymph% 32.7 20.5-51.1 Mixed% 3.0 Neutrophils % 64.3 RDW 11.8 11.6-13.7 Mean Platelet Volume 9.0 7.4-10.4 Laboratory test finding 12/19/2008 Quickstrep NEGATIVE Negative Throat - Beta Strep Fma neg @48 hrs Laboratory test finding 03/26/2008 Quickstrep POSITIVE Negative Ua - Non Micro (Fma) 10/24/2007 Appearance CLEAR Color YELLOW Glucose NEG Bilirubin NEG Ketones NEG SP Grav 1.025 Blood NEG PH 6.0 Protein NEG Urobil 1.0 Nitrite NEG Leukocytes (Fma/CMC/Centrex) NEG Laboratory test finding 08/23/2007 Quickstrep NEGATIVE Negative Throat - Beta Strep Fma NEGATIVE @24HRS Laboratory test finding 12/02/2005 Throat Culture NEGATIVE @ 48HRS Laboratory test finding 08/07/2005 Quickstrep NEGATIVE Negative Laboratory test finding 07/10/2002 , Serum NEGATIVE Free T4/TSH Profile ([facility]) 07/13/2001 Free T4 0.89 ng/dL 0.7-1.55 TSH 2.27 0.4-4.2 Laboratory test finding 07/10/2001 FSH 2.9 mIU/ml 20 LH 3.4 mIU/ml 21 Prolactin 13.3 ng/ml 1.4 - 24.2 1 RESULTS VERIFIED BY REPEAT ANALYSIS 2 consistent w/ previous results 3 RESULTS VERIFIED BY REPEAT ANALYSIS 4 RESULTS VERIFIED BY REPEAT ANALYSIS 5 SEE RESULT BELOW Name: ALEXANDREA ALBERT Raul : [address]: Audrey Ennis MD Acct: [id number] Unit: [id number] AGE: 47 Location: ICU [id number] Re12/19/17 SEX: F Status: ADM IN SPEC: [id number] ZAYNAB: 12/18/17-[address]: Doug RO REQ: [id number] RECD: 12/19/17 STATUS: COMP OT DR: Bubba Ortega MD _ SOURCE: URINE [facility]: ORDERED: Urine Culture Procedure Result Reported Site Urine Culture Final 12/20/17- 1125 ML No Growth (<1,000 CFU/mL) * ML - Main Lab . END OF REPORT DEPARTMENT OF PATHOLOGY, [address] [place] [address] Paul Davis M.D. Director [facility] # [id number] 6 Acute inflammation: >10.00 7 Because ethnic data is not always readily available, this report includes an eGFR for both -Americans and non- Americans. The National Kidney Disease Education Program (NKDEP) does not endorse the use of the MDRD equation for patients that are not between the ages of 18 and 70, are , have extremes of body size, muscle mass, or nutritional status, or are non- or non-. According to the National Kidney Foundation, irrespective of diagnosis, the stage of the disease is based on the level of kidney function: Stage Description GFR(mL/min/1.73 m(2)) 1 Kidney damage with normal or decreased GFR 90 2 Kidney damage with mild decrease in GFR 60-89 3 Moderate decrease in GFR 30-59 4 Severe decrease in GFR 15-29 5 Kidney failure <15 (or dialysis) 8 [facility] Severe Sepsis and Septic Shock Management Bundle Measure requires all lactic acids initially measuring >2.0 mmol/L be repeated. 9 RESULTS VERIFIED BY REPEAT ANALYSIS 10 FASTING 11 FASTING 12 The high-risk HPV types detected by the assay include: 16, 18, 31, 33, 35, 39, 45, 51, 52, 56, 58, 59, 66, and 68. 13 RUN DATE: 05/24/14 [facility] LAB LIVE PAGE 1 RUN TIME: [address] [place] [id number] Specimen Inquiry Name: ALEXANDREA ALBERT : [address]: Keila Etienne MD Acct: [id number] Unit: [id number] AGE: 43 Location: [facility] Re05/22/14 SEX: F Status: REG REF SPEC: [id number] ZAYNAB: 05/22/14-[address]: Keila Etienne MD REQ: [id number] RECD: 05/22/140683 STATUS: SOUT _ ORDERED: LEVEL III FINAL DIAGNOSIS Skin, under left breast, biopsies: Achrochordons. CLINICAL HISTORY No history given GROSS DESCRIPTION The specimen is received in formalin labeled Alexandrea Albert, No Source Identified with a requisition labeled Under Left Breast, and consists of five smith-white wrinkled polypoid portions of skin ranging from 0.2 x 0.1 x 0.1 cm. to 0.5 x 0.4 x 0.3 cm. The two larger tissues are inked at the base and the specimen is submitted entirely in cassettes A and B to include larger tissue in cassette A. Signed (signature on file) Senia Dumont MD [id number] END OF REPORT * ML=Testing performed at [facility] Lab DEPARTMENT OF PATHOLOGY, [address] [place] [address] Paul Davis M.D. Director [facility] # [id number] 14 This test detects intact HCG only and is indicated for the early detection of . 15 Test Performed by: [facility] [place] [address] Project/Production Manager Imaging: Susy Cedeno, Ph.D. 16 Test Performed by: [place] [address] Project/Production Manager Imaging: Susy Cedeno, Ph.D. 17 Because ethnic data is not always readily available, this report includes an eGFR for both -Americans and non- Americans. The National Kidney Disease Education Program (NKDEP) does not endorse the use of the MDRD equation for patients that are not between the ages of 18 and 70, are , have extremes of body size, muscle mass, or nutritional status, or are non- or non-. According to the National Kidney Foundation, irrespective of diagnosis, the stage of the disease is based on the level of kidney function: Stage Description GFR(mL/min/1.73 m(2)) 1 Kidney damage with normal or decreased GFR 90 2 Kidney damage with mild decrease in GFR 60-89 3 Moderate decrease in GFR 30-59 4 Severe decrease in GFR 15-29 5 Kidney failure <15 (or dialysis) 18 AM Cortisol 8.7-22.4 PM Cortisol Less than 10 19 -- REFERENCE VALUE -- 25-HYDROXY D TOTAL (D2+D3) Optimum levels in the normal population are 25-80 Test Performed by: [address] [address] Project/Production Manager Imaging: Will Lamb III, M.D. 20 Follicular Phase: 4.0-13.0 mIU/mL Ovulatory Peak: 5.0-22.0 mIU/mL Luteal Phase: 2.0-13.0 mIU/mL Post-Menopausal: 20.0-138.0mIU/mL MALE: 1.0-8.0 mIU/mL . 21 Follicular Phase: 1.0-18.0 mIU/ml Ovulatory Peak: 24.0-105.0mIU/ml Luteal Phase: 0.4-20.0 mIU/ml Post-Menopausal: 15.0-62.0 mIU/ml MALES: 2.0-12.0 mIU/ml . Procedures Date CPT Code Description Status 01/02/2018 32357 Finger Or Heel Stick Completed 12/30/2017 74199 Finger Or Heel Stick Completed 12/26/2017 46818 Finger Or Heel Stick Completed 11/14/2017 Mammogram Completed 05/31/2017 89170 [facility] SHQ Completed 05/31/2017 40552 Finger Or Heel Stick Completed 10/28/2016 Mammogram Completed 05/27/2016 19055 CPHL SHQ Completed 07/28/2015 Mammogram Completed 05/22/2014 19366 Remove Skin Tags Up To 15 Completed 08/03/2012 Mammogram Completed 04/06/2011 65307 Remove Skin Tags Up To 15 Completed 07/05/2001 30708 Remove Skin Tags Up To 15 Completed 03/18/1999 17286 Remove Skin Tags Up To 15 Completed 11/10/1970 44640 Injection Subcutaneous Or Intramuscular Completed Encounters Type Date Location Provider CPT E/M Dx Office Visit 12/28/2017 3:00p [facility] Keila Ortega M.D. 80329 Z79.01 I26.99 D64.9 L03.311 F41.9 Office Visit 09/13/2017 11:20a [facility] Keila Ortega M.D. 62248 R41.840 F41.9 Office Visit 03/21/2017 10:40a [facility] Keila Ortega M.D. 31801 R41.840 F41.9 E66.09 Office Visit 01/21/2017 11:15a [facility] TICO Canas 28383 R05 R53.83 F34.1 Office Visit 11/24/2016 9:00a [facility] Keila Ortega M.D. 72533 R41.840 F41.9 Office Visit 02/10/2016 9:30a [facility] Office TICO Canas 72506 R41.840 E66.09 Office Visit 12/31/2015 3:30p [facility] TICO Canas 44500 R41.840 F34.1 E66.09 Office Visit 07/08/2015 11:40a [facility] Keila Ortega M.D. 73705 J06.9 E66.09 Z12.31 Office Visit 05/02/2015 2:45p [facility] Office Senia Benito [facility] 78248 J01.90 R05 Office Visit 01/23/2015 11:00a [facility] Russell Roldan M.D. 44366 724.2 354.0 Office Visit 09/13/2014 2:15p [place] [address] 465.9 788.33 380.4 Office Visit 05/22/2014 9:40a [facility] Keila Ortega M.D. 62805 701.9 757.39 Office Visit 01/11/2014 3:10p [facility] Willie Piper M.D. 51844 461.9 Office Visit 12/06/2013 4:30p [facility] [place] [address] 466.0 Office Visit 09/20/2013 8:00a [facility] Willie Piper M.D. 18573 354.0 Office Visit 07/09/2013 1:00p [facility] Jen NunezAMADEO 65122 354.0 Office Visit 01/08/2013 1:20p [facility] Willie Piper M.D. 45540 V70.0 300.00 477.9 311 Office Visit 10/24/2012 9:10a [facility] Willie Piper M.D. 68735 724.2 729.2 Office Visit 09/25/2012 2:10p [facility] Ron Hightower M.D. 69072 724.5 Office Visit 09/19/2012 1:40p [facility] Ron Hightower M.D. 14784 724.3 Office Visit 05/04/2012 1:10p [facility] Willie Piper M.D. 23905 373.00 Office Visit 01/13/2012 11:00a [facility] Willie Piper M.D. 24623 724.5 Office Visit 01/10/2012 9:40a [facility] Willie Piper M.D. 25209 724.5 300.00 311 477.9 Office Visit 2011 1:10p [facility] Willie Piper M.D. 31563 724.5 729.2 465.9 Office Visit 04/06/2011 3:00p [facility] Geetha Bonds 07684 782.9 Office Visit 12/23/2010 2:30p [facility] Geetha Bonds 69232 V70.5 Office Visit 12/11/2010 2:10p [facility] Willie Piper M.D. 04760 922.31 Office Visit 10/12/2010 1:10p [facility] Office Willie Pipre M.D. 97160 381.81 381.10 Office Visit 08/24/2010 9:45a [facility] Office Naman BondsC 82592 466.0 381.81 Office Visit 08/11/2010 9:30a [facility] Geetha Bonds 35479 465.9 466.0 Office Visit 07/30/2010 9:00a [facility] Willie Piper M.D. 75568 300.00 311 Office Visit 06/12/2010 10:10a [facility] Willie Piper M.D. 06856 466.0 461.9 300.00 311 Office Visit 06/04/2010 10:10a [facility] Willie Piper M.D. 24831 466.0 708.0 Office Visit 05/28/2010 10:00a [facility] Willie Piper M.D. 65000 461.9 300.00 311 724.2 Office Visit 05/13/2010 11:10a [facility] Saturnino Vega M.D. 42246 461.9 V06.5 Office Visit 05/04/2010 3:20p [facility] Willie Piper M.D. 31993 V70.0 300.00 311 780.79 278.00 845.09 Office Visit 03/19/2010 10:00a [facility] Office Willie Piper M.D. 17555 300.00 311 110.4 Office Visit 02/17/2010 2:20p [facility] Willie Piper M.D. 48729 300.00 110.4 311 Office Visit 06/11/2009 10:45a [facility] TICO Suarez 94614 388.70 Office Visit 04/30/2009 1:40p [facility] Office Luis Eduardo Altman M.D. 04137 386.11 Office Visit 12/19/2008 2:00p [facility] Lele Ram-C 32352 462 388.70 Office Visit 09/30/2008 2:30p [facility] Luis Eduardo Altman M.D. 09260 460 Office Visit 09/04/2008 3:30p [facility] Saturnino Vega M.D. 86545 382.9 Office Visit 03/26/2008 1:00p [facility] Lele Bonds-C 56134 034.0 389.9 Office Visit 11/09/2007 7:45p [facility] Office Lele Ram-C 58090 995.3 Office Visit 10/24/2007 10:00a [facility] Lele Bonds-C 35636 V70.5 692.9 Office Visit 08/28/2007 2:30p [facility] Office Milly Guardado [employer]ILY [employer] MANAGEMENT SPECIALIST 82004 461.9 Office Visit 08/23/2007 3:00p [facility] Doziernp-C 56209 462 Office Visit 09/28/2006 8:10p [facility] Office Ron Hightower M.D. 94680 465.9 382.9 Office Visit 12/23/2005 3:30p [facility] Milly Guardado FAMILY RESOURCE MANAGEMENT SPECIALIST 95900 V70.5 Office Visit 12/02/2005 11:00a [facility] Milly Guardado FAMILY RESOURCE MANAGEMENT SPECIALIST 70653 054.9 465.9 Office Visit 08/17/2005 3:30p [facility] Péreznp-C 40206 381.02 Office Visit 08/07/2005 9:00a [facility] Péreznp-C 99156 718.86 465.9 462 Office Visit 06/25/2005 9:00a [facility] Office Jose Miguel Barron M.D. 71955 486 Office Visit 01/28/2004 1:30p [facility] Doziernp-C 95584 724.3 Office Visit 08/21/2002 3:15p [facility] Shanice Drew Macinp-C 18255 558.9 Office Visit 09/25/2001 3:40p [facility] Luis Eduardo Altman M.D. 87660 Office Visit 07/10/2001 2:10p [facility] Luis Eduardo Altman M.D. 30125 Office Visit 07/05/2001 10:00a [facility] Luis Eduardo Altman M.D. 27738 Office Visit 06/15/2000 11:00a [facility] Office Matt Power M.D. 07992 Plan of Care Future Appointment(s):01/09/2018 10:00 am - Keila Ortega M.D. at [facility] Nzcnet1403/30/2018 2:40 pm - Willie Piper M.D. at [facility] Vvjffq7701/06/2018 - Gloria Jessica, NPJ30.9 Allergic rhinitis, unspecifiedNew Medication:Zyrtec -D Allergy & Congestion 5-120 mgComments:You can also try nasal lavage and/ or nasal saline. There is nothing to suggest bacterial infection, and it doesn' t sound like viral infection either. Call [facility] if condition changes/worsens in any wayI26.99 Other pulmonary embolism without acute cor pulmonaleComments: Continue juhgihvsM33.01 senior care (current) use of zkhiuhlwqcfxtjV04.9 Anemia, unspecifiedComments:continue ironL03.311 Cellulitis of abdominal wallComments:I believe this is continuing to improve, no signs of recurrence or worsening of surgical infection. Please call or come back at any time if you have fever or worsening pain.
--- OUTSIDE RECORDS SUMMARY | 2018-01-10 11:43 | XMS REPORT ---
:1970 External Reference #:[id number] Author Organization [facility] Address [address] [place] [address] Phone [phone] Care Team Providers Name Role Phone Keila Ortega M.D. Care Team Information Energy Efficiency Engineer Unavailable Keila Ortega M.D. Primary Care Physician Unavailable Payers Type Date Identification Numbers Payment Provider Subscriber Health Maintenance Effective: Policy Number: [facility] ([facility] 07/25/2012 [id number] [employer] Group Number: [id number] [id number] Group Name: [facility] [place] [address] PayID: [id number] Problems Date Description Provider Status Onset: 01/10/2012 [...] Input No immediate family members with early AZ or CVA. No immediate family history of colon, breast, ovarian, cervical or prostate cancer. Social History Type Date Description Comments Marital Status Patient is Living Situation Lives with spouse, 2 children Diet Diet is healthy and well balanced Occupation [employer] Cigarette Use Nonsmoker ETOH Use Denies alcohol use Smoking Nonsmoker Exercise Type/Frequency Exercises sporadically Current Allergies, Adverse Reactions, Alerts Date Description Reaction Status Severity Comments 08/17/2005 Codeine active 06/12/2010 Tessalon active hives Medications Medication Date Status Form Strength Qnty SIG Indications Ordering Provider Citalopram 09/13 Active Tablets 20mg 90tab Take 1 Keila Hydrobromide s Tablets [place], By Mouth M.D. Every Day Acetaminophen ER Active Tablets ER 650mg 1 by Unknown /0000 mouth every 4 hr prn pain or fever Maalox Max Active Suspension 400-400-4 30ml q 2 /0000 0mg/5ML hr prn dyspepsia Buspirone HCL Active Tablets 10mg 1 po tid / prn anxiety Colace Active Capsules 100mg 1 by Unknown /0000 mouth twice daily Doxycycline Active Capsules 100mg take one Unknown Monohydrate /0000 tablet by mouth twice a dayx 6 days Enoxaparin Sodium Active Solution 100mg/ml 10ml 90 units sq twice [place], a day as M.D. needed until inr above 2 for 1 day as which point it will be stopped. Ferrous Gluconate Active Tablets 324(38Fe) 1 po bid mg Omeprazole Active Capsules 20mg 1 po bid Oxycodone HCL Active Tablets 5mg 1 by mouth every 4 hours as needed for pain Miralax Active Packet 3350NF 17 grams every day with large glass water constipat ion Warfarin Sodium Active Tablets 5mg 1 by mouth every day Phentermine HCL 05/31 Hx Capsules 37.5mg 90cap 1 by s mouth Jordan, - every day M.D. 09/13 Citalopram 03/21 Hx Tablets 20mg 90tab take 1 Keila bromid s tablets Jordan, - by mouth M.D. 09/13 Phentermine HCL 03/21 Hx Capsules 15mg 30cap 1 tab by s mouth Jordan, - every M.D. 05/31 morning Bupropion HCL ER 03/09 Hx Tablets ER 150mg 30tab Take One Keila (XL) 24HR s Tablet By Jordan, - Mouth M.D. 03/21 Citalopram 01/21 Hx Tablets 10mg 180ta Take 1 To bs 2 Tablets Thong, - Daily [employer] 03/21 Azithromycin 01/21 Hx Tablets 250mg 9tabs 2 tabs by J01.90 mouth Thong, - today, 2 [employer] 01/27 tabs by /2016 mouth tomorrow, then 1 tab by mouth daily x 5 days Medrol 01/21 Hx Tablets 4mg 1tabs as directed Thong, - [employer] 01/21 Bupropion HCL ER 11/24 Hx Tablets ER 150mg 30tab 1 by F41.9 Keila (XL) 24HR s mouth Jordan, - every day M.D. 01/21 Adderall XR 12/30 Hx Caps ER 10mg 30cap take one R41.840 24HR s capsule Jordan, - by mouth M.D. 12/27 once daily maximum daily dose=1 capsule Levofloxacin 07/21 Hx Tablets 500mg 5tabs 1 by mouth [place], - every day M.D. 12/30 for days Estrogen 07/08 Hx 1.5 1 po qd - 12/27 Progesterone 07/08 Hx Capsules take one Unknown capsule - qd 12/27 Flovent HFA 05/02 Hx Aerosol 110mcg/Ac 1inha take 1 R05 t ler puffs Thong, - inhaled [employer] 07/08 twice a day one week samples Azithromycin 05/02 Hx Tablets 250mg 9tabs 2 tabs by J01.90 mouth Thong, - today, 2 [employer] 07/08 tabs by mouth tomorrow, then 1 tab by mouth daily x 5 days Meloxicam 01/23 Hx Tablets 7.5mg 30tab 1 by 724.2 Russell Roldan, /2014 s mouth M.D. - every day 07/08 Cyclobenzaprine 01/23 Hx Tablets 10mg 30tab 1 by 724.2 Russell Roldan, s mouth M.D. - three 07/08 times day as needed Hydrocodone-Aceta 01/23 Hx Tablets 5-325mg 40tab 1 every 6 724.2 Russell Roldan, min s hours as M.D. - needed 07/08 Hydrocodone 01/11 Hx Liquid ER 10-8mg/5M 100ml 1 tsp q 461.9 Willie T. Polistirex/Chlorp L 12 hrs Feliz heniramine - prn for M.D. Polistirex 05/22 cough Levofloxacin 01/11 Hx Tablets 500mg 10tab 1 po qd 461.9 Willie T. /2013 s Midura, - M.D. 05/22 Azithromycin 12/06 Hx Tablets 250mg 6tabs 2 po 466.0 Jen /2013 today and Enrique SALT CUTTER - 1 tab x 4 Hydrocodone 12/06 Hx Liquid ER 10-8mg/5M 115ml 1 tsp q 466.0 Jen Polistirex/Chlorp /2013 L 12 hrs AMADEO Nunez heniramine - prn for Polistirex 01/11 cough Meloxicam 09/20 Hx Tablets 7.5mg 30tab 1 po qd 354.0 Willie T. s take with Feliz, - food. M.D. 12/06 Bilateral Wrist 07/09 Hx Paresthes 354.0 Jen And Forearm ias in AMADEO Nunez Splint - both 05/22 hands Dx: Possible Carpal Tunnel Syndrome Hydrochlorothiazi 07/09 Hx Tablets 12.5mg 30tab 1 po qd 354.0 Jen s prn AMADEO Nunez - 09/20 Citalopram 01/29 Hx Tablets 20mg 90tab Take One Milly Hydrobromide s Tablet By Geo, - Mouth [employer] 01/20 Every Day /2016 Oxycodone/Acetami 10/24 Hx Tablets 10-325mg 60tab 1 po qid Willie hess /2012 s prn Feliz, - M.DLisa 01/08 Gabapentin 10/24 Hx Capsules 300mg 60cap take 1-2 Willie Barnett /2012 s caps at [facility], - bedtime M.DLisa 01/08 for pain Work Excuse 09/25 Hx can Ron Saldana /2012 return to [facility], - work M.D. 10/2410/09/12 Medrol Dosepak 09/25 Hx Tablets 4mg 1tabs as Willie Barnett /2012 directed Feliz, - M.DLisa 01/08 Hydromorphone HCL 09/21 Hx Tablets 4mg 20tab 1 qid Ron Saldana /2012 [facility] 01/08 Prednisone 09/19 Hx Tablets 20mg 18tab 3 x 3 Ron Aguiar. /2012 s days 2 x Campbell, - 3 days 1 M.D. 10/24 x 3 days /2012 Work Excuse 09/19 Hx unable to Ron Saldana /2012 work Campbell, - this week M.DLisa 10/24 Handicapped 09/19 Hx needs Ron [place] handicapp Campbell, - ed M.Makayla 01/08 sticker for 3 mths due to back pain ne Physical Therapy 09/19 Hx treatment Ron Saldana and Campbell, - chandler Burgess 01/08 n low back pain Oxycodone/Acetami 09/16 Hx Tablets 5-325mg 50tab 1-2 qid Willie T. nophen s prn pain [facility], - dt M.D. 10/24 Montelukast 05/21 Hx Tablets 10mg 90tab Take 1 Willie T. Sodium s Tablet AT [facility], - Bedtime M.D. 05/22 FML 05/04 Hx Ointment 0.1% 1Tube apply bid Willie T. to tid to [facility], - eyelid M.D. 09/19 clear Oxycodone/Acetami 01/12 Hx Tablets 5-325mg 30tab 1-2 qid Willie T. nophen s prn pain [facility], - M.D. 05/04 Prednisone 01/12 Hx Tablets 10mg 18tab 2 am, 1 Willie T. /2011 s pm x 3 Midura, - days then M.D. 05/04 1 bid x 3 days then 1 qd x 3 Hydrocodone/Aceta 01/09 Hx Tablets 5-325mg 40tab 1-2 po Willie T. minophen s qid prn [facility], - pain M.D. 05/04 Handicapped 01/09 Hx requires Willie TLisa Parking handicapp [facility], - ed M.D. 05/04 parking dx:low back pain length of need 3 months Physical Therapy 01/09 Hx treatment Willie T. /2011 and [facility], - evaluatio Aditya 05/04 n low back pain Chiropractic 01/09 Hx evaluate Willie T. Treatments and treat [facility], - back M.D. 01/12 pain Carisoprodol 06/29 Hx Tablets 350mg 40tab take 1 Willie T. s tablet [facility], - four M.D. 01/12 times a day as needed for muscle spasm Physical Therapy 06/29 Hx treatment Willie T. and [facility], - evaluatio M.D. 01/09 n upper back pain and radiculop athy left arm Cyclobenzaprine 12/11 Hx Tablets 5mg 30tab 1-2 at hs Willie T. s for [facility], - muscle M.D. 04/06 spasm Naproxen 12/11 Hx Tablets 500mg 30tab 1 po bid Willie T. s prn pain [facility], - M.D. 01/09 Hydrocodone/Aceta 12/11 Hx Tablets 5-325mg 30tab 1-2 po Willie T. min s qid prn [facility], - pain M.D. 01/09 Singulair 10/12 Hx Tablets 10mg 90tab Take 1 s Tablet AT [facility], - Bedtime M.D. 05/21 Doxycline 08/24 [...] 10-240mg 15tab 1 po qd 461.9 [place] ALisa Hour 24HR s Aditya Vega - 08/11 Amoxicillin/Clavu 05/13 Hx Tablets 500-125mg 20tab 1 po bid 461.9 Saturnino Kumar lanate s Aditya Vega - 05/28 Citalopram 05/04 Hx Tablets 10mg [...] 30gm apply to Willie T. rash qd Mid, - to bid M.D. 04/06 Zithromax 06/11 Hx Tablets 250mg 6Tabs 2 po qd 388.70 Milly today , Geo, - then 1 po [employer] 02/17 qd times 4 Cortisporin Otic 06/11 Hx Solution 10ml 4-5 qtts 388.70 in each Geo, - ear qid x [employer] 02/17 Antivert 04/30 Hx Tablets 25mg 15tab 1 tid prn 386.11 Luis Eduardo A. s dizziness Jose David Altman M.D. 05/05 Nasonex 12/19 Hx Suspension 50mcg/Act 2 sprays 388.70 Sophia qhs each Nora, - nostril Afnp-C 04/30 Biaxin-xl 09/30 Hx 500mg 20uni 2 po qd 460 Luis Eduardo A. ts Jose David Altman M.D. 10/10 Allerx Dose Pack 09/30 Hx [...] 03/26 Hx PT Needs To Have A Rajendra, - Hearing Afnp-C 09/04 Test Evaluatio n [...] 1 po tid 461.9 s Geo, - [facility] 10/13 Amoxicillin 09/28 Hx Capsules 250mg 30cap 1 po tid Ron JLisa /2007 Jose David Mehta M.D. 10/08 Valtrex 12/02 Hx Caplets 1,000mg 12cap 2 Tabs 054.9 s bid For Geo, - 1D At The [facility] 09/28 Sign Of An Outbreak Amoxicillin 08/17 Hx Capsules 500mg 30cap 1 po tid s x 10D Rajendra, - Afnp-C 08/27 Z-Pack 06/25 Hx 1Pak 1unit as Jose Miguel JLisa /2005 s Jose David Murguia M.D. 06/30 Robitussin A-c 06/25 Hx Syrup 100mg;10m 120un 1-2 TSP Jose Miguel Saldana /2005 g/5ML its PO qid Beatrice, - prn Cough M.D. 06/30 Norflex 01/27 Hx 100mg 30uni 1 PO bid ts Nora, - Afnp-C 08/17 Physical Therapy 01/27 Hx treatment and Nora, - evaluatio Afnp-C 02/02 n sciatic pain Retin A Gel 09/25 Hx 0.025% 45gm apply to Luis Eduardo affected Agapito, - area qhs M.D. 08/17 Medrol Dosepack 07/10 Hx 4mg 1unit as Luis Eduardo A. s Directed Agapito, - M.D. 07/22 Abreva 07/05 Hx Cream 2gm Apply Up Luis Eduardo To 5x/Day Agapito, - as Needed M.D. 09/25 Benzaclin 07/05 Hx Gel 25Gra Apply bid Luis Eduardo m Agapito, - M.D. 07/10 Motrin 06/15 Hx 800mg 40uni 1 PO tid Matt F. ts prn Tono - M.D. 07/05 Flexeril 06/15 Hx Tabs 10mg 30tab 1 PO tid Matt F. s prn Tono, - Muscle M.D. 07/15 Spasm Physical Therapy 06/15 Hx Treatment Matt F. And Tono, - Evaluatio M.D. 06/16 Neck , L Shoulder Pain Tylenol #3 06/15 Hx #3 20uni 1 PO Q4H Matt F. ts prn Tono - M.D. 07/15 Denavir 02/15 Hx 2gm Apply Q 2 Paul M. /1999 HRS While Danii, - Awake X 4 M.D. Zithromax 02/15 Hx 250mg 6unit 2 Tabs Paul M. s Day 1 Danii - M.D. 02/20 1 Tab qd Days 2 Thru 5 Ortho-Novum 09/25 Hx 0unit [facility] Robitussin ac 09/25 Hx 4Oz 1-2 TSP PO Q4H Rajendra, - prn Cough Afnp-C 10/02 Denavir 05/18 Hx 2gm Apply To Afected Rajendra, - Area Q Afnp-C 05/22 2-3 HRS /1998 While Awake X 4 Days Chibroxin 02/09 Hx Ophth Indu 10cc One GTT Matt F. qid To Tono, - Effected M.D. 02/14 Eye Metrogel 02/09 Hx .75% 1unit Apply bid Matt F. s Tono, - M.D. 03/11 Physical Therapy 10/13 Hx Treatment Willie T. And Feliz, - Evaluatio M.D. 10/14 n RT Knee [...] ac 12/24 Hx 4Oz 1-2 TSP Paul . PO Q4H Blumkin, - prn M.D. 12/31 Motrin 10/04 Hx 600mg 60uni 1 PO tid Matt F. ts prn Tono, - M.D. 11/03 Flexeril 10/04 Hx 10mg 20uni 1 PO tid Matt F. /1997 ts prn Shallv[place], - Muscle M.D. 11/03 Spasm Keflex 09/09 Hx Tabs 5Oomg 21tab tid Ron J. s Campbell, - M.D. 12/24 Prednisone 04/29 Hx Tabs [...] Provider TB Intradermal 12/27/ Administered Injection Willie Barnett Test 2005 Aditya Piper Intradermal 02/15/ Administered Injection Paul Damon 1999 Aditya Foy TB Intradermal 04/18/ Administered Injection Family Test 1972 [facility] Injection 11/10/ Administered Injection Family Subcutaneous Or 1971 [facility] Immunizations CPT Code Status Date Vaccine Lot # [id number] Given 05/13/2010 Tdap Tetanus, W Pertussis [id number] 98313 Given 02/18/2000 Td Immunization, For Use In Individuals 7 Years Or Older 57711 Given 01/13/1979 Tetanus And Diptheria Adult Preservative Free >7Yrs 12869 Given 01/13/1979 (IPV) Inactive Poliovirus Vaccine 97574 Given 06/16/1973 Measles Immunization 51487 Given 04/18/1973 (IPV) Inactive Poliovirus Vaccine 97006 Given 04/18/1973 DTP Immunization 89372 Given 07/24/1971 DTP Immunization 50281 Given 10/13/1970 Mumps Immunization 50491 Given 07/07/1970 Rubella Immunization 13239 Given 11/11/1969 (IPV) Inactive Poliovirus Vaccine 33879 Given 11/11/1969 DTP Immunization 35266 Given 02/07/1969 (IPV) Inactive Poliovirus Vaccine 67784 Given 1968 (IPV) Inactive Poliovirus Vaccine 96844 Given 1970 DTP Immunization 27333 Given 1970 DTP Immunization 59157 Given 1970 DTP Immunization Vital Signs Date Vital Result Comment 12/28/2017 BP Systolic 120 mmHg BP Diastolic [...] Test Result H/L Range Note Laboratory test 12/28/2017 Iron <pending> 60-150 finding Laboratory test 12/28/2017 Inr (Fma) 1.4 Low 2-3 finding Laboratory test 12/26/2017 Inr (Fma) 1.1 Low 2.0-3.0 finding Inr/Protime 12/19/2017 Inr 1.11 High 0.77-1.02 Laboratory test 12/19/2017 Partial Thrombo 28.6 seconds 26.0-36.3 finding Time PTT Urine Culture And 12/18/2017 Urine Culture SEE RESULT BELOW 1 Sensitivities Urinalysis Profile 12/18/2017 Urine Color Yellow Urine Appearance Cloudy Urine Specific [place] 1.014 1.010-1.030 Urine pH 5.0 5-9 Urine [...] Protein 393.83 mg/L High &lt ; 5.00 2 Comp Metabolic Panel 12/18/2017 Sodium 132 mmol/L [...] Egfr Non- 92.0 >60 Egfr 118.3 >60 3 Laboratory test finding 12/18/2017 Lactic Acid 0.8 mmol/L 0.5-2.0 4 CBC Auto Diff 12/18/2017 White Blood Count [...] 5.4 x10^3/UL 1.5-7.2 Lymph# 3.1 x10^3/UL 0.7-4.9 Benson# 0.3 x10^3/UL 0.1-0.9 Gran % 60.2 % 42.2-75.2 Lymph % 35.7 % 20.5-51.1 Benson% 4.1 % 1.7-9.3 Laboratory test finding 05/23/2017 TSH 3.44 mIU/L 0.50-6.00 Comprehensive Metabolic Prof 05/21/2016 Sodium 140 mEq/L 134-149 Potassium 4.7 mEq/L 3.6-5.5 Chloride 102 mEq/L 94-112 Carbon Dioxide 26 mEq/L 21-32 Glucose 108 mg/dL High 70-105 5 BUN 15 mg/dL 6-26 Creatinine 0.7 mg/dL [...] 4.4 x10^3/UL 1.5-7.2 Lymph# 2.5 x10^3/UL 0.7-4.9 Benson# 0.2 x10^3/UL 0.1-0.9 Gran % 61.5 % 42.2-75.2 Lymph % 35.5 % 20.5-51.1 Benson% 3.0 % 1.7-9.3 Laboratory test finding 05/21/2016 TSH 2.41 mIU/L 0.50-6.00 6 Complete Blood Count 07/16/2015 WBC 10.6 x10^3/UL High 3.6-9.6 RBC 4.01 x10^6/UL 3.90-5.70 HGB 11.9 g/dL Low 12.1-17.2 HCT 35 % Low 36-50 MCV 88.0 fL 82.2-97.4 MCH 29.5 pg 27.6-33.3 MCHC 33.5 g/dL 33.0-35.5 RDW 13.0 % 11.6-13.7 PLT 275 x10^3/UL 150-400 MPV 8.8 fL 7.4-10.4 Gran # 6.0 x10^3/UL 1.5-7.2 Lymph# 4.2 x10^3/UL 0.7-4.9 Benson# 0.4 x10^3/UL 0.1-0.9 Gran % 56.5 % 42.2-75.2 Lymph % 39.7 % 20.5-51.1 Benson% 3.8 % 1.7-9.3 Comprehensive Metabolic Prof 07/16/2015 [...] test finding 07/16/2015 TSH 1.62 mIU/L 0.50-6.00 7 Influenza A&B-fma 07/08/2015 Influenza A neg Influenza B neg Laboratory test finding 01/21/2015 Human Papilloma Virus Rna Negative Negative 8 Influenza A&B-fma 09/13/2014 Influenza A NEGATIVE Influenza [...] Laboratory test finding 11/01/2012 Serum Negative Negative 10 CBC Auto Diff 10/20/2012 White Blood Count [...] B1 Whole Blood 166 nmol/L 70- 180 11 Vitamin E Level 10.6 mg/L 5.5 - 17.0 12 Comp Metabolic Panel 10/20/2012 Sodium 136 mmol/L [...] Egfr Non- 108.6 >60 Egfr 139.7 >60 13 Iron & Iron Binding Capacity 10/20/2012 Iron 74 g/dL 28-170 Unsaturated Iron Binding 302 g/dL Total Iron Binding Capacity 376 g/dL 250-450 % Iron Saturation 20 % 15-55 Laboratory test finding 10/20/2012 Ferritin 34 ng/mL 11-307 Vitamin B12 604 pg/mL 180-914 Folate > 25.0 ng/mL High 2-16 TSH (Thyroid Stimulating Horm) 2.00 miu/mL 0.34-5.60 Cortisol 8.1 g/dL 14 Vitamin D, 25 Hydroxy 10/20/2012 25-Hydroxy Vitamin D2 5.4 ng/mL 25-Hydroxy Vitamin D3 25 ng/mL 25-Hydroxy Vitamin D Total 30 ng/mL 15 Laboratory test finding 2011 Throat - Beta [...] 0-129 VLDL (Calculated) 41 mg/dL 0-50 CBC ([facility]) 05/11/2010 WBC 7.9 3.6-9.6 RBC 4.38 3.90-5.70 [...] Quickstrep POSITIVE Negative Ua - Non Micro ([facility]) 10/24/2007 Appearance CLEAR Color YELLOW Glucose NEG Bilirubin NEG Ketones NEG SP Grav 1.025 Blood NEG PH 6.0 Protein NEG Urobil 1.0 Nitrite NEG Leukocytes ([facility]) NEG Laboratory test finding 08/23/2007 Quickstrep NEGATIVE Negative Throat - Beta Strep Fma NEGATIVE @24HRS Laboratory test finding 12/02/2005 Throat Culture NEGATIVE @ 48HRS Laboratory test finding 08/07/2005 Quickstrep NEGATIVE Negative Laboratory test finding 07/10/2002 , Serum NEGATIVE Free T4/TSH Profile ([facility]) 07/13/2001 Free T4 0.89 ng/dL 0.7-1.55 TSH 2.27 0.4-4.2 Laboratory test finding 07/10/2001 FSH 2.9 mIU/ml 16 LH 3.4 mIU/ml 17 Prolactin 13.3 ng/ml 1.4 - 24.2 1 SEE RESULT BELOW Name: ROOSEVELTALEXANDREA A : [address]: Audrey Ennis MD Acct: [id number] Unit: [id number] AGE: 47 Location: ICU [id number] Re12/19/17 SEX: F Status: ADM IN SPEC: [id number] ZAYNAB: 12/18/17-[address]: Doug RO REQ: [id number] RECD: 12/19/17 STATUS: MAGALI GARZA DR: Bubba Ortega MD _ SOURCE: URINE SPDESC: ORDERED: Urine Culture Procedure Result Reported Site Urine Culture Final 12/20/17- 1125 ML No Growth (<1,000 CFU/mL) * ML - Main Lab . END OF REPORT DEPARTMENT OF PATHOLOGY, [facility] [employer] [place], [place] [address] Paul Davis M.D. Director [facility] # [id number] 2 Acute inflammation: >10.00 3 Because ethnic data is not always readily [...] 15-29 5 Kidney failure <15 (or dialysis) 4 [facility] Severe Sepsis and Septic Shock Management Bundle Measure requires all lactic acids initially measuring >2.0 mmol/L be repeated. 5 RESULTS VERIFIED BY REPEAT ANALYSIS 6 FASTING 7 FASTING 8 The high-risk HPV types detected by the assay include: 16, 18, 31, 33, 35, 39, 45, 51, 52, 56, 58, 59, 66, and 68. 9 RUN DATE: 05/24/14 [facility] LAB LIVE PAGE 1 RUN TIME: [address] [place] [address] Specimen Inquiry Name: ALEXANDREA ALBERT Raul : [address]: Keila Etienne MD Acct: [id number] Unit: [id number] AGE: 43 Location: [facility] Re05/22/14 SEX: F Status: REG REF SPEC: [id number] ZAYNAB: 05/22/14-[address] [facility] [address]: Keila Etienne MD REQ: [id number] RECD: 05/22/14 STATUS: SOUT _ ORDERED: LEVEL III FINAL DIAGNOSIS Skin, under left breast, biopsies: Achrochordons. CLINICAL HISTORY No history given GROSS DESCRIPTION The specimen is received in formalin labeled Alexandrea Roosevelt, No Source Identified with a requisition labeled [...] Signed (signature on file) Senia Dumont MD 1630 END OF REPORT * ML=Testing performed at Main Lab DEPARTMENT OF PATHOLOGY, [address] [place] [address] Paul Davis M.D. Director [facility] # [id number] 10 This test detects intact HCG only and is indicated for the early detection of . 11 Test Performed by: [place] [address] [employer]: Susy Cedeno, Ph.D. 12 Test Performed by: [place] [address] [employer]acker: Susy Cedeno, Ph.D. 13 Because ethnic data is not always readily [...] 15-29 5 Kidney failure <15 (or dialysis) 14 AM Cortisol 8.7-22.4 PM Cortisol Less than 10 15 -- REFERENCE VALUE -- 25-HYDROXY D TOTAL (D2+D3) Optimum levels in the normal population are 25-80 Test Performed by: [address] [address] [employer]acker: Will Lamb III, M.D. 16 Follicular Phase: 4.0-13.0 mIU/mL Ovulatory Peak: 5.0-22.0 mIU/mL Luteal Phase: 2.0-13.0 mIU/mL Post-Menopausal: 20.0-138.0mIU/mL MALE: 1.0-8.0 mIU/mL . 17 Follicular Phase: 1.0-18.0 mIU/ml Ovulatory Peak: 24.0-105.0mIU/ml Luteal Phase: 0.4-20.0 mIU/ml Post-Menopausal: 15.0-62.0 mIU/ml MALES: 2.0-12.0 mIU/ml . Procedures Date CPT Code Description Status 12/26/2017 51622 Finger Or Heel Stick Completed 11/14/2017 Mammogram Completed 05/31/2017 69649 CPHL SHQ Completed 05/31/2017 21976 Finger Or Heel Stick Completed 10/28/2016 Mammogram Completed 05/27/2016 96628 CPHL SHQ Completed 07/28/2015 Mammogram Completed 05/22/2014 23474 Remove Skin Tags Up To 15 Completed 08/03/2012 Mammogram Completed 04/06/2011 99840 Remove Skin Tags Up To 15 Completed 07/05/2001 12691 Remove Skin Tags Up To 15 Completed 03/18/1999 16620 Remove Skin Tags Up To 15 Completed 11/10/1970 61217 Injection Subcutaneous Or Intramuscular Completed Encounters Type Date Location Provider CPT E/M Dx Office Visit 09/13/2017 11:20a [facility] Office Keila Ortega M.D. 44773 R41.840 F41.9 Office Visit 03/21/2017 10:40a Main Office Keila Ortega M.D. 90211 R41.840 F41.9 E66.09 Office Visit 01/21/2017 11:15a [facility] TICO Canas 56654 R05 R53.83 F34.1 Office Visit 11/24/2016 9:00a [facility] Keila Ortega M.D. 45256 R41.840 F41.9 Office Visit 02/10/2016 9:30a [facility] Office TICO Canas 78886 R41.840 E66.09 Office Visit 12/31/2015 3:30p [facility] Office TICO Canas 83076 R41.840 F34.1 E66.09 Office Visit 07/08/2015 11:40a Main Office Keila Ortega M.D. 10893 J06.9 E66.09 Z12.31 Office Visit 05/02/2015 2:45p [facility] Senia Benito, [employer] 95300 J01.90 R05 Office Visit 01/23/2015 11:00a Main Office Russell Roldan M.D. 33307 724.2 354.0 Office Visit 09/13/2014 2:15p [place] [address] 465.9 788.33 380.4 Office Visit 05/22/2014 9:40a [facility] Keila Ortega M.D. 44015 701.9 757.39 Office Visit 01/11/2014 3:10p Main Office Willie Piper M.D. 43242 461.9 Office Visit 12/06/2013 4:30p [place] [address] 466.0 Office Visit 09/20/2013 8:00a [facility] Willie Piper M.D. 13231 354.0 Office Visit 07/09/2013 1:00p [place] [address] 354.0 Office Visit 01/08/2013 1:20p Main Office Willie Piper M.D. 15805 V70.0 300.00 477.9 311 Office Visit 10/24/2012 9:10a Main Office Willie Piper M.D. 90622 724.2 729.2 Office Visit 09/25/2012 2:10p Main Office Ron Hightower M.D. 41644 724.5 Office Visit 09/19/2012 1:40p [facility] Ron Hightower M.D. 98697 724.3 Office Visit 05/04/2012 1:10p [facility] Willie Piper M.D. 45000 373.00 Office Visit 01/13/2012 11:00a [facility] Willie Piper M.D. 07007 724.5 Office Visit 01/10/2012 9:40a Main Office Willie Piper M.D. 51551 724.5 300.00 311 477.9 Office Visit 2011 1:10p Main Office Willie Piper M.D. 32818 724.5 729.2 465.9 Office Visit 04/06/2011 3:00p [facility] Shanice DrewLele-Swapna 69685 782.9 Office Visit 12/23/2010 2:30p Main Office Shanice DrewLele-Swapna 09359 V70.5 Office Visit 12/11/2010 2:10p Main Office Willie Piper M.D. 70300 922.31 Office Visit 10/12/2010 1:10p Main Office Willie Piper M.D. 31449 381.81 381.10 Office Visit 08/24/2010 9:45a Main Office Shanice DuganLele encarnacion-Swapna 02684 466.0 381.81 Office Visit 08/11/2010 9:30a [facility] Shanice DrewLele-Swapna 52218 465.9 466.0 Office Visit 07/30/2010 9:00a [facility] Willie Piper M.D. 54831 300.00 311 Office Visit 06/12/2010 10:10a Main Office Willie Piper M.D. 95290 466.0 461.9 300.00 311 Office Visit 06/04/2010 10:10a [facility] Willie Piper M.D. 05395 466.0 708.0 Office Visit 05/28/2010 10:00a [facility] Willie Piper M.D. 53546 461.9 300.00 311 724.2 Office Visit 05/13/2010 11:10a [facility] Saturnino Vega M.D. 22819 461.9 V06.5 Office Visit 05/04/2010 3:20p Main Office Willie Piper M.D. 87539 V70.0 300.00 311 780.79 278.00 845.09 Office Visit 03/19/2010 10:00a [facility] Willie Piper M.D. 12811 300.00 311 110.4 Office Visit 02/17/2010 2:20p Main Office Willie Piper M.D. 38936 300.00 110.4 311 Office Visit 06/11/2009 10:45a [facility] Milly LundTICO box 08191 388.70 Office Visit 04/30/2009 1:40p [facility] Luis Eduardo Altman M.D. 78919 386.11 Office Visit 12/19/2008 2:00p [facility] Sophia RiosLele dunn-C 83674 462 388.70 Office Visit 09/30/2008 2:30p [facility] Luis Eduardo Altman M.D. [id number] 460 Office Visit 09/04/2008 3:30p [facility] Saturnino Vega M.D. 96062 382.9 Office Visit 03/26/2008 1:00p [facility] Lele Bonds-C 53337 034.0 389.9 Office Visit 11/09/2007 7:45p Main Office Sophia MelendezLele-C 13061 995.3 Office Visit 10/24/2007 10:00a [facility] Shanice AlanLele kraft-C 13759 V70.5 692.9 Office Visit 08/28/2007 2:30p Main Office TICO Suarez 24610 461.9 Office Visit 08/23/2007 3:00p [facility] Sophia MelendezLele-C 24338 462 Office Visit 09/28/2006 8:10p Main Office Ron Hightower M.D. 75862 465.9 382.9 Office Visit 12/23/2005 3:30p [facility] TICO Suarez 77758 V70.5 Office Visit 12/02/2005 11:00a [facility] TICO Suarez 19737 054.9 465.9 Office Visit 08/17/2005 3:30p [facility] Lele Bonds-C 31693 381.02 Office Visit 08/07/2005 9:00a [facility] Lele Bonds-C 55114 718.86 465.9 462 Office Visit 06/25/2005 9:00a Main Office Jose Mgiuel Barron M.D. 83271 486 Office Visit 01/28/2004 1:30p [facility] Sophia Melendez, Afnp-C 82095 724.3 Office Visit 08/21/2002 3:15p [facility] Shanice Drew, Afnp-C 33433 558.9 Office Visit 09/25/2001 3:40p [facility] Luis Eduardo Altman M.D. 29746 Office Visit 07/10/2001 2:10p [facility] Luis Eduardo Altman M.D. 44271 Office Visit 07/05/2001 10:00a [facility] Luis Eduardo Altman M.D. 59002 Office Visit 06/15/2000 11:00a Main Office Matt Power M.D. 78553 Plan of Care 12/28/2017 - Keila Ortega M.D.Z79.01 alf (current) use of [id number] Other pulmonary embolism without acute cor pulmonaleComments:discussed treatment for 3 mo at least, no testing for hypercoaguable states until off blood thinners, to hold on estrogen therapy until off blood thinners and disucssion with Dr Ayoub for menopause. to stay on coumadin for now given possible GI bleedFollow up:3 moD64.9 Anemia, unspecifiedComments:take iron twice a day, or try multivitamin with iron if too constipating take with citrus/vitamin C to help absorption; increase iron rich foods in diet; iron can cause constipation or dark stools if blood in stool call office [facility], if anemia persistent may need to see GI for EGD/ [id number] Cellulitis of abdominal wallComments:improved finish antibiotics; call if fever develops, no [id number] Anxiety disorder, unspecifiedComments:stable on regimen, call if symptoms worsenAllComments:~B_~U_ Medication Management~b_~u_ Patient Understands medications she's taking? Yes No Are there Barriers to Adherence? Yes No Has the patient been asked about herbal supplements and therapies, and OTC meds? Yes No
[2018-01-10 12:25] LABS: ABS Basophils 0.1 10^3/ul (0-0.2); ABS Eosinophils 0.3 10^3/ul (0-0.6); ABS Lymphocytes 2.3 10^3/ul (1.0-4.8); ABS Monocytes 0.4 10^3/ul (0-0.8); ABS Neutrophils 4.6 10^3/ul (1.5-7.7); ABS Nucleated RBC 0 10^3/ul; Eosinophil % 4.4 % (0-6); Hematocrit 34 % (35-47); Hemoglobin 11.5 g/dl (12.0-16.0); Lymphocyte % 29.9 % (25-47); Mean Corpuscular HGB Conc 34 g/dl (31-36); Mean Corpuscular Hemoglobin 29 pg (27-31); Mean Corpuscular Volume 86 fL (80-97); Mean Platelet Volume 8.9 um3 (7.4-10.4); Nucleated Red Blood Cells % 0.1; Platelet Count 393 10^3/ul (150-450); Red Blood Count 3.99 10^6/ul (4.00-5.40); Red Cell Distribution Width 13 % (10.5-15); White Blood Count 7.8 10^3/ul (3.5-10.8)
--- NOTE | 2018-01-10 12:26 | ED ---
Abdominal Pain/Female - HPI Summary HPI Summary: Patient presents to the emergency department for abdominal pain and redness. Patient had breast and abdominal augmentation in [place] 12/06/17. She was admitted at [facility] [place] 12/19-11/24/17 where she was found to septic from wound infection. She was also found to have a PE. Pt. states that infection did heal and she recently tried to return to work. Pt. states last , 6 days ago, she noticed new abdominal pain. She states yesterday she noticed redness to abdomen as well as a fever. She called her oncall surgeon, Dr. Lowery, and was started on Doxycycline. Pt. states that he had ordered an outpt. u/s to evaluate for abscess, she has not had this done yet. Pt. presents to the ER today for further evaluation. She otherwise denies CP, SOB, vomiting. Symptoms are moderate in severity. Touching area and movement makes symptoms worse. Rest makes symptoms better. - History of Current Complaint Chief Complaint: EDAbdPain Stated Complaint: ABD PAIN Time Seen by Provider: 01/10/18 11:53 Hx Obtained From: Patient Hx Last Menstrual Period: 2 years - uterine ablasion Pain Intensity: 7 Allergies/Adverse Reactions: Allergies Allergy/AdvReac Type Severity Reaction Status Date / Time codeine Allergy Nausea Verified 01/10/18 11:35 Home Medications: Home Medications busPIRone TAB* [Buspar TAB*] 10 mg PO TID PRN 01/10/18 [History Confirmed ] PMH/Surg Hx/FS Hx/Imm Hx Previously Healthy: Yes Endocrine/Hematology History: Denies: Hx Diabetes, Hx Sickle Cell Disease, Hx Thyroid Disease Cardiovascular History: Denies: Hx Hypertension, Hx Pacemaker/ICD, Other Cardiovascular Problems/ Disorders Respiratory History: Denies: Hx Asthma, Hx Chronic Obstructive Pulmonary Disease (COPD), Other Respiratory Problems/Disorders GI History: Reports: Hx Gastroesophageal Reflux Disease - rarely, treats w/Tums Denies: Hx Ulcer, Other GI Disorders History: Denies: Hx Renal Disease Musculoskeletal History: Reports: Hx Back Problems - herniated discs, chronic pain, Hx Orthopedic Injury - (right) knee ACL repair 1988 Denies: Other Musculoskeletal History Sensory History: Reports: Hx Contacts or Glasses - for night driving Denies: Hx Hearing Aid Opthamlomology History: Reports: Hx Contacts or Glasses - for night driving Neurological History: Denies: Other Neuro Impairments/Disorders Psychiatric History: Reports: Hx Anxiety - MEDICATION FOR, Hx Depression - 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 1987 RT ACL REPAIR. 2008 RT KNEE SCOPE- [facility] [place]. EXCISION FOREIGN OBJECT FROM MOUTH A CHILD , BACK SURGERY 2012, TWO CARPAL TUNNEL SURGERIES. LOWER BACK SURGERY- FOR HERNIATED DISC-. RIGHT WRIST CARPAL TUNNEL RELEASE-11/2013 Hx Anesthesia Reactions: No Infectious Disease History: Yes Infectious Disease History: Denies: Hx Clostridium Difficile, Hx Hepatitis, Hx Human Immunodeficiency Virus (HIV), Hx of Known/Suspected MRSA, Hx Shingles, Hx Tuberculosis, Traveled Outside the in Last 30 Days - Family History Known Family History: Positive: Cardiac Disease - Social History Occupation: Employed Full-time Lives: With Family Alcohol Use: None Substance Use Type: Reports: None Smoking Status (MU): Never Smoked Tobacco Have You Smoked in the Last Year: No Review of Systems Positive: Fever, Chills Cardiovascular: Negative Respiratory: Negative Positive: Abdominal Pain. Negative: Vomiting, Nausea Positive: Other - Redness to abdominal wall All Other Systems Reviewed And Are Negative: Yes Physical Exam Triage Information Reviewed: Yes Vital Signs On Initial Exam: Initial Vitals Temp Pulse Resp BP Pulse Ox 98.7 F 94 16 129/68 98 01/10/18 11:32 01/10/18 11:32 01/10/18 11:32 01/10/18 11:32 01/10/18 11:32 Vital Signs Reviewed: Yes Appearance: Positive: Well-Appearing - Patient sitting up in bed in no acute distress. Pleasant. Family member present. Head/Face: Positive: Normal Head/Face Inspection Eyes: Positive: Normal Neck: Positive: Supple Respiratory/Lung Sounds: Positive: Clear to Auscultation, Breath Sounds Present Cardiovascular: Positive: Normal, RRR Abdomen Description: Positive: Other: - Noted to the center of the abdomen above the umbilicus there is a roughly 10 x 12 cm, irregular, area of erythema. Area is mildly indurated, no fluctuance or drainage. Warm to touch. No deep pain on palpation of the abdomen. This healing surgical incision noted to the bikini region. Drain placed on the right there is a small amount of serosanguineous fluid and bulb. Neurological: Positive: Normal, CN Intact II-III Psychiatric: Positive: Affect/Mood Appropriate Diagnostics - Vital Signs Vital Signs Temp Pulse Resp BP Pulse Ox 01/10/18 11:32 98.7 F 94 16 129/68 98 - Laboratory Lab Results: Lab Results 01/10/18 Range/Units 12:11 WBC 7.8 (3.5-10.8) 10^3/ul RBC 3.99 L (4.00-5.40) 10^6/ul Hgb 11.5 L (12.0-16.0) g/dl Hct 34 L (35-47) % MCV 86 (80-97) fL MCH 29 (27-31) pg MCHC 34 (31-36) g/dl RDW 13 (10.5-15) % Plt Count 393 (150-450) 10^3/ul MPV 8.9 (7.4-10.4) um3 Neut % (Auto) 59.1 (38-83) % Lymph % (Auto) 29.9 (25-47) % Edmonson % (Auto) 5.5 (0-7) % Eos % (Auto) 4.4 (0-6) % Baso % (Auto) 1.1 (0-2) % Absolute Neuts (auto) 4.6 (1.5-7.7) 10^3/ul Absolute Lymphs (auto) 2.3 (1.0-4.8) 10^3/ul Absolute Monos (auto) 0.4 (0-0.8) 10^3/ul Absolute Eos (auto) 0.3 (0-0.6) 10^3/ul Absolute Basos (auto) 0.1 (0-0.2) 10^3/ul Absolute Nucleated RBC 0 10^3/ul Nucleated RBC % 0.1 Result Diagrams: 01/10/18 12:11 01/10/18 12:11 Lab Statement: Any lab studies that have been ordered have been reviewed, and results considered in the medical decision making process. Abdominal Pain Fem Course/Dx - Course Course Of Treatment: Patient presenting to the ER for evaluation of abdominal wall cellulitis. She is afebrile stable vital signs. Blood work was drawn and abdominal ultrasound was ordered to evaluate for fluid collection. CBC is unremarkable. CMP shows elevation in BUN to creatinine ratio, alkaline phosphatase and CRP. Abd. u/s per radiology: FINDINGS: Between the subcutaneous fat and the anterior abdominal wall there is an avascular and. hypoechoic collection measuring up to 1.4 cm in thickness and approximately 6.3 x 5 cm in. the frontal plane. IMPRESSION: PROBABLE SUBCUTANEOUS FLUID COLLECTION BETWEEN THE SUBCUTANEOUS FAT AND ANTERIOR ABDOMINAL. WALL DESCRIBED ABOVE. I called and discussed findings with patient's plastic surgery office in [place]. Dr. Lance who is oncall for Dr. Reed (pt.'s sx) spoke directed with Dr. Reed and he would like to see pt. in his office tonight in [place] to drain fluid collection. Results and plan were discussed with patient. She is agreeable. Patient is well appearing and feel she feels she is safe to drive herself. She will be discharged to go directly to [place] to be evaluated and treated by her surgeon. To return to the ER if needed. - Diagnoses Provider Diagnoses: Abdominal wall cellulitis, Abdominal fluid collection, Cellulitis Discharge - Sign-Out/Discharge Documenting (check all that apply): Discharge/Admit/Transfer - Discharge Plan Condition: Good Disposition: HOME Patient Education Materials: Cellulitis (ED) Referrals: Keila Ortega MD [Primary Care Provider] - Additional Instructions: Go straight to Dr. Reed's office after you are discharged from the ER - Billing Disposition and Condition Condition: GOOD Disposition: Home
[2018-01-10 12:52] LABS: EGFR Non-African American 106.3 (>60)
--- NOTE | 2018-01-10 13:02 | RAD ---
HISTORY: Pain and erythema in the skin overlying the lower abdomen and pneumonia with a history of abdominoplasty. COMPARISONS: Similar examination December 23, 2017 at did not show any subcutaneous abscess TECHNIQUE: Multiple transverse and longitudinal ultrasound images were obtained of subcutaneous tissue of the lower abdomen. FINDINGS: Between the subcutaneous fat and the anterior abdominal wall there is an avascular and hypoechoic collection measuring up to 1.4 cm in thickness and approximately 6.3 x 5 cm in the frontal plane. IMPRESSION: PROBABLE SUBCUTANEOUS FLUID COLLECTION BETWEEN THE SUBCUTANEOUS FAT AND ANTERIOR ABDOMINAL WALL DESCRIBED ABOVE.
[2018-01-10 14:21] VITALS: BP 100/71
== END 2018-01-10 14:20 | disposition home or self-care (01) ==
LOC: ED 11:30
DX: L03.311 Cellulitis of abdominal wall (principal); R50.9 Fever, unspecified; K21.9 Gastro-esophageal reflux disease without esophagitis; F41.9 Anxiety disorder, unspecified; F32.9 Major depressive disorder, single episode, unspecified; Z88.5 Allergy status to narcotic agent; Z82.49 Family history of ischemic heart disease and other diseases of the circulatory system
CPT/HCPCS: 36415; 76705; 80053; 83605; 85025; 86140; 87040; 99283

== ENCOUNTER 2019-07-29 12:01 | Emergency (ER) | payer OTHER ==
[2019-07-29 12:08] VITALS: BP 142/88
--- NOTE | 2019-07-29 12:20 | UC ---
Throat Pain/Nasal Hugo HPI - HPI Summary HPI Summary: 49yo female presenting with sore throat, sinus congestion, dry cough, chills, body aches, and decreased appetite since yesterday. Denies known fevers. Denies ill contacts. Denies n/v. Denies SOB and wheezing. Taking ibuprofen for symptom relief. States concern for strep throat and influenza. - History of Current Complaint Chief Complaint: UCGeneralIllness Stated Complaint: URI Hx Obtained From: Patient Hx Last Menstrual Period: 2 years - uterine ablasion Pain Intensity: 8 Pain Scale Used: 0-10 Numeric - Allergies/Home Medications Allergies/Adverse Reactions: Allergies Allergy/AdvReac Type Severity Reaction Status Date / Time codeine Allergy Nausea Verified 07/29/19 12:09 Home Medications: Home Medications BuPROPion XL* [Bupropion XL*] 1 g PO DAILY 07/29/19 [History Confirmed 07/29/19] Escitalopram Oxalate [Lexapro 10 mg] 1 tab PO DAILY 07/29/19 [History Confirmed 07/29/19] Lisdexamfetamine Dimesylate [Vyvanse] 1 tab PO DAILY 07/29/19 [History Confirmed 07/29/19] Metformin HCl 1 tab PO DAILY 07/29/19 [History Confirmed 07/29/19] PMH/Surg Hx/FS Hx/Imm Hx Endocrine History: Diabetes - Surgical History Surgical History: Yes Surgery Procedure, Year, and Place: TONSILECTOMY A CHILD. 1987 RT ACL REPAIR. [place] [facility] [place]CISION FOREIGN OBJECT FROM MOUTH A CHILD , BACK SURGERY 2012, TWO CARPAL TUNNEL SURGERIES. LOWER BACK SURGERY- FOR HERNIATED DISC-. RIGHT WRIST CARPAL TUNNEL RELEASE-11/2013 - Family History Known Family History: Positive: Cardiac Disease - Social History Alcohol Use: None Substance Use Type: None Smoking Status (MU): Never Smoked Tobacco Have You Smoked in the Last Year: No - Immunization History Most Recent Influenza Vaccination: 2018 Most Recent Pneumonia Vaccination: unknown Review of Systems All Other Systems Reviewed And Are Negative: Yes Constitutional: Positive: Chills, Fatigue ENT: Positive: Sore Throat, Sinus Congestion Respiratory: Positive: Cough - nonproductive. Negative: Shortness Of Breath Cardiovascular: Positive: Negative Gastrointestinal: Positive: Negative Musculoskeletal: Positive: Myalgia Neurological: Positive: Headache Physical Exam Triage Information Reviewed: Yes Appearance: No Pain Distress, Well-Nourished, Ill-Appearing Vital Signs: Initial Vital Signs Temp 97.3 F 07/29/19 12:06 Pulse 106 07/29/19 12:06 Resp 20 07/29/19 12:06 BP 142/88 07/29/19 12:06 Pulse Ox 100 07/29/19 12:06 Lab Results 07/29/19 07/29/19 Range/Units 12:33 12:35 Influenza A (Rapid) Negative (Negative) Influenza B (Rapid) Negative (Negative) Group A Strep Rapid Positive A (Negative) Vital Signs Reviewed: Yes Eyes: Positive: Conjunctiva Clear ENT: Positive: Hearing grossly normal, Pharyngeal erythema, Nasal congestion, TMs normal, Uvula midline. Negative: Tonsillar swelling, Tonsillar exudate, Trismus, Muffled voice, Hoarse voice Neck exam: Normal Neck: Positive: Supple, Nontender, No Lymphadenopathy Respiratory Exam: Normal Respiratory: Positive: Lungs clear, Normal breath sounds, No respiratory distress Cardiovascular Exam: Other - regular rhythm Cardiovascular: Negative: Tachycardia Neurological: Positive: Alert Psychological: Positive: Age Appropriate Behavior Skin Exam: Normal Throat Pain/Nasal Course/Dx - Course Course Of Treatment: Positive rapid strep test. I treated patient with penicillin v and instructed to continue with symptomatic treatment. Instructed to follow up with pcp if symptoms persist. Patient voiced understanding and agreed with treatment plan. - Differential Dx/Diagnosis Provider Diagnosis: Strep pharyngitis Discharge ED - Sign-Out/Discharge Documenting (check all that apply): Patient Departure All imaging exams completed and their final reports reviewed: No Studies - Discharge Plan Condition: Stable Disposition: HOME Prescriptions: Penicillin VK 500 MG TAB(NF) [Penicillin VK 500 mg Tab] 500 mg PO BID #20 tab Patient Education Materials: Strep Throat (ED) Referrals: Keila Ortega MD [Primary Care Provider] - If Needed Additional Instructions: As discussed, you tested positive for strep throat today. Take penicillin as prescribed. You may take ibuprofen and/or tylenol as directed for fever and pain relief. You may use over the counter throat sprays, lozenges, and tea with honey for symptomatic relief. Get plenty of rest and increase fluid intake. Follow up with your primary care provider if symptoms do not resolve within 10 days. - Billing Disposition and Condition Condition: STABLE Disposition: Home
[2019-07-29 12:47] LABS: Influenza A Molecular NEGATIVE (Negative); Influenza B Molecular NEGATIVE (Negative)
== END 2019-07-29 12:55 | disposition home or self-care (01) ==
LOC: UCEAST 12:01
DX: J02.0 Streptococcal pharyngitis (principal); E11.9 Type 2 diabetes mellitus without complications; R53.83 Other fatigue; R09.89 Other specified symptoms and signs involving the circulatory and respiratory systems; Z88.5 Allergy status to narcotic agent; Z79.84 Long term (current) use of oral hypoglycemic drugs
CPT/HCPCS: 87651; 99212; G0463

== ENCOUNTER 2019-10-25 06:03 | Day surgery (SDC) | payer OTHER ==
[~2019-10-25 06:03] MED LIST: Acetaminophen TAB* 325 MG PO ONE; Buffered Lidocaine 1% SYRIN* 1 ML/SYRINGE INTRADERM ONE; Lactated Ringers 1000 ML Bag* 1,000 ML IV SCH
[2019-10-25] MEDS ORDERED: Acetaminophen TAB* 325 MG ONE (06:19)
[2019-10-25] MEDS ORDERED: Buffered Lidocaine 1% SYRIN* 1 ML/SYRINGE INTRADERM ONE (06:20)
[2019-10-25] MEDS ORDERED: Midazolam* 1 MG/ML 2 ML VIAL (2 MG) ONE (07:16)
[2019-10-25] MEDS ORDERED: fentaNYL* 50 MCG/ML 2 ML VIAL (100 MCG VIAL) ONE (07:16)
[2019-10-25] MEDS ORDERED: Propofol* 10 MG/ML 20 ML BTL ONE (07:17)
[2019-10-25] MEDS ORDERED: Lidocaine 2% PF * 5 ML VIAL ONE (07:17)
[2019-10-25] MEDS ORDERED: Silver Nitrate/Potassium Nitr* 1 PAK (1 PAK PER PATIENT) ONE (07:33)
[2019-10-25] MEDS ORDERED: Dexamethasone IV* 4 MG/ML 1 ML (4 MG) ONE (08:00)
[2019-10-25] MEDS ORDERED: Ondansetron INJ* 2 MG/ML VIAL ONE (08:00)
[2019-10-25] MEDS ORDERED: PROCHLORPERAZINE INJ 5 MG/ML 2 ML VIAL IV PRN (08:47)
[2019-10-25] MEDS ORDERED: Naloxone* 0.4 MG/ML 1 ML VIAL IV PRN (08:47)
[2019-10-25] MEDS ORDERED: diPHENhydraMINE IV* 50 MG/ML 1 ml VIAL (BENADRYL) IV PRN (08:47)
[2019-10-25] MEDS ORDERED: oxyCODONE TAB* 5 MG TAB PO PRN (08:47)
[2019-10-25] MEDS ORDERED: oxyCODONE TAB* 5 MG TAB ONE (09:18)
--- NOTE | 2019-10-25 09:47 | OP ---
DATE OF OPERATION: 10/25/19 - [facility] DATE OF : 66 SURGEON: Keyur Ayoub MD CLOUD ENGAGEMENT PARTNER: Dr. Mixon running the ultrasound. ANESTHESIA: General endotracheal tube. PRE-OP DIAGNOSIS: Postmenopausal bleeding. POST-OP DIAGNOSIS: Postmenopausal bleeding. OPERATIVE PROCEDURE: D and C, hysteroscopy under ultrasound guidance. ESTIMATED BLOOD LOSS: Minimal. SPECIMEN: Includes endometrium and atrophic cavity. FINDINGS: On ultrasound guidance, the cavity was atrophic and distorted.The curette and hysteroscope both appear to pass to the fundus not through, but benign-appearing tissue within the cavity, but appeared to be within the uterine cavity. DESCRIPTION OF PROCEDURE: The patient identified, the procedure identified as a D and C, hysteroscopy. The patient was taken to the operating room, prepped and draped in the usual fashion in the dorsal lithotomy position under general anesthesia. Two single-tooth tenaculums were placed on the anterior lip of the cervix. Using mini dilators and lacrimal probes, the cervix was progressively dilated up to #24 Chung dilator. Hysteroscope visualized the cavity that was markedly atrophic without any thickened endometrium. No real true endometrium could be identified, though appeared that we were within an ablated cavity. The Kevorkian curette was used as the larger curettes would not fit within the stenotic ablated cavity and it was noted with ultrasound that we were close to the fundus during the procedure. Small amounts of tissue were obtained. Good hemostasis was verified. At no time were any perforations noted. All sponge and instrument counts were correct and all instruments were removed from the vagina and the patient returned to recovery room in stable condition. [id number]/[facility] #: [id number] [facility]
[2019-10-25 10:14] VITALS: BP 129/85
== END 2019-10-25 10:02 | disposition home or self-care (01) ==
LOC: OR 06:03
PROVIDERS: ATTEND Obstetrics & Gynecology
DX: N95.0 Postmenopausal bleeding (principal); R00.2 Palpitations; F90.9 Attention-deficit hyperactivity disorder, unspecified type; E11.9 Type 2 diabetes mellitus without complications; Z79.84 Long term (current) use of oral hypoglycemic drugs
CPT/HCPCS: 88305; A9270-GY; J1100; J2250; J2405; J2704; J3010